=== PATIENT | female | born 1940 | race Caucasian/White ===

== ENCOUNTER → 2017-02-23 | Outpatient (CLI) | payer MEDICARE ==
[2017-02-23 11:40] LABS: ALANINE AMINOTRANSFERASE 23 U/L (9-52); ALBUMIN 4.3 g/dL (3.5-5.0); ALKALINE PHOSPHATASE 110 U/L (38-126); ANION GAP 12 (5-19); ASPARTATE AMINO TRANSFERASE 23 U/L (14-36); BILIRUBIN,DIRECT 0.3 mg/dL (0.0-0.4); BILIRUBIN,TOTAL 0.7 mg/dL (0.2-1.3); BLOOD UREA NITROGEN 45 mg/dL (7-20); CALCIUM 10.3 mg/dL (8.4-10.2); CARBON DIOXIDE 22 mmol/L (22-30); CHLORIDE 110 mmol/L (98-107); CHOLESTEROL 163.13 mg/dL (0-200); CREATININE RESULT 1.41 mg/dL (0.52-1.25); Direct HDL 47 mg/dL (>40); GLUCOSE 117 mg/dL (75-110); POTASSIUM 5.9 mmol/L (3.6-5.0); SODIUM 143.9 mmol/L (137-145); TOTAL PROTEIN 6.9 g/dL (6.3-8.2); TRIGLYCERIDES 152 mg/dL (<150)
[2017-02-23 11:53] LABS: DIRECT LDL 69 mg/dL (<100)
[2017-02-23 11:55] LABS: VLDL CHOLESTEROL 30.4 mg/dL (10-31)
== END ==
LOC: OD 09:27
PROVIDERS: ATTEND Internal Medicine
DX: I25.10 Atherosclerotic heart disease of native coronary artery without angina pectoris (principal); E78.4 Other hyperlipidemia; I10 Essential (primary) hypertension; Z79.899 Other long term (current) drug therapy; I25.2 Old myocardial infarction; I34.0 Nonrheumatic mitral (valve) insufficiency; I35.1 Nonrheumatic aortic (valve) insufficiency; I36.1 Nonrheumatic tricuspid (valve) insufficiency; I42.8 Other cardiomyopathies; R09.89 Other specified symptoms and signs involving the circulatory and respiratory systems
CPT/HCPCS: 36415; 80053; 80061

== ENCOUNTER 2017-08-10 10:26 | Observation (INO) | payer MEDICARE ==
--- NOTE | 2017-08-10 11:13 | ER Document Report ---
ED Medical Screen (RME) - General Chief Complaint: Shortness Of Breath Stated Complaint: SHORTNESS OF BREATH Time Seen by Provider: 08/10/17 11:11 Notes: Patient presents with 1 week of shortness of breath with exertion. She states she has not had any pain. She states probably 15 years ago she had a "heart attack" that required open heart surgery. She states at that time she did not have any pain but just shortness of breath as well. She is had no cough or cold symptoms. She denies any chronic lung conditions. Patient states that she did have a blood clot 2 years ago and took 6 months of Eliquis. She denies a history of heart failure. TRAVEL OUTSIDE OF THE [place] 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
[2017-08-10 11:59] LABS: HEMATOCRIT 40.7 % (36.0-47.0); HEMOGLOBIN 13.8 g/dL (12.0-15.5); HGB HCT DIFFERENCE 0.7; MEAN CORPUSCULAR HEMOGLOBIN 33.9 pg (27.0-33.4); MEAN CORPUSCULAR VOLUME 100 fl (80-97); RED BLOOD COUNT 4.08 10^6/uL (3.72-5.28); WHITE BLOOD COUNT 10.5 10^3/uL (4.0-10.5)
[2017-08-10 12:14] LABS: ALANINE AMINOTRANSFERASE 17 U/L (9-52); ALBUMIN 3.8 g/dL (3.5-5.0); ALKALINE PHOSPHATASE 124 U/L (38-126); ANION GAP 14 (5-19); ASPARTATE AMINO TRANSFERASE 21 U/L (14-36); BILIRUBIN,DIRECT 0.5 mg/dL (0.0-0.4); BILIRUBIN,TOTAL 0.7 mg/dL (0.2-1.3); BLOOD UREA NITROGEN 42 mg/dL (7-20); CALCIUM 9.9 mg/dL (8.4-10.2); CARBON DIOXIDE 20 mmol/L (22-30); CHLORIDE 109 mmol/L (98-107); CREATININE RESULT 1.55 mg/dL (0.52-1.25); GLUCOSE 117 mg/dL (75-110); POTASSIUM 4.4 mmol/L (3.6-5.0); SODIUM 143.1 mmol/L (137-145); TOTAL PROTEIN 6.8 g/dL (6.3-8.2)
[2017-08-10 12:24] LABS: BAND NEUTROPHILS % (MANUAL) 2 % (3-5); BASOPHILS % (MANUAL) 0 % (0-2); EOSINOPHILS % (MANUAL) 8 % (0-6); LYMPHOCYTES % (MANUAL) 15 % (13-45); TOTAL CELLS COUNTED 100
[2017-08-10 12:25] LABS: TROPONIN I 0.014 ng/mL
[2017-08-10 12:31] LABS: ANISOCYTOSIS SLIGHT; OVALOCYTES SLIGHT; PLATELET CLUMPS PRESENT; POIKILOCYTOSIS SLIGHT
--- NOTE | 2017-08-10 12:31 | ER Document Report ---
ED Respiratory Problem - General Chief Complaint: Shortness Of Breath Stated Complaint: SHORTNESS OF BREATH Time Seen by Provider: 08/10/17 11:11 Information source: Patient Notes: 77-year-old female that presents today with around 2 weeks of some shortness of breath only with ambulation. She denies any and all chest pain. She denies any calf pain or leg swelling. She denies any recent trips or travel. Patient has had a bypass around 14 years ago secondary to myocardial infarction. Patient did have a DVT 2 years ago and was treated on 6 months of Eliquis. Patient denies any difficulty with laying completely flat at night. TRAVEL OUTSIDE OF THE [place] IN LAST 30 DAYS: No - HPI Onset: Other - See above Duration: Better Quality of pain: No pain Severity: Mild Pain Level: Denies Context: Other - See above Short of Breath: Mild Sputum amount: None Associated symptoms: Other - See above Similar symptoms previously: Yes Recently seen / treated by doctor: No - Related Data Allergies/Adverse Reactions: No Known Allergies Allergy (Verified 08/10/17 10:33) Past Medical History - General Information source: Patient - Social History Smoking Status: Unknown if Ever Smoked Cigarette use (# per day): No Chew tobacco use (# tins/day): No Smoking Education Provided: No Frequency of alcohol use: None Family History: Reviewed & Not Pertinent - Past Medical History Cardiac Medical History: Reports: Hx Coronary Artery Disease - ON MEDICATION FOR CHOLESTEROL, Hx Heart Attack, Hx Hypercholesterolemia, Hx Hypertension Pulmonary Medical History: Denies: Hx Asthma, Hx Bronchitis, Hx COPD, Hx Pneumonia Neurological Medical History: Denies: Hx Cerebrovascular Accident, Hx Seizures Renal/ Medical History: Denies: Hx Peritoneal Dialysis Musculoskeltal Medical History: 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 denies: Rash Neurological/Psychological: Other - no slurred speech -: Yes All other systems reviewed and negative Physical Exam - Vital signs Vitals: Temp Pulse Resp BP Pulse Ox 97.7 F 78 18 156/78 H 99 08/10/17 10:30 08/10/17 10:30 08/10/17 10:30 08/10/17 10:30 08/10/17 10:30 Notes: Reviewed vital signs and nursing note as charted by RN. CONSTITUTIONAL: Alert and oriented and responds appropriately to questions. Well -appearing; well-nourished HEAD: Normocephalic; atraumatic EYES: PERRL; Conjunctivae clear, sclerae non-icteric ENT: Normal nose; no rhinorrhea NECK: Supple without meningismus; non-tender; no cervical lymphadenopathy, no masses CARD: Regular rate and rhythm; no murmurs, no clicks, no rubs, no gallops; symmetric distal pulses RESP: Normal chest excursion without splinting or tachypnea; breath sounds clear and equal bilaterally; no wheezes, no rhonchi, no rales ABD/GI: Normal bowel sounds; non-distended; soft, non-tender, no rebound, no guarding; no palpable organomegaly or masses BACK: The back appears normal and is non-tender to palpation, there is no CVA tenderness EXT: Normal ROM in all joints; non-tender to palpation; no edema SKIN: Normal color for age and race; warm; dry; good turgor; capillary refill < 2 seconds; no acute lesions noted NEURO: Moves all extremities equally; Motor and sensory function intact PSYCH: The patient's mood and manner are appropriate. Grooming and personal hygiene are appropriate. Course - Re-evaluation Re-evalutation: 08/10/17 12:29 Given the history and physical examination we will order basic labs, EKG, x-ray of the chest, and reassess. Given that the patient denies any and all chest pain, with shortness of breath only upon exertion, relieved with rest, with no calf pain or leg swelling, no recent trips or travel, I do not believe a DVT is likely at this time. EKG shows a heart of 78, normal sinus rhythm, normal axis, no obvious ST elevation or depression. Inverted T waves in lead III with flattening T waves in leads II, aVF, V5 and V6. Old EKG from 2012 show similar findings. D-dimer that was ordered in triage is positive. CTA has been ordered. I will provide 500 cc normal saline. Patient's creatinine as recorded. Patient does have an elevated BNP. 08/10/17 13:43 I was called by the radiologist that it appears the patient has a pulmonary embolism. 08/10/17 14:01 I have called and spoke to the hospitalist Dr. Johnston. He would like me to give a 1mg/kg subcu Lovenox dose despite the creatinine at this time and will adjust accordingly. - Vital Signs Vital signs: Temp Pulse Resp BP Pulse Ox 97.7 F 78 18 156/78 H 99 08/10/17 10:30 08/10/17 10:30 08/10/17 10:30 08/10/17 10:30 08/10/17 10:30 - Laboratory Result Diagrams: 08/10/17 11:45 08/10/17 11:45 Laboratory results interpreted by me: 08/10/17 08/10/17 08/10/17 11:45 11:45 11:45 MCV 100 H MCH 33.9 H Band Neutrophils % 2 L Eosinophils % (Manual) 8 H Absolute Eos (Manual) 0.8 H D-Dimer 6.53 H Chloride 109 H Carbon Dioxide 20 L BUN 42 H Creatinine 1.55 H Est GFR ( Amer) 39 L Est GFR (Non-Af Amer) 32 L Glucose 117 H Direct Bilirubin 0.5 H NT-Pro-B Natriuret Pep 08/10/17 11:45 MCV MCH Band Neutrophils % Eosinophils % (Manual) Absolute Eos (Manual) D-Dimer Chloride Carbon Dioxide BUN Creatinine Est GFR ( Amer) Est GFR (Non-Af Amer) Glucose Direct Bilirubin NT-Pro-B Natriuret Pep 2450 H Discharge - Discharge Clinical Impression: Pulmonary embolism Qualifiers: Pulmonary embolism type: other Chronicity: acute Acute cor pulmonale presence: without acute cor pulmonale Qualified Code(s): I26.99 - Other pulmonary embolism without acute cor pulmonale Condition: Fair Disposition: ADMITTED INPATIENT Admitting Provider: Hospitalist Unit Admitted: Telemetry
[2017-08-10] MEDS ORDERED: NORMAL SALINE 1000 ML 1,000 ML IV ONE (12:32)
--- NOTE | 2017-08-10 13:23 | RADIOLOGY REPORT (SQ) ---
EXAM DESCRIPTION: CHEST PA/LAT COMPLETED DATE/TIME: 08/10/2017 12:18 pm REASON FOR STUDY: sob COMPARISON: 08/03/2013 EXAM PARAMETERS: NUMBER OF VIEWS: two views TECHNIQUE: Digital Frontal and Lateral radiographic views of the chest acquired. RADIATION DOSE: NA LIMITATIONS: none FINDINGS: LUNGS AND PLEURA: Parenchymal opacities at the lung bases. No pneumothorax. No effusions . MEDIASTINUM AND HILAR STRUCTURES: No masses or contour abnormalities. HEART AND VASCULAR STRUCTURES: Heart normal size. No evidence for failure. BONES: Scoliosis. Old posttraumatic changes of the left shoulder. HARDWARE: CABG hardware. OTHER: No other significant finding. IMPRESSION: Basilar pneumonitis. TECHNICAL DOCUMENTATION: JOB ID: [id number] [employer]- All Rights Reserved
--- NOTE | 2017-08-10 13:37 | RADIOLOGY REPORT (SQ) ---
EXAM DESCRIPTION: CTA CHEST COMPLETED DATE/TIME: 08/10/2017 1:09 pm REASON FOR STUDY: 9, sob COMPARISON: None. TECHNIQUE: CT scan of the chest performed using helical scanning technique with dynamic intravenous contrast injection. Images reviewed with lung, soft tissue and bone windows. Reconstructed coronal and sagittal MPR images reviewed. Additional 3 dimensional post-processing performed to develop Maximal Intensity Projection images (CA P). All images stored on PACS. All CT scanners at this facility use dose modulation, iterative reconstruction, and/or weight based d osing when appropriate to reduce radiation dose to as low as reasonably achievable (ALARA). [facility]: Dose Right [facility]: CareDose [facility]: Dose Right [facility]: Teradose 4D [facility]: Coreval[employer] Systems CONTRAST TYPE AND DOSE: contrast/concentration: Isovue 370.00 mg/ml; Total Contrast Delivered: 71.0 ml; Total Saline Delivered: 96.5 ml Contrast bolus optimized for the pulmonary arteries. Not diagnostic for the aorta. RENAL FUNCTION: BUN 42 creatinine 1.6 RADIATION DOSE: Up-to-date CT equipment and radiation dose reduction techniques were employed. CTDIv ol: 16.5 - 23.7 mGy. DLP: 879 mGy-cm. . LIMITATIONS: Positioning. Motion. FINDINGS: LUNGS AND PLEURA: Subsegmental airspace opacities in the right upper lobe and both lower l obes. No effusions. AORTA AND GREAT VESSELS: No aneurysm. Contrast bolus not optimized for the aorta. HEART: No pericardial effusion. Cardiomegaly. Coronary arterial calcifications. PULMONARY ARTERIES: Filling defects in the right main pulmonary artery and distal branches. HILAR AND MEDIASTINAL STRUCTURES: No identified masses or abnormal nodes. HARDWARE: CABG. UPPER ABDOMEN: Cholelithiasis. THYROID AND OTHER SOFT TISSUES: No masses. No adenopathy. BONES: No acute or significant finding. 3D MIPS: Confirm above findings. OTHER: No other significant finding. IMPRESSION: Positive for pulmonary emboli. COMMENT: Pertinent positive findings of the imaging study reported to SARAH NELSON MD at13:31 on 10/2017. Quality ID # [id number]: Final reports with documentation of one or more dose reduction techniques (e.g., Au tomated exposure control, adjustment of the mA and/or kV according to patient size, use of iterative reconstruction technique) TECHNICAL DOCUMENTATION: JOB ID: [id number] [employer]- All Rights Reserved
[2017-08-10] MEDS ORDERED: ENOXAPARIN SODIUM INJ 80 MG/0.8 ML DISP.SYRIN SUBCUT SCH (14:00)
[2017-08-10] MEDS ORDERED: ONDANSETRON HCL INJ/PF 4 MG/2 ML SDV IV PRN (14:35)
[2017-08-10] MEDS ORDERED: ONDANSETRON 4 MG TAB.RAPDIS PO PRN (14:35)
[2017-08-10] MEDS ORDERED: ACETAMINOPHEN 325 MG TABLET PO PRN (14:35)
[2017-08-10] MEDS ORDERED: ALBUTEROL SULFATE 0.083% NEB 2.5 MG/3 ML AMPUL NEB PRN (14:35)
[2017-08-10] MEDS ORDERED: TRAMADOL HCL 50 MG TABLET PO PRN (14:47)
[2017-08-10] MEDS ORDERED: OXYCODONE-ACETAMINOPHEN 5-325 MG TABLET PO PRN ×2 (14:47→15:02)
--- NOTE | 2017-08-10 15:06 | PDOC H&P ---
History of Present Illness Admission Date/PCP: 08/10/17 14:22 Patient complains of: Shortness of breath for 2 weeks. History of Present Illness: SARBJIT BECERRIL is a 77 year old female has a history of DVT in the past and had been on blood thinner previously. She presents with a two-week history of worsening shortness of breath. The patient reports over the last 2 weeks her breathing has gotten worse. She becomes dyspneic with minimal exertion. Her family finally convinced her to come to the emergency room when she was having difficulty going to the bathroom because of shortness of breath. The patient was found to have a right-sided pulmonary embolism in the right main artery as well as clot present in some distal branches. Patient denies having any chest pain with this. She denies having any palpitations. She denies any lower extremity edema. Denies any orthopnea or PND. The patient does have a history of coronary artery disease and the [id number] reports that her presenting sign of coronary disease was dyspnea on exertion. Past Medical History Cardiac Medical History: Reports: Coronary Artery Disease - ON MEDICATION FOR CHOLESTEROL, Myocardial Infarction, Hyperlipidema, Hypertension Pulmonary Medical History: Denies: Asthma, Bronchitis, Chronic Obstructive Pulmonary Disease (COPD), Pneumonia EENT Medical History: Reports: None Neurological Medical History: Denies: Seizures Endocrine Medical History: Reports: None Renal/ Medical History: Reports: Chronic Kidney Disease Malignancy Medical History: Reports: None GI Medical History: Reports: None Musculoskeltal Medical History: Reports: Arthritis - RHEUMATOID Psychiatric Medical History: Reports: None Traumatic Medical History: Reports: None Hematology: Denies: Anemia Infectious Medical History: Reports: None Past Surgical History Past Surgical History: Reports: Coronary Artery Bypass Graft Social History Information Source: Patient Lives with: Family Smoking Status: Never Smoker Frequency of Alcohol Use: None Hx Recreational Drug Use: No Drugs: None - Advance Directive Resuscitation Status: Do Not Resuscitate Family History Family History: Mother at age 94 and had no chronic health problems. Father at age 78 and had coronary artery disease as well as a CVA. Parental Family History Reviewed: Yes Children Family History Reviewed: No Sibling(s) Family History Reviewed.: No Medication/Allergy Home Medications: Amlodipine Besylate [Norvasc 5 mg Tablet] 5 mg PO QHS 07/03/13 Hydrochlorothiazide 25 mg PO DAILY 07/03/13 Isosorbide Mononitrate [Isosorbide Mononitrate ER] 30 mg PO DAILY 07/03/13 Losartan Potassium 100 mg PO DAILY 07/03/13 Metoprolol Tartrate [Lopressor 25 mg Tablet] 50 mg PO BID 07/03/13 Ramipril [Altace 10 mg Capsule] 1 cap PO BID 07/03/13 Acetaminophen [Tylenol 325 mg Tablet] 650 mg PO Q4HP PRN #60 tablet 07/06/13 Tramadol HCl [Ultram 50 mg Tablet] 50 mg PO Q6HP PRN #30 tablet 07/06/13 Aspirin [Aspirin EC] 81 mg PO DAILY 08/03/13 Ciprofloxacin HCl [Cipro 500 mg Tablet] 500 mg PO BID 08/10/13 Oxycodone HCl/Acetaminophen [Percocet 5-325 mg Tablet] 1 - 2 tab PO ASDIR PRN Cephalexin Monohydrate [Keflex 500 mg Capsule] 500 mg PO QID #28 capsule Allergies/Adverse Reactions: No Known Allergies Allergy (Verified 08/10/17 10:33) Review of Systems Constitutional: ABSENT: chills, fever(s), headache(s), weight gain, weight loss Eyes: ABSENT: visual disturbances Ears: ABSENT: hearing changes Cardiovascular: PRESENT: dyspnea on exertion. ABSENT: chest pain, edema, orthropnea, palpitations Respiratory: PRESENT: dyspnea. ABSENT: cough, hemoptysis, sputum Gastrointestinal: ABSENT: abdominal pain, constipation, diarrhea, hematemesis, hematochezia, nausea, vomiting Genitourinary: ABSENT: dysuria, hematuria Musculoskeletal: ABSENT: joint swelling Integumentary: ABSENT: rash, wounds Neurological: ABSENT: abnormal gait, abnormal speech, confusion, dizziness, focal weakness, syncope Psychiatric: ABSENT: anxiety, depression Endocrine: ABSENT: cold intolerance, heat intolerance, polydipsia, polyuria Hematologic/Lymphatic: ABSENT: easy bleeding, easy bruising Physical Exam Vital Signs: Temp Pulse Resp BP Pulse Ox 97.7 F 78 18 156/78 H 99 08/10/17 10:30 08/10/17 10:30 08/10/17 10:30 08/10/17 10:30 08/10/17 10:30 General appearance: PRESENT: mild distress Head exam: PRESENT: atraumatic, normocephalic Eye exam: PRESENT: conjunctiva pink, EOMI, PERRLA. ABSENT: scleral icterus Ear exam: PRESENT: normal external ear exam Mouth exam: PRESENT: moist, tongue midline Neck exam: ABSENT: JVD Respiratory exam: PRESENT: clear to auscultation paco. ABSENT: rales, rhonchi, wheezes Cardiovascular exam: PRESENT: RRR. ABSENT: diastolic murmur, rubs, systolic murmur Pulses: PRESENT: normal dorsalis pedis pul Vascular exam: PRESENT: normal capillary refill GI/Abdominal exam: PRESENT: normal bowel sounds, soft. ABSENT: distended, guarding, mass, organolmegaly, rebound, tenderness Rectal exam: PRESENT: deferred Extremities exam: ABSENT: calf tenderness, clubbing, pedal edema Neurological exam: PRESENT: alert, awake, oriented to person, oriented to place , oriented to time, oriented to situation, CN II-XII grossly intact. ABSENT: motor sensory deficit Psychiatric exam: PRESENT: appropriate affect Skin exam: PRESENT: dry, intact, warm. ABSENT: cyanosis, rash Results Impressions: Chest X-Ray 08/10/17 11:11 IMPRESSION: Basilar pneumonitis. Chest/Abdomen CTA 08/10/17 12:31 IMPRESSION: Positive for pulmonary emboli. Assessment & Plan - Diagnosis (1) Pulmonary embolism Qualifiers: Pulmonary embolism type: other Chronicity: acute Acute cor pulmonale presence: without acute cor pulmonale Qualified Code(s): I26.99 - Other pulmonary embolism without acute cor pulmonale Is this a current diagnosis for this admission?: Yes Plan: Patient has received a dose of Lovenox. Will start on Eliquis. She is not hypoxic but is dyspneic with minimal exertion. We will admit as an observation and if she is not hypoxic tomorrow, we can hopefully discharge home tomorrow. (2) Hypertension Is this a current diagnosis for this admission?: Yes Plan: Continue with Lopressor, Norvasc, hydrochlorothiazide, Altace. (3) Hyperlipidemia Is this a current diagnosis for this admission?: Yes Plan: Continue with Zocor. (4) Coronary artery disease Is this a current diagnosis for this admission?: Yes Plan: we will continue with aspirin 81 mg and Imdur. (5) Osteoarthritis Is this a current diagnosis for this admission?: Yes (6) DNR (do not resuscitate) Is this a current diagnosis for this admission?: Yes Plan: Patient requests to be a DO NOT RESUSCITATE. - Time Time Spent: 50 to 70 Minutes - Plan Summary Plan Summary: Will admit as an observation.
[2017-08-10 15:31] LABS: PROTHROMBIN TIME 13.5 SEC (11.4-15.4)
[2017-08-10 15:32] LABS: PARTIAL THROMBOPLASTIN TIME 29.7 SEC (23.5-35.8)
[2017-08-10] MEDS ORDERED: METOPROLOL TARTRATE 25 MG TABLET PO SCH (18:00)
[2017-08-10] MEDS ORDERED: RAMIPRIL 10 MG CAPSULE PO SCH (18:00)
[2017-08-10 18:04] LABS: CREATINE KINASE MB 2.21 ng/mL (<4.55); TROPONIN I 0.016 ng/mL
[2017-08-10] MEDS: APIXABAN 5 MG TABLET PO SCH (18:33)
--- NOTE | 2017-08-10 19:53 | EKG REPORT ---
SEVERITY:- BORDERLINE ECG - SINUS RHYTHM BORDERLINE T ABNORMALITIES, INFERIOR LEADS : Confirmed by: Linh Winter 10-Aug-2017 19:52:30
[2017-08-10] MEDS ORDERED: SIMVASTATIN 40 MG TABLET PO SCH (22:00)
[2017-08-10] MEDS ORDERED: FAMOTIDINE 20 MG TABLET PO SCH (22:00)
[2017-08-10] MEDS ORDERED: MIRTAZAPINE 15 MG TABLET PO SCH (22:00)
[2017-08-10] MEDS: RAMIPRIL 10 MG CAPSULE PO SCH (22:32)
[2017-08-10] MEDS: FAMOTIDINE 20 MG TABLET PO SCH (22:33)
[2017-08-10] MEDS: METOPROLOL TARTRATE 50 MG TABLET PO SCH (22:33)
[2017-08-11 00:09] LABS: CREATINE KINASE MB 2.16 ng/mL (<4.55); TROPONIN I 0.024 ng/mL
[2017-08-11 05:53] LABS: HEMOGLOBIN 12.7 g/dL (12.0-15.5); HGB HCT DIFFERENCE -0.9; MEAN CORPUSCULAR HEMOGLOBIN 32.5 pg (27.0-33.4); MEAN CORPUSCULAR HGB CONC 32.6 g/dL (32.0-36.0); MEAN CORPUSCULAR VOLUME 100 fl (80-97); RED BLOOD COUNT 3.91 10^6/uL (3.72-5.28); RED CELL DISTRIBUTION WIDTH 14.2 % (11.5-14.0); WHITE BLOOD COUNT 7.5 10^3/uL (4.0-10.5)
[2017-08-11 06:08] LABS: ANION GAP 11 (5-19); BLOOD UREA NITROGEN 31 mg/dL (7-20); CALCIUM 9.9 mg/dL (8.4-10.2); CARBON DIOXIDE 19 mmol/L (22-30); CHLORIDE 114 mmol/L (98-107); CREATINE KINASE 59 U/L (30-135); CREATININE RESULT 1.19 mg/dL (0.52-1.25); GLUCOSE 98 mg/dL (75-110); MAGNESIUM 1.6 mg/dL (1.6-2.3); POTASSIUM 4.4 mmol/L (3.6-5.0); SODIUM 143.6 mmol/L (137-145)
[2017-08-11 06:20] LABS: CREATINE KINASE MB 2.1 ng/mL (<4.55); TROPONIN I 0.028 ng/mL
[2017-08-11] MEDS: FAMOTIDINE 20 MG TABLET PO SCH (09:44)
[2017-08-11] MEDS: RAMIPRIL 10 MG CAPSULE PO SCH (09:45)
[2017-08-11] MEDS: APIXABAN 5 MG TABLET PO SCH (09:45)
[2017-08-11] MEDS: METOPROLOL TARTRATE 50 MG TABLET PO SCH (09:46)
[2017-08-11] MEDS ORDERED: HYDROCHLOROTHIAZIDE 12.5 MG CAPSULE PO SCH (10:00)
[2017-08-11] MEDS ORDERED: ISOSORBIDE MONONITRATE 30 MG TAB.ER.24H PO SCH (10:00)
[2017-08-11] MEDS ORDERED: HYDROCHLOROTHIAZIDE 25 MG TABLET PO SCH (10:00)
[2017-08-11] MEDS ORDERED: ASPIRIN 81 MG TABLET, ENT COATED PO SCH (10:00)
--- NOTE | 2017-08-11 10:22 | Physician Advisory Note ---
Physician Advisor ProgressNote .: [facility] I have reviewed [facility] medical record for this patient. Physician Advisor Statement: Please consider documenting, if you believe this is accurate for this pt: 1. "Mild acute respiratory failure with P/F ratio of 286 associated with "Verdana 4d [significant acute sx present at same time, especially if evidence of increased work of breathing] - Pt's O2 sat 95% on 2L O2 this AM gives a P/F ratio of 286, which is consistent with "mild acute respiratory failure" if she is also, at same time, having significant acute sx (especially evidence of increased work of breathing) , which are documented. Status: If she is felt to clinically need ongoing hospital level care & monitoring for a 2nd MN, please document reasons & may consider change to Inpatient status. Thanks! CK
--- NOTE | 2017-08-11 11:50 | PDOC DISCHARGE SUMMARY ---
General - Admit/Disc Date/PCP Admission Date/Primary Care Provider: 08/10/17 14:35 Discharge Date: 08/11/17 - Discharge Diagnosis (1) Respiratory failure Is this a current diagnosis for this admission?: Yes Summary: Mild respiratory failure secondary to acute pulmonary embolism. She is not hypoxic on room air. (2) Pulmonary embolism Is this a current diagnosis for this admission?: Yes Summary: Patient has had a previous DVT several years ago. Given that this is her second dose she needs lifelong anticoagulation. (3) Hypertension Is this a current diagnosis for this admission?: Yes (4) Hyperlipidemia Is this a current diagnosis for this admission?: Yes (5) Coronary artery disease Is this a current diagnosis for this admission?: Yes (6) Osteoarthritis Is this a current diagnosis for this admission?: Yes (7) DNR (do not resuscitate) Is this a current diagnosis for this admission?: Yes - Additional Information Resuscitation Status: Do Not Resuscitate Discharge Diet: Cardiac Discharge Activity: Activity As Tolerated Home Medications: Acetaminophen [Tylenol Arthritis 650 mg Tablet] 1,300 mg PO [facility] 08/10/17 Acetaminophen [Tylenol Arthritis 650 mg Tablet] 650 mg PO QHS 08/10/17 Amlodipine Besylate [Norvasc 10 mg Tablet] 10 mg PO DAILY 08/10/17 Aspirin [Aspirin EC] 81 mg PO DAILY 08/10/17 Cholecalciferol (Vitamin D3) [Vitamin D3 1000 Unit Tablet] 1,000 unit PO DAILY 08/10/17 Diclofenac Sodium [Voltaren] 1 applic TP [facility] 08/10/17 Hydrochlorothiazide [Hydrodiuril 25 mg Tablet] 25 mg PO DAILY 08/10/17 Isosorbide Mononitrate [Isosorbide Mononitrate ER] 30 mg PO DAILY 08/10/17 Metoprolol Tartrate [Lopressor 50 mg Tablet] 50 mg PO Q12 08/10/17 Mirtazapine 7.5 mg PO QHS 08/10/17 Ramipril [Altace 10 mg Capsule] 10 mg PO Q12 08/10/17 Simvastatin [Zocor 40 mg Tablet] 40 mg PO QHS 08/10/17 Tramadol HCl [Ultram 50 mg Tablet] 100 mg PO QA 08/10/17 Apixaban [Eliquis 5 mg Tablet] 5 mg PO BID #60 tablet 08/11/17 Oxycodone HCl/Acetaminophen [Percocet 5-325 mg Tablet] 1 tab PO Q4HP PRN #10 tablet 08/11/17 History of Present Illness History of Present Illness: SARBJIT BECERRIL is a 77 year old female has a history of DVT in the past and had been on blood thinner previously. She presents with a two-week history of worsening shortness of breath. The patient reports over the last 2 weeks her breathing has gotten worse. She becomes dyspneic with minimal exertion. Her family finally convinced her to come to the emergency room when she was having difficulty going to the bathroom because of shortness of breath. The patient was found to have a right-sided pulmonary embolism in the right main artery as well as clot present in some distal branches. Patient denies having any chest pain with this. She denies having any palpitations. She denies any lower extremity edema. Denies any orthopnea or PND. The patient does have a history of coronary artery disease and the [id number] reports that her presenting sign of coronary disease was dyspnea on exertion. Hospital Course Hospital Course: 77-year-old who presented with two-week history of shortness of breath. Patient was found to have a right-sided pulmonary emboli. Patient had one clot in the mainstem and several smaller clots in the small branches. The patient short of breath but was not hypoxic. She also was not tachypneic at rest. Patient was monitored overnight and started on Eliquis. The patient shows no evidence for congestive heart failure. It is felt that she is stable for discharge to home. She did show some mild respiratory failure which she presented. The patient's oxygen saturations at rest were greater than 90%. The patient has a history of coronary artery disease and serial troponins were checked and they were in the normal range. Patient's other medical problems were stable during this hospitalization. We will discharge the patient home with home health for physical therapy as she is very debilitated. Physical Exam Vital Signs: Temp Pulse Resp BP Pulse Ox 98.5 F 86 18 178/73 H 96 08/11/17 07:19 08/11/17 10:12 08/11/17 10:12 08/11/17 07:19 08/11/17 10:12 Intake & Output 08/10/17 08/11/17 08/12/17 06:59 06:59 06:59 Intake Total 20 Output Total 400 Balance -380 Weight 71.8 kg General appearance: PRESENT: no acute distress Eye exam: PRESENT: conjunctiva pink. ABSENT: scleral icterus Mouth exam: PRESENT: moist, tongue midline Neck exam: ABSENT: JVD Respiratory exam: PRESENT: clear to auscultation paco. ABSENT: rales, rhonchi, wheezes Cardiovascular exam: PRESENT: RRR. ABSENT: diastolic murmur, rubs, systolic murmur GI/Abdominal exam: PRESENT: normal bowel sounds, soft. ABSENT: distended, guarding, mass, organolmegaly, rebound, tenderness Extremities exam: ABSENT: calf tenderness, clubbing, pedal edema Neurological exam: PRESENT: alert, awake, oriented to person, oriented to place , oriented to time, oriented to situation, CN II-XII grossly intact. ABSENT: motor sensory deficit Psychiatric exam: PRESENT: appropriate affect Skin exam: PRESENT: dry, intact, warm. ABSENT: cyanosis, rash Results Laboratory Results: 08/11/17 05:32 08/11/17 05:32 08/11/17 08/11/17 05:32 05:32 WBC 7.5 RBC 3.91 Hgb 12.7 Hct 39.0 MCV 100 H MCH 32.5 MCHC 32.6 RDW 14.2 H Plt Count 267 Sodium 143.6 Potassium 4.4 Chloride 114 H Carbon Dioxide 19 L Anion Gap 11 BUN 31 H Creatinine 1.19 Est GFR ( Amer) 53 L Est GFR (Non-Af Amer) 44 L Glucose 98 Calcium 9.9 Magnesium 1.6 08/10/17 08/10/17 08/10/17 17:30 17:30 23:35 Creatine Kinase 77 60 CK-MB (CK-2) 2.21 Troponin I 0.016 08/10/17 08/11/17 08/11/17 23:35 05:32 05:32 Creatine Kinase 59 CK-MB (CK-2) 2.16 2.10 Troponin I 0.024 0.028 Impressions: Chest X-Ray 08/10/17 11:11 IMPRESSION: Basilar pneumonitis. Chest/Abdomen CTA 08/10/17 12:31 IMPRESSION: Positive for pulmonary emboli. Qualifiers PATEINT BEING DISCHARGED WITH ANY OF THE FOLLOWING DIAGNOSIS?: No Plan Discharge Plan: Patient is discharged home with home health for physical therapy. Follow-up with primary care doctor in 1 week. Time Spent: Less than 30 Minutes
[2017-08-11 14:33] VITALS: BP 141/62
== END 2017-08-11 14:23 | disposition home health service (06) ==
LOC: ER 10:26 → INTOOBSV 14:22 → UNDOADMOB 14:22 → EH 14:22 → 3W 20:25
PROVIDERS: ADMIT Internal Medicine; ATTEND Internal Medicine
DX: I26.99 Other pulmonary embolism without acute cor pulmonale (principal); J96.91 Respiratory failure, unspecified with hypoxia; I12.9 Hypertensive chronic kidney disease with stage 1 through stage 4 chronic kidney disease, or unspecified chronic kidney disease; N18.9 Chronic kidney disease, unspecified; E78.5 Hyperlipidemia, unspecified; I25.10 Atherosclerotic heart disease of native coronary artery without angina pectoris; M19.90 Unspecified osteoarthritis, unspecified site; M06.9 Rheumatoid arthritis, unspecified; R53.81 Other malaise; I25.2 Old myocardial infarction; Z66 Do not resuscitate; Z79.82 Long term (current) use of aspirin; Z79.899 Other long term (current) drug therapy; Z86.718 Personal history of other venous thrombosis and embolism; Z95.1 Presence of aortocoronary bypass graft; Z82.49 Family history of ischemic heart disease and other diseases of the circulatory system; Z82.3 Family history of stroke
CPT/HCPCS: 93005; 99285; 96360; 36415 ×2; 82553 ×2; 82550 ×2; 83735; 85025; 85027; 85610; 85730; 80048; 80053; 84484 ×2; 85379; 83880; 71020; 71275; 93010; G0378 ×3; A9270 ×11; J3490; J7030; J1650

== ENCOUNTER 2018-10-01 14:16 | Inpatient (IN) | payer MEDICARE ==
--- NOTE | 2018-10-01 15:02 | ER Document Report ---
ED Respiratory Problem - General Chief Complaint: Shortness Of Breath Stated Complaint: SHORTNESS OF BREATH Time Seen by Provider: 10/01/18 14:36 Notes: Patient is complaining of getting short of breath with any exertion over the past 3-4 days. She has chronic difficulty breathing and has had blood clots in her legs and in her lungs in the past. She was on oxygen at one time but it has been discontinued because her oxygen level during the night was normal. She is currently on Eliquis 5 mg twice a day for about the past year since she had a pulmonary embolism last July. Patient says she has a slight cough at night when she lays down. Denies any chest pains. Denies any fevers. Has not noticed significant swelling of either lower leg. Earlier today, patient was complaining of blurry vision and sparkling vision in both eyes, but that symptoms as completely subsided now. She has had some left arm pain chronically and has a history of breaking her left arm. Patient had exactly the same symptoms of being out of breath, but no other symptoms when she had a heart attack over 15 years ago. She has undergone a CABG and is on medications for hypertension and high cholesterol. TRAVEL OUTSIDE OF THE [place] 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 EENT: Denies eye, ear, nose or mouth or throat pain or other symptoms. CARDIOVASCULAR: Denies chest pain. RESPIRATORY: Slight cough when she lays down at night. See HPI. GASTROINTESTINAL: Denies abdominal pain or nausea, vomiting, or diarrhea. GENITOURINARY: Denies difficulty or painful urinating, urinary frequency, blood in urine. MUSCULOSKELETAL: Denies back or neck pain. Denies joint pain or swelling. SKIN: Denies rash or skin lesions. NEUROLOGICAL: Denies LOC or altered mental status. Denies headache. Denies sensory loss or motor deficits. ALL OTHER SYSTEMS REVIEWED AND NEGATIVE. Physical Exam - Vital signs Vitals: Temp Pulse Resp BP Pulse Ox 98.1 F 67 18 101/50 L 99 10/01/18 14:36 10/01/18 14:36 10/01/18 14:36 10/01/18 14:36 10/01/18 14:36 Interpretation: Normal. No: Hypoxic - Notes Notes: PHYSICAL EXAMINATION: GENERAL: Well-appearing, in no acute distress. O2 sat 99% on room air. Does not appear short of breath. HEAD: Atraumatic, normocephalic. EYES: Pupils equal round and reactive to light, extraocular movements intact. ENT: oropharynx clear without exudates. Moist mucous membranes. NECK: Normal range of motion, supple. LUNGS: Breath sounds clear and equal bilaterally. HEART: Regular rate and rhythm without murmurs. ABDOMEN: Soft, nontender. No guarding or rebound. No masses. Rectal exam reveals no masses. Merida-black stool on glove. No suzan blood and no melena. BACK: No tenderness throughout entire back. EXTREMITIES: Normal range of motion without pain. No swelling or tenderness of either side. Negative Homans bilaterally. NEUROLOGICAL: Normal speech, normal gait. Uses a walker. Appears weak. Normal sensory, motor, and reflex exams. Awake, alert, and oriented x3. PSYCH: Normal mood, normal affect. SKIN: Warm, dry, no rashes. Course - Vital Signs Vital signs: Temp Pulse Resp BP Pulse Ox 97.6 F 61 16 120/56 L 99 10/01/18 17:35 10/01/18 17:35 10/01/18 17:35 10/01/18 17:35 10/01/18 17:35 - Laboratory Result Diagrams: 10/01/18 15:30 10/01/18 15:30 Laboratory results interpreted by me: 10/01/18 10/01/18 10/01/18 15:30 15:30 15:30 RBC 1.60 L Hgb 5.6 L Hct 17.1 L MCV 107 H MCH 35.0 H RDW 17.7 H VBG HCO3 Chloride 113 H Carbon Dioxide 19 L BUN 50 H Creatinine 1.33 H Est GFR ( Amer) 46 L Est GFR (Non-Af Amer) 38 L Creatine Kinase 25 L NT-Pro-B Natriuret Pep 2400 H Total Protein 4.9 L Albumin 2.8 L Urine Nitrite Ur Leukocyte Esterase Crossmatch 10/01/18 10/01/18 10/01/18 15:30 16:21 17:05 RBC Hgb Hct MCV MCH RDW VBG HCO3 17.9 L Chloride Carbon Dioxide BUN Creatinine Est GFR ( Amer) Est GFR (Non-Af Amer) Creatine Kinase NT-Pro-B Natriuret Pep Total Protein Albumin Urine Nitrite POSITIVE H Ur Leukocyte Esterase SMALL H Crossmatch See Detail - Diagnostic Test Radiology reviewed: Image reviewed, Reports reviewed Radiology results interpreted by me: 10/01/18 17:44 Chest x-ray shows no acute abnormalities. - EKG Interpretation by [place] EKG shows normal: Sinus rhythm Rate: Normal Rhythm: NSR - At 61 Additional EKG results interpreted by me: 10/01/18 17:45 EKG is normal. Discharge - Discharge Clinical Impression: Anemia, Dyspnea Condition: Stable Disposition: ADMITTED INPATIENT Admitting Provider: Hospitalist Unit Admitted: Telemetry
[2018-10-01 16:03] LABS: VENOUS BLOOD BASE EXCESS -7.5 mmol/L; VENOUS BLOOD HCO3 17.9 mmol/L (20-32); VENOUS BLOOD PCO2 36.3 mmHg (35-63); VENOUS BLOOD PH 7.31 (7.30-7.42)
[2018-10-01 16:06] LABS: ABSOLUTE BASOPHILS # (AUTO) 0.1 10^3/uL (0.0-0.2); ABSOLUTE EOSINOPHILS # (AUTO) 0.4 10^3/uL (0.0-0.6); ABSOLUTE LYMPHOCYTES (AUTO) 2.1 10^3/uL (0.5-4.7); ABSOLUTE MONOCYTES (AUTO) 0.6 10^3/uL (0.1-1.4); ABSOLUTE NEUT (AUTO) 3.3 10^3/uL (1.7-8.2); EOSINOPHILS % (AUTO) 5.9 % (0-6); HEMATOCRIT 17.1 % (36.0-47.0); LYMPHOCYTES % (AUTO) 32.7 % (13-45); MEAN CORPUSCULAR HGB CONC 32.8 g/dL (32.0-36.0); MEAN CORPUSCULAR VOLUME 107 fl (80-97); MONOCYTES % (AUTO) 9.8 % (3-13); PLATELET COUNT 284 10^3/uL (150-450); RED CELL DISTRIBUTION WIDTH 17.7 % (11.5-14.0); SEGMENTED NEUTROPHILS % (AUTO) 50.6 % (42-78); TOTAL CELLS COUNTED % (AUTO) 100 %; WHITE BLOOD COUNT 6.5 10^3/uL (4.0-10.5)
[2018-10-01 16:08] LABS: ALANINE AMINOTRANSFERASE 16 U/L (9-52); ALBUMIN 2.8 g/dL (3.5-5.0); ALKALINE PHOSPHATASE 82 U/L (38-126); ANION GAP 9 (5-19); ASPARTATE AMINO TRANSFERASE 16 U/L (14-36); BILIRUBIN,DIRECT 0.2 mg/dL (0.0-0.4); BILIRUBIN,TOTAL 0.5 mg/dL (0.2-1.3); BLOOD UREA NITROGEN 50 mg/dL (7-20); CALCIUM 8.9 mg/dL (8.4-10.2); CARBON DIOXIDE 19 mmol/L (22-30); CHLORIDE 113 mmol/L (98-107); CREATINE KINASE 25 U/L (30-135); GLUCOSE 109 mg/dL (75-110); POTASSIUM 4.8 mmol/L (3.6-5.0); SODIUM 141.3 mmol/L (137-145); TOTAL PROTEIN 4.9 g/dL (6.3-8.2)
[2018-10-01 16:11] LABS: HEMOGLOBIN 5.6 g/dL (12.0-15.5)
[2018-10-01] MEDS ORDERED: NORMAL SALINE 250 ML IV PRN (16:18)
[2018-10-01 16:21] LABS: CREATINE KINASE MB 0.59 ng/mL (<4.55); NT PRO BNP 2400 pg/mL (<450)
[2018-10-01 16:22] LABS: TROPONIN I < 0.012 ng/mL
--- NOTE | 2018-10-01 16:29 | RADIOLOGY REPORT (SQ) ---
EXAM DESCRIPTION: CHEST 2 VIEWS COMPLETED DATE/TIME: 10/01/2018 3:45 pm REASON FOR STUDY: Short of breath COMPARISON: 08/10/2017 TECHNIQUE: Frontal and lateral radiographic views of the chest acquired. NUMBER OF VIEWS: Two view. LIMITATIONS: None. FINDINGS: LUNGS AND PLEURA: No pneumothorax. No consolidation or pleural effusion. MEDIASTINUM AND HILAR STRUCTURES: Stable. HEART AND VASCULAR STRUCTURES: Stable. BONES: No acute findings. HARDWARE: CABG. OTHER: No other significant finding. IMPRESSION: NO ACUTE FINDINGS. TECHNICAL DOCUMENTATION: JOB ID: [id number] [id number] 2010 [email or web address]- All Rights Reserved Reading location - IP/workstation name: [email or web address]
--- NOTE | 2018-10-01 16:49 | RADIOLOGY REPORT (SQ) ---
EXAM DESCRIPTION: VENOUS BILATERAL LOWER COMPLETED DATE/TIME: 10/01/2018 4:28 pm REASON FOR STUDY: Short of breath, Hx DVT and PE on Eliquis COMPARISON: None. TECHNIQUE: Dynamic and static mills scale and color images acquired of both lower extremity venous sy stems. Selected spectral images acquired with additional compression and augmentation maneuvers. Imag es stored on PACS. LIMITATIONS: None. FINDINGS: RIGHT LEG COMMON FEMORAL AND FEMORAL: Normal phasicity, compression and augmentation. No visualized echogenic m aterial on mills scale. No defects on color images. POPLITEAL: Normal compression and augmentation. No visualized echogenic material on mills scale. No de fects on color images. CALF VESSELS: Normal compression and augmentation. No visualized echogenic material on mills scale. No defects on color image. GSV AND SSV: Normal compression. No visualized echogenic material on mills scale. No defects on color images. ANY DEEP VENOUS INSUFFICIENCY: Not evaluated. ANY EVIDENCE OF POPLITEAL CYST: No. OTHER: No other significant finding. LEFT LEG COMMON FEMORAL AND FEMORAL: Normal phasicity, compression and augmentation. No visualized echogenic m aterial on mills scale. No defects on color images. POPLITEAL: Normal compression and augmentation. No visualized echogenic material on mills scale. No de fects on color images. CALF VESSELS: Normal compression and augmentation. No visualized echogenic material on mills scale. No defects on color images. GSV AND SSV: Normal compression. No visualized echogenic material on mills scale. No defects on color images. ANY DEEP VENOUS INSUFFICIENCY: Not evaluated. ANY EVIDENCE POPLITEAL CYST: No. OTHER: No other significant finding. IMPRESSION: NO EVIDENCE DVT OR SVT IN EITHER LEG. TECHNICAL DOCUMENTATION: JOB ID: [id number] [id number] 2010 [email or web address]- All Rights Reserved Reading location - IP/workstation name: [email or web address]
[2018-10-01 17:38] LABS: AMORPHOUS SEDIMENT,URINE TRACE /HPF; APPEARANCE,URINE SLIGHTLY-CLOUDY; BILIRUBIN,URINE NEGATIVE (NEGATIVE); COLOR,URINE YELLOW; GLUCOSE, URINE NEGATIVE (NEGATIVE); KETONES,URINE NEGATIVE (NEGATIVE); LEUKOCYTE ESTERASE,URINE SMALL (NEGATIVE); NITRITE,URINE POSITIVE (NEGATIVE); PROTEIN,URINE NEGATIVE (NEGATIVE); URINE SPECIFIC GRAVITY 1.019; UROBILINOGEN,URINE NEGATIVE mg/dL (<2.0)
[2018-10-01] MEDS ORDERED: MAGNESIUM HYDROXIDE SUSP 30 ML UDCUP PO PRN (18:32)
[2018-10-01] MEDS ORDERED: ONDANSETRON HCL INJ/PF 4 MG/2 ML SDV IV PRN (18:32)
[2018-10-01] MEDS ORDERED: MAG HYDROX/AL HYDROX/SIMETH SUSP 30 ML UDCUP PO PRN (18:32)
[2018-10-01] MEDS ORDERED: ONDANSETRON 4 MG TAB.RAPDIS PO PRN (18:32)
[2018-10-01] MEDS ORDERED: ACETAMINOPHEN 650 MG SUPP.RECT PR PRN (18:41)
[2018-10-01] MEDS ORDERED: ACETAMINOPHEN 325 MG TABLET PO PRN (18:41)
[2018-10-01] MEDS ORDERED: DOCUSATE SODIUM 100 MG CAPSULE PO ONE (20:00)
--- NOTE | 2018-10-01 20:00 | PDOC H&P ---
History of Present Illness Admission Date/PCP: 10/01/18 18:11 Patient complains of: Dyspnea on exertion History of Present Illness: SARBJIT BECERRIL is a 78 year old female who presented to the emergency room with a complaint of worsened dyspnea for the last 3-4 days. She admits that she has had worse than her normal level of dyspnea present for 3-4 days, was of rather abrupt onset and has been continuous since it began. She describes the dyspnea as moderate to severe and has noted that it is significantly worsened with activity or exertion and is somewhat relieved by rest. She has not identified any other aggravating or ameliorating factors for her dyspnea. She admits to one prior episode of similar symptoms that occurred when she had a heart attack many years ago. She does admit that she is taking Eliquis twice daily for treatment of a pulmonary embolism a little more than a year ago. She denies chest pain, palpitations, orthopnea, syncope, fever, chills, swelling of her extremities, nausea, vomiting, diarrhea, dysuria, hematuria, melena, hematochezia, epistaxis, pharyngitis, headache and rash. She does admit that she has a mild cough at times when she assumes a recumbent position and earlier on the day of admission she noticed some blurriness and flashing lights in the vision of both of her eyes that resolved spontaneously and is no longer present. In the emergency room she was found to have a hemoglobin of 5.6 and as such she was admitted to the hospitalist service for further evaluation and treatment. Past Medical History Cardiac Medical History: Reports: Coronary Artery Disease - ON MEDICATION FOR CHOLESTEROL, DVT, Myocardial Infarction, Hyperlipidema, Hypertension, Pulmonary Embolism Pulmonary Medical History: Denies: Asthma, Bronchitis, Chronic Obstructive Pulmonary Disease (COPD), Pneumonia EENT Medical History: Reports: None Neurological Medical History: Denies: Multiple Sclerosis, Seizures Endocrine Medical History: Denies: Diabetes Mellitus Type 1, Diabetes Mellitus Type 2, Hyperthyroidism, Hypothyroidism Renal/ Medical History: Denies: Chronic Kidney Disease, Nephrolithiasis Malignancy Medical History: Reports: None GI Medical History: Denies: Cirrhosis, Hepatitis Musculoskeltal Medical History: Reports: Arthritis - RHEUMATOID Denies: Gout Skin Medical History: Denies: Eczema, Psoriasis Psychiatric Medical History: Reports: Other - Family reports intermittent episodes of nocturnal confusion Denies: Alcohol Dependency, Substance Abuse, Tobacco Dependency Hematology: Denies: Anemia Past Surgical History Past Surgical History: Reports: Coronary Artery Bypass Graft Social History Information Source: Patient Smoking Status: Never Smoker Frequency of Alcohol Use: None Hx Recreational Drug Use: No Drugs: None Hx Prescription Drug Abuse: No - Advance Directive Resuscitation Status: Do Not Resuscitate Family History Family History: CAD Parental Family History Reviewed: Yes Children Family History Reviewed: Yes Sibling(s) Family History Reviewed.: Yes Medication/Allergy Home Medications: Acetaminophen [Tylenol Arthritis 650 mg Tablet] 1,300 mg PO QAM 08/10/17 Acetaminophen [Tylenol Arthritis 650 mg Tablet] 650 mg PO QHS 08/10/17 Amlodipine Besylate [Norvasc 10 mg Tablet] 10 mg PO DAILY 08/10/17 Aspirin [Aspirin EC] 81 mg PO DAILY 08/10/17 Cholecalciferol (Vitamin D3) [Vitamin D3 1000 Unit Tablet] 1,000 unit PO DAILY 08/10/17 Diclofenac Sodium [Voltaren] 1 applic TP [facility] 08/10/17 Hydrochlorothiazide [Hydrodiuril 25 mg Tablet] 25 mg PO DAILY 08/10/17 Isosorbide Mononitrate [Isosorbide Mononitrate ER] 30 mg PO DAILY 08/10/17 Metoprolol Tartrate [Lopressor 50 mg Tablet] 50 mg PO Q12 08/10/17 Mirtazapine 7.5 mg PO QHS 08/10/17 Ramipril [Altace 10 mg Capsule] 10 mg PO Q12 08/10/17 Simvastatin [Zocor 40 mg Tablet] 40 mg PO QHS 08/10/17 Tramadol HCl [Ultram 50 mg Tablet] 100 mg PO [facility] 08/10/17 Apixaban [Eliquis 5 mg Tablet] 5 mg PO BID #60 tablet 08/11/17 Oxycodone HCl/Acetaminophen [Percocet 5-325 mg Tablet] 1 tab PO Q4HP PRN #10 tablet 08/11/17 Allergies/Adverse Reactions: No Known Allergies Allergy (Verified 08/10/17 10:33) Review of Systems Constitutional: PRESENT: fatigue. ABSENT: chills, fever(s), headache(s) Eyes: PRESENT: as per HPI, visual disturbances. ABSENT: other - Ocular pain Ears: PRESENT: other - Ear pain. ABSENT: hearing changes Nose, Mouth, and Throat: ABSENT: mouth pain, sore throat Cardiovascular: PRESENT: as per HPI, dyspnea on exertion. ABSENT: chest pain, edema, orthropnea, palpitations Respiratory: PRESENT: as per HPI, cough, dyspnea. ABSENT: hemoptysis Gastrointestinal: ABSENT: abdominal pain, constipation, diarrhea, hematochezia, melena, nausea, vomiting Genitourinary: ABSENT: dysuria, hematuria Musculoskeletal: ABSENT: back pain, joint swelling Integumentary: ABSENT: pruritus, rash Neurological: PRESENT: confusion - Episodic nocturnal confusion reported by family members not by the patient. Each single episode occurs every 2-3 months and generally involves her hallucinating (both auditory and visual) [place] persons dancing and participating in a luau taking place in her backyard.. ABSENT: convulsions, focal weakness, syncope Psychiatric: ABSENT: anxiety, depression Endocrine: ABSENT: cold intolerance, heat intolerance Hematologic/Lymphatic: PRESENT: as per HPI, easy bleeding - On chronic anticoagulant therapy with Eliquis, easy bruising - On chronic anticoagulant therapy with Eliquis Allergic/Immunologic: ABSENT: seasonal rhinorrhea, other - Insect bite allergies Physical Exam Vital Signs: Temp Pulse Resp BP Pulse Ox 97.5 F 61 16 118/56 L 100 10/01/18 17:50 10/01/18 17:50 10/01/18 18:00 10/01/18 17:50 10/01/18 17:50 General appearance: PRESENT: no acute distress, cooperative, morbidly obese Head exam: PRESENT: atraumatic, normocephalic Eye exam: PRESENT: conjunctiva pale, EOMI. ABSENT: periorbital swelling, scleral icterus Ear exam: PRESENT: normal external ear exam. ABSENT: bleeding, drainage Mouth exam: PRESENT: neck supple, tongue midline Neck exam: ABSENT: JVD, thyromegaly, tracheal deviation Respiratory exam: PRESENT: clear to auscultation paco, symmetrical, unlabored Cardiovascular exam: PRESENT: RRR. ABSENT: clicks, diastolic murmur, gallop, rubs, systolic murmur Pulses: PRESENT: normal radial pulses, normal dorsalis pedis pul Vascular exam: PRESENT: normal capillary refill, pallor GI/Abdominal exam: PRESENT: normal bowel sounds, soft. ABSENT: tenderness Rectal exam: PRESENT: deferred Extremities exam: ABSENT: calf tenderness, clubbing, pedal edema Musculoskeletal exam: PRESENT: other - Mild degenerative changes of multiple joints involving the hands wrists and large joints of all of the extremities.. ABSENT: deformity, dislocation Neurological exam: PRESENT: alert, oriented to person, oriented to place, oriented to time, oriented to situation, CN II-XII grossly intact. ABSENT: motor sensory deficit Psychiatric exam: PRESENT: appropriate affect, normal mood Skin exam: PRESENT: other - Large ecchymotic areas of various ages/stages are present on the right upper extremity both in the forearm and the upper arm.. ABSENT: jaundice, rash, urticaria Results Impressions: Chest X-Ray 10/01/18 14:54 IMPRESSION: NO ACUTE FINDINGS. Venous Doppler Study 10/01/18 15:08 IMPRESSION: NO EVIDENCE DVT OR SVT IN EITHER LEG. Assessment & Plan - Diagnosis (1) Anemia Qualifiers: Anemia type: other cause Other causes of anemia: acute posthemorrhagic Qualified Code(s): D62 - Acute posthemorrhagic anemia Is this a current diagnosis for this admission?: Yes Plan: The patient will be transfused with 2 units of packed red blood cells and her hemoglobin will be monitored on a daily basis. Further transfusions will be administered as needed. A surgical consultation will be obtained to evaluate her GI tract for possible bleeding sites. Since patient has no obvious bleeding site externally it is most likely that she has a gastrointestinal loss of blood that was rather abrupt approximately 4 days ago when her symptoms began. Dr. Jerez will be consulted for surgical evaluation with colonoscopy and EGD. (2) Personal history of pulmonary embolism Is this a current diagnosis for this admission?: Yes Plan: She has been on a post pulmonary embolism protocol utilizing Eliquis 5 mg twice daily. This will be held until her GI tract can be evaluated for source of bleeding. (3) Anticoagulant long-term use Is this a current diagnosis for this admission?: Yes Plan: Patient has been on Eliquis for more than a year following her pulmonary embolism. This will be held at the present time and restarted only after an evaluation of her GI tract for bleeding. (4) Coronary artery disease Qualifiers: Coronary Disease-Associated Artery/Lesion type: [place] artery Associated angina: angina presence unspecified Is this a current diagnosis for this admission?: Yes Plan: Patient is currently asymptomatic but significant anemia may easily result in coronary ischemia and/or cardiac injury. She will be closely observed and monitored with telemetry. (5) Hyperlipidemia Is this a current diagnosis for this admission?: Yes Plan: Patient has chronic hyperlipidemia and will be continued on her current medical regiment. A lipid profile will be obtained to assess therapy. (6) Hypertension Is this a current diagnosis for this admission?: Yes Plan: Patient has chronic hypertension, at the present time her blood pressure is well controlled but in view of her anemia I will hold her antihypertensive medications until after she has received transfusions and her blood pressure has risen to a level requiring continued use of antihypertensive medications. (7) Osteoarthritis Qualifiers: Osteoarthritis location: unspecified site Osteoarthritis type: unspecified Qualified Code(s): M19.90 - Unspecified osteoarthritis, unspecified site Is this a current diagnosis for this admission?: Yes Plan: Patient has chronic arthritis and has numerous medications on her medicine list for this. I will continue her tramadol and acetaminophen can be given as needed at the present time. I will wait for verification of her exact medications but I am disinclined to start the patient back on a nonsteroidal anti-inflammatory drug and I would like to avoid use of opiates if possible. - Time Time Spent: 50 to 70 Minutes
[2018-10-01] MEDS: MIRTAZAPINE 15 MG TABLET PO SCH (21:16)
[2018-10-01] MEDS ORDERED: SIMVASTATIN 40 MG TABLET PO SCH (22:00)
--- NOTE | 2018-10-01 22:02 | EKG REPORT ---
SEVERITY:- ABNORMAL ECG - SINUS RHYTHM NONSPECIFIC INTRAVENTRICULAR CONDUCTION DELAY PROBABLE INFERIOR INFARCT, AGE INDETERMINATE : Confirmed by: Alpa Gallagher MD 01-Oct-2018 22:01:10
[2018-10-02 05:16] LABS: MEAN CORPUSCULAR HEMOGLOBIN 33.5 pg (27.0-33.4); MEAN CORPUSCULAR HGB CONC 34.1 g/dL (32.0-36.0); PLATELET COUNT 264 10^3/uL (150-450); RED BLOOD COUNT 2.45 10^6/uL (3.72-5.28); RED CELL DISTRIBUTION WIDTH 19.3 % (11.5-14.0); WHITE BLOOD COUNT 6.5 10^3/uL (4.0-10.5)
[2018-10-02 05:18] LABS: ANION GAP 12 (5-19); BLOOD UREA NITROGEN 42 mg/dL (7-20); CALCIUM 8.8 mg/dL (8.4-10.2); CARBON DIOXIDE 16 mmol/L (22-30); CHLORIDE 115 mmol/L (98-107); CHOLESTEROL 90.91 mg/dL (0-200); GLUCOSE 97 mg/dL (75-110); POTASSIUM 4.2 mmol/L (3.6-5.0); SODIUM 143.2 mmol/L (137-145); TRIGLYCERIDES 194 mg/dL (<150)
[2018-10-02 05:21] LABS: HEMOGLOBIN 8.2 g/dL (12.0-15.5); MEAN CORPUSCULAR VOLUME 98 fl (80-97)
[2018-10-02 05:29] LABS: DIRECT LDL 50 mg/dL (<100)
[2018-10-02 05:32] LABS: VLDL CHOLESTEROL 38.8 mg/dL (10-31)
[2018-10-02] MEDS: LANSOPRAZOLE 30 MG TAB.RAP.DR PO SCH ×2 (05:40→17:39)
[2018-10-02 06:09] LABS: FREE T3 3.44 pg/mL (2.77-5.27); FREE T4 (FREE THYROXINE) 1.67 ng/dL (0.78-2.19)
[2018-10-02 06:22] LABS: THYROID STIMULATING HORMONE 2.35 uIU/mL (0.47-4.68)
[2018-10-02] MEDS: CHOLECALCIFEROL (D3) 1,000 UNIT TABLET PO SCH (09:15)
[2018-10-02] MEDS: TRAMADOL HCL 50 MG TABLET PO SCH (09:15)
[2018-10-02] MEDS: DOCUSATE SODIUM 100 MG CAPSULE PO SCH ×2 (09:15→17:39)
--- NOTE | 2018-10-02 11:10 | PDOC CONSULTATION ---
Consultation Consult Date: 10/02/18 Consult reason:: anemia History of Present Illness Admission Date/PCP: 10/01/18 18:11 Patient complains of: dyspnea and weakness History of Present Illness: SARBJIT BECERRIL is a 78 year old female who has history of hypertension and DVT and PE on Eloquis which she last took yesterday am. Noted hemoglobin of 5.6. Stool was positive for guiac. No hemoptysis or gross bllod in the stool according to the patient. She had colonoscopy about 5 years ago which was reported to be normal per patient. Past Medical History Cardiac Medical History: Reports: Coronary Artery Disease - ON MEDICATION FOR CHOLESTEROL, DVT, Myocardial Infarction, Hyperlipidema, Hypertension, Pulmonary Embolism Pulmonary Medical History: Denies: Asthma, Bronchitis, Chronic Obstructive Pulmonary Disease (COPD), Pneumonia EENT Medical History: Reports: None Neurological Medical History: Denies: Multiple Sclerosis, Seizures Endocrine Medical History: Denies: Diabetes Mellitus Type 1, Diabetes Mellitus Type 2, Hyperthyroidism, Hypothyroidism Renal/ Medical History: Denies: Chronic Kidney Disease, Nephrolithiasis Malignancy Medical History: Reports: None GI Medical History: Denies: Cirrhosis, Hepatitis Musculoskeltal Medical History: Reports: Arthritis - RHEUMATOID Denies: Gout Skin Medical History: Denies: Eczema, Psoriasis Psychiatric Medical History: Reports: Other - Family reports intermittent episodes of nocturnal confusion Denies: Alcohol Dependency, Depression, Substance Abuse, Tobacco Dependency Hematology: Denies: Anemia Past Surgical History Past Surgical History: Reports: Coronary Artery Bypass Graft Social History Smoking Status: Never Smoker Frequency of Alcohol Use: None Hx Recreational Drug Use: No Drugs: None Hx Prescription Drug Abuse: No - Advance Directive Resuscitation Status: Do Not Resuscitate Family History Family History: CAD Parental Family History Reviewed: No Children Family History Reviewed: Yes - all three sons with DM Sibling(s) Family History Reviewed.: No Medication/Allergy Home Medications: Acetaminophen [Tylenol Arthritis 650 mg Tablet] 1,300 mg PO Q12 08/10/17 Amlodipine Besylate [Norvasc 10 mg Tablet] 10 mg PO DAILY 08/10/17 Aspirin [Aspirin EC] 81 mg PO DAILY 08/10/17 Cholecalciferol (Vitamin D3) [Vitamin D3 1000 Unit Tablet] 1,000 unit PO DAILY 08/10/17 Isosorbide Mononitrate [Isosorbide Mononitrate ER] 30 mg PO DAILY 08/10/17 Metoprolol Tartrate [Lopressor 50 mg Tablet] 50 mg PO Q12 08/10/17 Mirtazapine 7.5 mg PO QHS 08/10/17 Ramipril [Altace 10 mg Capsule] 10 mg PO Q12 08/10/17 Simvastatin [Zocor 40 mg Tablet] 40 mg PO QHS 08/10/17 Tramadol HCl [Ultram 50 mg Tablet] 100 mg PO Q12 08/10/17 Apixaban [Eliquis 5 mg Tablet] 5 mg PO BID #60 tablet 08/11/17 Docusate Sodium [Colace 100 mg Capsule] 100 mg PO DAILY 10/02/18 Allergies/Adverse Reactions: No Known Allergies Allergy (Verified 08/10/17 10:33) Review of Systems Constitutional: PRESENT: other - no chills/fever Eyes: PRESENT: other - no visual/hearing changes Nose, Mouth, and Throat: PRESENT: other - no headache Cardiovascular: PRESENT: other - no chest pains/cough Gastrointestinal: PRESENT: constipation, other - no abdominal pains Genitourinary: PRESENT: other - no dysuria Neurological: PRESENT: weakness Physical Exam Vital Signs: Temp Pulse Resp BP Pulse Ox 98.5 F 78 15 116/64 99 10/02/18 03:34 10/02/18 07:00 10/02/18 03:34 10/02/18 03:34 10/02/18 03:34 Intake & Output 10/01/18 10/02/18 10/03/18 07:59 06:59 06:59 Intake Total Balance Weight General appearance: PRESENT: no acute distress Head exam: PRESENT: atraumatic Eye exam: PRESENT: conjunctiva pale Mouth exam: PRESENT: moist Neck exam: PRESENT: full ROM Respiratory exam: PRESENT: clear to auscultation paco Cardiovascular exam: PRESENT: RRR Pulses: PRESENT: normal radial pulses Vascular exam: PRESENT: normal capillary refill GI/Abdominal exam: PRESENT: soft Rectal exam: PRESENT: deferred Extremities exam: PRESENT: tenderness - right knee Musculoskeletal exam: PRESENT: ambulatory Neurological exam: PRESENT: alert, oriented to person, oriented to place, oriented to time, oriented to situation Psychiatric exam: PRESENT: appropriate affect Skin exam: PRESENT: normal color, warm Results Laboratory Results: 10/02/18 04:46 10/02/18 04:46 10/02/18 10/02/18 10/02/18 04:46 04:46 04:46 WBC 6.5 RBC 2.45 L Hgb 8.2 L D Hct 24.0 L MCV 98 H D MCH 33.5 H MCHC 34.1 RDW 19.3 H Plt Count 264 Sodium 143.2 Potassium 4.2 Chloride 115 H Carbon Dioxide 16 L Anion Gap 12 BUN 42 H Creatinine 1.11 Est GFR ( Amer) 57 L Est GFR (Non-Af Amer) 47 L Glucose 97 Calcium 8.8 Magnesium 1.7 Triglycerides 194 H Cholesterol 90.91 LDL Cholesterol Direct 50 VLDL Cholesterol 38.8 H HDL Cholesterol 25 L TSH 2.35 Free T4 1.67 Free T3 pg/mL 3.44 Impressions: Chest X-Ray 10/01/18 14:54 IMPRESSION: NO ACUTE FINDINGS. Venous Doppler Study 10/01/18 15:08 IMPRESSION: NO EVIDENCE DVT OR SVT IN EITHER LEG. Assessment & Plan - Diagnosis (1) Anemia Qualifiers: Anemia type: other cause Other causes of anemia: acute posthemorrhagic Qualified Code(s): D62 - Acute posthemorrhagic anemia Is this a current diagnosis for this admission?: Yes (2) Anticoagulant long-term use Is this a current diagnosis for this admission?: Yes (3) Dyspnea Is this a current diagnosis for this admission?: Yes (4) Personal history of pulmonary embolism Is this a current diagnosis for this admission?: Yes - Time Time Spent: 30 to 50 Minutes - Inpatient Certification Medical Necessity: Need For IV Fluids, Need for Surgery, Risk of Complication if Not Cared For in Hospital - Plan Summary Plan Summary: For colonoscopy tomorrow c/o Dr Cid. Bowel prep today PT/INR and repeat CBC in am
--- NOTE | 2018-10-02 12:48 | PDOC PROGRESS REPORT ---
Subjective Progress Note for:: 10/02/18 Subjective:: 10/01/18: SARBJIT OHARA is a 78 year old female who presented to the emergency room with a complaint of worsened dyspnea for the last 3-4 days. She admits that she has had worse than her normal level of dyspnea present for 3-4 days, was of rather abrupt onset and has been continuous since it began. She describes the dyspnea as moderate to severe and has noted that it is significantly worsened with activity or exertion and is somewhat relieved by rest. She has not identified any other aggravating or ameliorating factors for her dyspnea. She admits to one prior episode of similar symptoms that occurred when she had a heart attack many years ago. She does admit that she is taking Eliquis twice daily for treatment of a pulmonary embolism a little more than a year ago. She denies chest pain, palpitations, orthopnea, syncope, fever, chills, swelling of her extremities, nausea, vomiting, diarrhea, dysuria, hematuria, melena, hematochezia, epistaxis, pharyngitis, headache and rash. She does admit that she has a mild cough at times when she assumes a recumbent position and earlier on the day of admission she noticed some blurriness and flashing lights in the vision of both of her eyes that resolved spontaneously and is no longer present. In the emergency room she was found to have a hemoglobin of 5.6 and as such she was admitted to the hospitalist service for further evaluation and treatment. 10/02/18: Ms. Ohara is feeling considerably better today after receiving 2 units of packed red blood cells in transfusion overnight. Her hemoglobin has risen to 8.2 and her vital signs have remained stable. We have reviewed her laboratory work and inform her that her lipid profile shows an excellent total cholesterol and LDL cholesterol level with a slightly low HDL level and moderate elevation of her triglycerides and VLDL. This would essentially reveal that the patient has a hypertriglyceridemia. Additionally her TSH was normal and her other laboratory values obtained today were essentially unremarkable/unchanged from prior baseline levels. Dr. Jerez will be seeing her for her surgical evaluation a little bit later this morning and I would anticipate that she will have a bowel prep today and a colonoscopy and EGD done tomorrow. I have discussed with Dr. Jerez that it would be best for this patient's overall health if the anesthesia provided could be conscious sedation versus a general anesthetic. Patient is also aware of this and actually informed me that she was told by her digitizer operator "to never have a general anesthetic unless it was a life or situation". Plans for disposition are pending the results of her GI workup. Reason For Visit: SEVERE ANEMIA Physical Exam Vital Signs: Temp Pulse Resp BP Pulse Ox 97.9 F 86 17 116/64 96 10/02/18 08:08 10/02/18 08:08 10/02/18 08:08 10/02/18 03:34 10/02/18 08:08 Intake & Output 09/30/18 10/01/18 10/02/18 23:59 23:59 22:59 Intake Total 300 320 Balance 300 320 Weight 85 kg 85 kg General appearance: PRESENT: no acute distress, cooperative Head exam: PRESENT: atraumatic, normocephalic Eye exam: PRESENT: conjunctiva pink, EOMI Ear exam: PRESENT: normal external ear exam. ABSENT: drainage Mouth exam: PRESENT: moist, neck supple Neck exam: ABSENT: JVD, tracheal deviation Respiratory exam: PRESENT: clear to auscultation paco, symmetrical, unlabored Cardiovascular exam: PRESENT: RRR. ABSENT: clicks, diastolic murmur, gallop, rubs, systolic murmur Vascular exam: PRESENT: normal capillary refill. ABSENT: pallor GI/Abdominal exam: PRESENT: normal bowel sounds, soft Rectal exam: PRESENT: deferred Extremities exam: ABSENT: joint swelling, pedal edema, tenderness Musculoskeletal exam: ABSENT: deformity, dislocation, tenderness Neurological exam: PRESENT: alert, oriented to person, oriented to place, oriented to time, oriented to situation, CN II-XII grossly intact. ABSENT: motor sensory deficit Psychiatric exam: PRESENT: appropriate affect, normal mood Skin exam: PRESENT: dry, warm. ABSENT: jaundice, rash, urticaria Results Laboratory Results: 10/02/18 04:46 10/02/18 04:46 10/02/18 10/02/18 10/02/18 04:46 04:46 04:46 WBC 6.5 RBC 2.45 L Hgb 8.2 L D Hct 24.0 L MCV 98 H D MCH 33.5 H MCHC 34.1 RDW 19.3 H Plt Count 264 Sodium 143.2 Potassium 4.2 Chloride 115 H Carbon Dioxide 16 L Anion Gap 12 BUN 42 H Creatinine 1.11 Est GFR ( Amer) 57 L Est GFR (Non-Af Amer) 47 L Glucose 97 Calcium 8.8 Magnesium 1.7 Triglycerides 194 H Cholesterol 90.91 LDL Cholesterol Direct 50 VLDL Cholesterol 38.8 H HDL Cholesterol 25 L TSH 2.35 Free T4 1.67 Free T3 pg/mL 3.44 Impressions: Chest X-Ray 10/01/18 14:54 IMPRESSION: NO ACUTE FINDINGS. Venous Doppler Study 10/01/18 15:08 IMPRESSION: NO EVIDENCE DVT OR SVT IN EITHER LEG. Assessment & Plan - Diagnosis (1) Anemia Qualifiers: Anemia type: other cause Other causes of anemia: acute posthemorrhagic Qualified Code(s): D62 - Acute posthemorrhagic anemia Is this a current diagnosis for this admission?: Yes Plan: The patient will be transfused with 2 units of packed red blood cells and her hemoglobin will be monitored on a daily basis. Further transfusions will be administered as needed. A surgical consultation will be obtained to evaluate her GI tract for possible bleeding sites. Since patient has no obvious bleeding site externally it is most likely that she has a gastrointestinal loss of blood that was rather abrupt approximately 4 days ago when her symptoms began. Dr. Jerez will be consulted for surgical evaluation with colonoscopy and EGD. (2) Personal history of pulmonary embolism Is this a current diagnosis for this admission?: Yes Plan: She has been on a post pulmonary embolism protocol utilizing Eliquis 5 mg twice daily. This will be held until her GI tract can be evaluated for source of bleeding. Should her Eliquis be resumed I would plan to resume it at 2.5 mg twice daily given her age and the occurrence of probable GI bleeding with or without an identified site would seem to affect the risk benefit ratio for treating her with the higher dose of Eliquis or perhaps for treating her with Eliquis at any dosage. (3) Anticoagulant long-term use Is this a current diagnosis for this admission?: Yes Plan: Patient has been on Eliquis for more than a year following her pulmonary embolism. This will be held at the present time and restarted only after an evaluation of her GI tract for bleeding. Again the dosage of Eliquis that should be used is somewhat debatable given her probable GI blood loss and her age, a serious risk benefit analysis for continued treatment must be made. I currently leaning towards continuing the patient on Eliquis but at 2.5 mg twice daily instead of the higher dose. (4) Coronary artery disease Qualifiers: Coronary Disease-Associated Artery/Lesion type: [place] artery Associated angina: angina presence unspecified Is this a current diagnosis for this admission?: Yes Plan: Patient is currently asymptomatic but significant anemia may easily result in coronary ischemia and/or cardiac injury. She will be closely observed and monitored with telemetry. (5) Hyperlipidemia Is this a current diagnosis for this admission?: Yes Plan: Patient has chronic hyperlipidemia and will be continued on her current medical regiment. A lipid profile was obtained to assess therapy. Patient was found to have hypertriglyceridemia with very low levels of total cholesterol and LDL cholesterol. HDL cholesterol was noted to be somewhat low and her VLDL cholesterol and triglycerides were mildly to moderately elevated. With these findings the patient's Zocor will be decreased to 20 mg daily at this time and on discharge. Further evaluation and treatment of her hyperlipidemia will be done in her follow-up with her primary care provider or digitizer operator. (6) Hypertension Is this a current diagnosis for this admission?: Yes Plan: Patient has chronic hypertension, at the present time her blood pressure is well controlled but in view of her anemia I will hold her antihypertensive medications until after she has received transfusions and her blood pressure has risen to a level requiring continued use of antihypertensive medications. (7) Osteoarthritis Qualifiers: Osteoarthritis location: unspecified site Osteoarthritis type: unspecified Qualified Code(s): M19.90 - Unspecified osteoarthritis, unspecified site Is this a current diagnosis for this admission?: Yes Plan: Patient has chronic arthritis and has numerous medications on her medicine list for this. I will continue her tramadol and acetaminophen can be given as needed at the present time. I will wait for verification of her exact medications but I am disinclined to start the patient back on a nonsteroidal anti-inflammatory drug and I would like to avoid use of opiates if possible. - Time Time Spent with patient: 15-24 minutes Medications reviewed and adjusted accordingly: Yes Anticipated discharge: Home
[2018-10-02] MEDS ORDERED: PEG 3350/NA SULF,BICARB,CL/KCL 4000 ML PO ONE (15:30)
[2018-10-02] MEDS: MIRTAZAPINE 15 MG TABLET PO SCH (21:50)
[2018-10-02] MEDS: SIMVASTATIN 40 MG TABLET PO SCH (21:51)
[2018-10-03] MEDS: LANSOPRAZOLE 30 MG TAB.RAP.DR PO SCH ×2 (05:09→17:21)
[2018-10-03 06:36] LABS: MEAN CORPUSCULAR HEMOGLOBIN 33.9 pg (27.0-33.4); MEAN CORPUSCULAR HGB CONC 34.3 g/dL (32.0-36.0); MEAN CORPUSCULAR VOLUME 99 fl (80-97); PLATELET COUNT 259 10^3/uL (150-450); RED BLOOD COUNT 2.03 10^6/uL (3.72-5.28); RED CELL DISTRIBUTION WIDTH 19.4 % (11.5-14.0); WHITE BLOOD COUNT 4.7 10^3/uL (4.0-10.5)
[2018-10-03 06:43] LABS: HEMOGLOBIN 6.9 g/dL (12.0-15.5)
[2018-10-03 06:44] LABS: INTERNATIONAL RATION (INR) 1.21
[2018-10-03 06:53] LABS: ANION GAP 12 (5-19); BLOOD UREA NITROGEN 38 mg/dL (7-20); CALCIUM 8.7 mg/dL (8.4-10.2); CARBON DIOXIDE 18 mmol/L (22-30); CHLORIDE 111 mmol/L (98-107); GLUCOSE 77 mg/dL (75-110); POTASSIUM 4.4 mmol/L (3.6-5.0); SODIUM 141.1 mmol/L (137-145)
[2018-10-03] MEDS ORDERED: ACETAMINOPHEN 650 MG SUPP.RECT PR PRN (07:35)
[2018-10-03] MEDS ORDERED: ONDANSETRON HCL INJ/PF 4 MG/2 ML SDV IV PRN (08:00)
[2018-10-03] MEDS ORDERED: ONDANSETRON 4 MG TAB.RAPDIS PO PRN (08:00)
--- NOTE | 2018-10-03 09:49 | PDOC PROGRESS REPORT ---
Subjective Progress Note for:: 10/03/18 Subjective:: patient reports hematochetia during the bowel prep last night Reason For Visit: SEVERE ANEMIA Physical Exam Vital Signs: Temp Pulse Resp BP Pulse Ox 98.4 F 100 16 142/50 H 99 10/03/18 08:17 10/03/18 08:17 10/03/18 08:17 10/03/18 08:17 10/03/18 08:17 Intake & Output 10/02/18 10/03/18 10/04/18 06:59 06:59 06:59 Intake Total Balance Weight 87.8 kg General appearance: PRESENT: no acute distress, other - pale Respiratory exam: PRESENT: clear to auscultation paco Cardiovascular exam: PRESENT: RRR GI/Abdominal exam: PRESENT: soft Results Laboratory Results: 10/03/18 05:12 10/03/18 05:12 10/03/18 10/03/18 05:12 05:12 WBC 4.7 RBC 2.03 L Hgb 6.9 L Hct 20.0 L MCV 99 H MCH 33.9 H MCHC 34.3 RDW 19.4 H Plt Count 259 Sodium 141.1 Potassium 4.4 Chloride 111 H Carbon Dioxide 18 L Anion Gap 12 BUN 38 H Creatinine 1.11 Est GFR ( Amer) 57 L Est GFR (Non-Af Amer) 47 L Glucose 77 Calcium 8.7 Magnesium 1.5 L Impressions: Chest X-Ray 10/01/18 14:54 IMPRESSION: NO ACUTE FINDINGS. Venous Doppler Study 10/01/18 15:08 IMPRESSION: NO EVIDENCE DVT OR SVT IN EITHER LEG. Assessment & Plan - Diagnosis (1) Anemia Qualifiers: Anemia type: other cause Other causes of anemia: acute posthemorrhagic Qualified Code(s): D62 - Acute posthemorrhagic anemia Is this a current diagnosis for this admission?: Yes (2) Anticoagulant long-term use Is this a current diagnosis for this admission?: Yes (3) Hematochezia Is this a current diagnosis for this admission?: Yes - Plan Summary Plan Summary: A/ Anemia, lower gastrointestinal bleeding of unknown origin Hematochetia during bowel prep last night H/H dropped to 6.9 and 20 today from 8.2 and 24 yesterday P/ Administer 1 unit of PRBC today check H/H 1 hr after transfusion I will proceed with EGD and colonoscopy under IV sedation after the blood transfusion IVF after transfusion Procedure, risks, benefits, complications explained to the patient, she understands all the above, and she decides to proceed
[2018-10-03] MEDS: DOCUSATE SODIUM 100 MG CAPSULE PO SCH ×2 (12:17→17:21)
[2018-10-03] MEDS: TRAMADOL HCL 50 MG TABLET PO SCH (13:06)
[2018-10-03 13:07] LABS: ABSOLUTE BASOPHILS # (AUTO) 0.1 10^3/uL (0.0-0.2); ABSOLUTE EOSINOPHILS # (AUTO) 0.3 10^3/uL (0.0-0.6); ABSOLUTE LYMPHOCYTES (AUTO) 1.6 10^3/uL (0.5-4.7); ABSOLUTE MONOCYTES (AUTO) 0.6 10^3/uL (0.1-1.4); ABSOLUTE NEUT (AUTO) 3.2 10^3/uL (1.7-8.2); EOSINOPHILS % (AUTO) 5.9 % (0-6); HEMATOCRIT 24.5 % (36.0-47.0); HEMOGLOBIN 8.4 g/dL (12.0-15.5); LYMPHOCYTES % (AUTO) 27.5 % (13-45); MEAN CORPUSCULAR HEMOGLOBIN 32.7 pg (27.0-33.4); MEAN CORPUSCULAR HGB CONC 34.4 g/dL (32.0-36.0); MONOCYTES % (AUTO) 10.1 % (3-13); PLATELET COUNT 259 10^3/uL (150-450); RED BLOOD COUNT 2.58 10^6/uL (3.72-5.28); RED CELL DISTRIBUTION WIDTH 20.3 % (11.5-14.0); SEGMENTED NEUTROPHILS % (AUTO) 55.5 % (42-78); TOTAL CELLS COUNTED % (AUTO) 100 %; WHITE BLOOD COUNT 5.7 10^3/uL (4.0-10.5)
[2018-10-03 13:08] LABS: MEAN CORPUSCULAR VOLUME 95 fl (80-97)
[2018-10-03] MEDS ORDERED: ONDANSETRON HCL INJ/PF 4 MG/2 ML SDV ONE (13:29)
[2018-10-03] MEDS ORDERED: FLUMAZENIL INJ 0.5 MG/5 ML VIAL ONE (13:31)
[2018-10-03] MEDS ORDERED: EPINEPHRINE INJ 1 MG/10 ML DISP.SYRIN ONE (13:31)
[2018-10-03] MEDS ORDERED: GLUCAGON,HUMAN RECOMB 1 MG INJ ONE (13:31)
[2018-10-03] MEDS ORDERED: FENTANYL CITRATE INJ/PF 100 MCG/2 ML AMPUL ONE (13:31)
[2018-10-03] MEDS ORDERED: NALOXONE HCL INJ/PF 0.4 MG/1 ML SDV ONE (13:31)
[2018-10-03] MEDS ORDERED: MIDAZOLAM 2 MG/2 ML INJ ONE (13:31)
--- NOTE | 2018-10-03 14:46 | Operative Report ---
Nonrecallable Operative Report DATE OF SURGERY: 10/03/18 PREOPERATIVE DIAGNOSIS: Acute anemia. Gastrointestinal bleeding. Hematochetia. S/P CABG. S/P coronary artery stent POSTOPERATIVE DIAGNOSIS: Poor colonic preparation with large amount of fecal matter scattered throughout the colon. same. small hiatal hernia. mild duodenitis of the second portion of duodenum. Sigmoid diverticulosis OPERATION: EGD. Colonoscopy to cecum SURGEON: JENIFFER GONZALEZ 1ST KNITTER HAND: none ANESTHESIA: Moderate Sedation - Provided by Dr. Gonzalez (1.5 mg Versed IVP; 37.5 mcg Fentalyn IVP) TISSUE REMOVED OR ALTERED: n/a COMPLICATIONS: none ESTIMATED BLOOD LOSS: n/a INTRAOPERATIVE FINDINGS: EGD: small hiatal hernia, mild duodenitis 2nd portion of duodenum. Colonosocpy: extremely poor colonic prep, sigmopid diverticulosis , able to examine 70% of colonic mucosa PROCEDURE: see procedure dictation
--- NOTE | 2018-10-03 15:56 | PDOC PROGRESS REPORT ---
Subjective Progress Note for:: 10/03/18 Subjective:: 10/01/18: SARBJIT OHARA is a 78 year old female who presented to the emergency room with a complaint of worsened dyspnea for the last 3-4 days. She admits that she has had worse than her normal level of dyspnea present for 3-4 days, was of rather abrupt onset and has been continuous since it began. She describes the dyspnea as moderate to severe and has noted that it is significantly worsened with activity or exertion and is somewhat relieved by rest. She has not identified any other aggravating or ameliorating factors for her dyspnea. She admits to one prior episode of similar symptoms that occurred when she had a heart attack many years ago. She does admit that she is taking Eliquis twice daily for treatment of a pulmonary embolism a little more than a year ago. She denies chest pain, palpitations, orthopnea, syncope, fever, chills, swelling of her extremities, nausea, vomiting, diarrhea, dysuria, hematuria, melena, hematochezia, epistaxis, pharyngitis, headache and rash. She does admit that she has a mild cough at times when she assumes a recumbent position and earlier on the day of admission she noticed some blurriness and flashing lights in the vision of both of her eyes that resolved spontaneously and is no longer present. In the emergency room she was found to have a hemoglobin of 5.6 and as such she was admitted to the hospitalist service for further evaluation and treatment. 10/02/18: Ms. Ohara is feeling considerably better today after receiving 2 units of packed red blood cells in transfusion overnight. Her hemoglobin has risen to 8.2 and her vital signs have remained stable. We have reviewed her laboratory work and inform her that her lipid profile shows an excellent total cholesterol and LDL cholesterol level with a slightly low HDL level and moderate elevation of her triglycerides and VLDL. This would essentially reveal that the patient has a hypertriglyceridemia. Additionally her TSH was normal and her other laboratory values obtained today were essentially unremarkable/unchanged from prior baseline levels. Dr. Jerez will be seeing her for her surgical evaluation a little bit later this morning and I would anticipate that she will have a bowel prep today and a colonoscopy and EGD done tomorrow. I have discussed with Dr. Jerez that it would be best for this patient's overall health if the anesthesia provided could be conscious sedation versus a general anesthetic. Patient is also aware of this and actually informed me that she was told by her quality technician "to never have a general anesthetic unless it was a life or situation". Plans for disposition are pending the results of her GI workup. 10/03/18: Ms. Ohara had a drop in her hemoglobin to 6.8 overnight and was given a 1 unit transfusion of packed red blood cells prior to her GI evaluation today. She will have a colonoscopy and an EGD performed and the results will determine the treatment going forward. Patient was noted to have fairly bright red blood in her diarrhea last night during her GoLYTELY prep. I will await the patient' s surgical results which should be provided by Dr. Jerez or Dr. Cid. Reason For Visit: SEVERE ANEMIA Physical Exam Vital Signs: Temp Pulse Resp BP Pulse Ox 99.2 F 106 H 18 112/87 H 99 10/03/18 12:40 10/03/18 14:40 10/03/18 14:40 10/03/18 14:40 10/03/18 14:40 Intake & Output 10/02/18 10/02/18 10/03/18 00:59 23:59 23:59 Intake Total 1100 Balance 1100 Weight 87.8 kg General appearance: PRESENT: no acute distress, cooperative Head exam: PRESENT: atraumatic, normocephalic Eye exam: PRESENT: conjunctiva pale, EOMI Ear exam: PRESENT: normal external ear exam. ABSENT: bleeding Mouth exam: PRESENT: dry mucosa, neck supple Neck exam: ABSENT: JVD, tracheal deviation Respiratory exam: PRESENT: clear to auscultation paco, symmetrical, unlabored Cardiovascular exam: PRESENT: RRR. ABSENT: clicks, gallop, rubs Vascular exam: PRESENT: normal capillary refill, pallor GI/Abdominal exam: PRESENT: normal bowel sounds, soft Rectal exam: PRESENT: deferred Extremities exam: ABSENT: joint swelling, pedal edema, tenderness Musculoskeletal exam: ABSENT: deformity, dislocation Neurological exam: PRESENT: alert, oriented to person, oriented to place, oriented to time, oriented to situation, CN II-XII grossly intact. ABSENT: motor sensory deficit Psychiatric exam: PRESENT: appropriate affect, normal mood Skin exam: PRESENT: dry, warm. ABSENT: jaundice, rash, urticaria Results Laboratory Results: 10/03/18 12:55 10/03/18 05:12 10/03/18 10/03/18 10/03/18 05:12 05:12 12:55 WBC 4.7 5.7 RBC 2.03 L 2.58 L Hgb 6.9 L 8.4 L Hct 20.0 L 24.5 L MCV 99 H 95 D MCH 33.9 H 32.7 MCHC 34.3 34.4 RDW 19.4 H 20.3 H Plt Count 259 259 Seg Neutrophils % 55.5 Lymphocytes % 27.5 Monocytes % 10.1 Eosinophils % 5.9 Basophils % 1.0 Absolute Neutrophils 3.2 Absolute Lymphocytes 1.6 Absolute Monocytes 0.6 Absolute Eosinophils 0.3 Absolute Basophils 0.1 Sodium 141.1 Potassium 4.4 Chloride 111 H Carbon Dioxide 18 L Anion Gap 12 BUN 38 H Creatinine 1.11 Est GFR ( Amer) 57 L Est GFR (Non-Af Amer) 47 L Glucose 77 Calcium 8.7 Magnesium 1.5 L Impressions: Chest X-Ray 10/01/18 14:54 IMPRESSION: NO ACUTE FINDINGS. Venous Doppler Study 10/01/18 15:08 IMPRESSION: NO EVIDENCE DVT OR SVT IN EITHER LEG. Assessment & Plan - Diagnosis (1) Anemia Qualifiers: Anemia type: other cause Other causes of anemia: acute posthemorrhagic Qualified Code(s): D62 - Acute posthemorrhagic anemia Is this a current diagnosis for this admission?: Yes Plan: The patient will be transfused with 2 units of packed red blood cells and her hemoglobin will be monitored on a daily basis. Further transfusions will be administered as needed. A surgical consultation will be obtained to evaluate her GI tract for possible bleeding sites. Since patient has no obvious bleeding site externally it is most likely that she has a gastrointestinal loss of blood that was rather abrupt approximately 4 days ago when her symptoms began. Dr. Jerez will be consulted for surgical evaluation with colonoscopy and EGD. 10/03/18: Patient will undergo colonoscopy and EGD later today after she is received her 1 unit packed red blood cell transfusion. Her hemoglobin had dropped to 6.8 after being up to 8.2 posttransfusion yesterday. She did note fairly bright red blood in her diarrhea stool after beginning her GoLYTELY prep. (2) Personal history of pulmonary embolism Is this a current diagnosis for this admission?: Yes Plan: She has been on a post pulmonary embolism protocol utilizing Eliquis 5 mg twice daily. This will be held until her GI tract can be evaluated for source of bleeding. Should her Eliquis be resumed I would plan to resume it at 2.5 mg twice daily given her age and the occurrence of probable GI bleeding with or without an identified site would seem to affect the risk benefit ratio for treating her with the higher dose of Eliquis or perhaps for treating her with Eliquis at any dosage. (3) Anticoagulant long-term use Is this a current diagnosis for this admission?: Yes Plan: Patient has been on Eliquis for more than a year following her pulmonary embolism. This will be held at the present time and restarted only after an evaluation of her GI tract for bleeding. Again the dosage of Eliquis that should be used is somewhat debatable given her probable GI blood loss and her age, a serious risk benefit analysis for continued treatment must be made. I currently leaning towards continuing the patient on Eliquis but at 2.5 mg twice daily instead of the higher dose. (4) Coronary artery disease Qualifiers: Coronary Disease-Associated Artery/Lesion type: [place] artery Associated angina: angina presence unspecified Is this a current diagnosis for this admission?: Yes Plan: Patient is currently asymptomatic but significant anemia may easily result in coronary ischemia and/or cardiac injury. She will be closely observed and monitored with telemetry. (5) Hyperlipidemia Is this a current diagnosis for this admission?: Yes Plan: Patient has chronic hyperlipidemia and will be continued on her current medical regiment. A lipid profile was obtained to assess therapy. Patient was found to have hypertriglyceridemia with very low levels of total cholesterol and LDL cholesterol. HDL cholesterol was noted to be somewhat low and her VLDL cholesterol and triglycerides were mildly to moderately elevated. With these findings the patient's Zocor will be decreased to 20 mg daily at this time and on discharge. Further evaluation and treatment of her hyperlipidemia will be done in her follow-up with her primary care provider or quality technician. (6) Hypertension Is this a current diagnosis for this admission?: Yes Plan: Patient has chronic hypertension, at the present time her blood pressure is well controlled but in view of her anemia I will hold her antihypertensive medications until after she has received transfusions and her blood pressure has risen to a level requiring continued use of antihypertensive medications. (7) Osteoarthritis Qualifiers: Osteoarthritis location: unspecified site Osteoarthritis type: unspecified Qualified Code(s): M19.90 - Unspecified osteoarthritis, unspecified site Is this a current diagnosis for this admission?: Yes Plan: Patient has chronic arthritis and has numerous medications on her medicine list for this. I will continue her tramadol and acetaminophen can be given as needed at the present time. I will wait for verification of her exact medications but I am disinclined to start the patient back on a nonsteroidal anti-inflammatory drug and I would like to avoid use of opiates if possible. - Time Time Spent with patient: 15-24 minutes Anticipated discharge: Home
--- NOTE | 2018-10-03 16:16 | OPERATIVE REPORT E ---
Operative Report NAME: SARBJIT BECERRIL : 1940 AGE: 78Y DATE OF SURGERY: 10/03/2018 ROOM: 404 PREOPERATIVE DIAGNOSIS: 1. ACUTE ANEMIA. 2. GASTROINTESTINAL BLEEDING. POSTOPERATIVE DIAGNOSIS: 1. ACUTE ANEMIA. 2. GASTROINTESTINAL BLEEDING. 3. SMALL HIATAL HERNIA. 4. DUODENITIS, SECOND PORTION. 5. SIGMOID DIVERTICULOSIS. 6. POOR COLON PREP. OPERATION: 1. EGD. 2. Coloscopy to cecum. SURGEON: JENIFFER GONZALEZ M.D. BRAILLE TEACHER: None. BLEEDING: None. COMPLICATION: None. ANESTHESIA: IV sedation provided by Dr. Gonzalez, 37.5 mcg of Fentanyl and 1.5 mg of Versed, both IV push. FLUIDS: Unavailable. INDICATION AND FINDINGS: An 78-year-old female who has a history of coronary artery disease, CABG, stent placement on Eliquis who presented to the hospital with a low hemoglobin and hematocrit of 5.6 and 17.1 respectively. The patient underwent transfusion of 2 units of blood with improving hemoglobin to 8.2 and 24. This morning hemoglobin was 6.9 and 20. She received 1 additional unit of blood which brought the hemoglobin and hematocrit to 8.4 and 24.5. The decision was made to perform an EGD and colonoscopy to find the source of the bleeding. Procedures, benefits, and complications explained to the patient. At this time she understands and decides to proceed. PROCEDURE: It was done in the procedure room. The patient was placed in a lateral decubitus. Anesthesia was provided as above. The upper endoscope was inserted through the mouth, esophagus, stomach, and duodenum. Preparation was good. No masses, polyps, strictures, indentations were identified. A small amount of inflammatory changes were seen in the second portion of the duodenum. The instrument was then withdrawn into the stomach and lesser curvature and the fundus appeared to be within normal limit. The instrument was then retroflexed. A small hiatal hernia was noted but no evidence of ulcerations were seen along the lesser and greater curvature or the fundus of the stomach. The instrument was then slowly withdrawn into the esophagus and removed through the patient's mouth. The colonoscopy was then performed by inserting a colonoscope from the rectum to the ascending colon up to the cecum. The preparation was very poor. There was large amount of fecal matter throughout the entire colon, however, diffuse sigmoid diverticulosis was seen and no lesions were identified. The instrument was then slowly withdrawn and removed from the patient's rectum. The patient tolerated the procedure well and was transferred to the recovery room in satisfactory condition. A new colonoscopy will be planned for tomorrow. DICTATING PHYSICIAN: JENIFFER GONZALEZ M.D. [id number] PHY#: [id number] ID: [id number] JOB#: [id number] ACCT: [id number] cc:JENIFFER GONZALEZ M.D. > MTDD
[2018-10-03] MEDS: CHOLECALCIFEROL (D3) 1,000 UNIT TABLET PO SCH (17:21)
[2018-10-03] MEDS: NORMAL SALINE 1000 ML 1,000 ML IV PRN (17:21)
[2018-10-03] MEDS: ACETAMINOPHEN 325 MG TABLET PO PRN (17:30)
[2018-10-03] MEDS ORDERED: PEG 3350/NA SULF,BICARB,CL/KCL 4000 ML PO SCH (18:00)
[2018-10-03] MEDS ORDERED: BISACODYL 5 MG TABEC PO SCH (18:00)
[2018-10-03] MEDS: MIRTAZAPINE 15 MG TABLET PO SCH (21:17)
[2018-10-03] MEDS: SIMVASTATIN 40 MG TABLET PO SCH (21:17)
[2018-10-03] MEDS: TEMAZEPAM 7.5 MG CAPSULE PO PRN (23:44)
[2018-10-04] MEDS: LANSOPRAZOLE 30 MG TAB.RAP.DR PO SCH ×2 (05:12→18:24)
[2018-10-04] MEDS: NORMAL SALINE 1000 ML 1,000 ML IV PRN ×2 (05:14→16:55)
[2018-10-04 05:47] LABS: HEMATOCRIT 21.5 % (36.0-47.0); MEAN CORPUSCULAR HEMOGLOBIN 33.1 pg (27.0-33.4); MEAN CORPUSCULAR HGB CONC 34.5 g/dL (32.0-36.0); MEAN CORPUSCULAR VOLUME 96 fl (80-97); PLATELET COUNT 251 10^3/uL (150-450); RED BLOOD COUNT 2.24 10^6/uL (3.72-5.28); RED CELL DISTRIBUTION WIDTH 21.5 % (11.5-14.0); WHITE BLOOD COUNT 5.2 10^3/uL (4.0-10.5)
[2018-10-04 05:53] LABS: HEMOGLOBIN 7.4 g/dL (12.0-15.5)
[2018-10-04 06:17] LABS: ANION GAP 11 (5-19); BLOOD UREA NITROGEN 25 mg/dL (7-20); CALCIUM 8.4 mg/dL (8.4-10.2); CARBON DIOXIDE 17 mmol/L (22-30); CHLORIDE 114 mmol/L (98-107); GLUCOSE 68 mg/dL (75-110); POTASSIUM 4.3 mmol/L (3.6-5.0); SODIUM 141.8 mmol/L (137-145)
[2018-10-04] MEDS ORDERED: FENTANYL CITRATE INJ/PF 100 MCG/2 ML AMPUL ONE (07:53)
[2018-10-04] MEDS ORDERED: ONDANSETRON HCL INJ/PF 4 MG/2 ML SDV ONE (07:53)
[2018-10-04] MEDS ORDERED: MIDAZOLAM 2 MG/2 ML INJ ONE (07:53)
[2018-10-04] MEDS ORDERED: NALOXONE HCL INJ/PF 0.4 MG/1 ML SDV ONE (07:54)
[2018-10-04] MEDS ORDERED: FLUMAZENIL INJ 0.5 MG/5 ML VIAL ONE (07:54)
[2018-10-04] MEDS ORDERED: GLUCAGON,HUMAN RECOMB 1 MG INJ ONE (07:54)
[2018-10-04] MEDS ORDERED: EPINEPHRINE INJ 1 MG/10 ML DISP.SYRIN ONE (07:54)
--- NOTE | 2018-10-04 08:47 | Progress Note ---
Provider Note Provider Note: Asked to see patient patient is already being seen by surgery had EGD done yesterday, incomplete prep repeat colonoscopy is being done at the writing of this noted recommendations as per surgery spoke with Ms Falcon
--- NOTE | 2018-10-04 09:01 | Operative Report ---
Nonrecallable Operative Report DATE OF SURGERY: 10/04/18 PREOPERATIVE DIAGNOSIS: anemia. lower GI bleeding. Melena. Hematochetia. scattered sigmoid diverticulosis. S/P EGD. S/P colonoscopy with poor bowel preparation POSTOPERATIVE DIAGNOSIS: same. uncomplicated internal hemorrhoids OPERATION: Colonoscopy to cecum SURGEON: JENIFFER GONZALEZ ANESTHESIA: Moderate Sedation - provided by Dr. Gonzalez, 1 mg IVP Versed, 12.5 mcg Fentanyl TISSUE REMOVED OR ALTERED: none COMPLICATIONS: none ESTIMATED BLOOD LOSS: n/a INTRAOPERATIVE FINDINGS: scattered sigmoid diverticulosis, uncompolicated. Uncomplicated small internal henorrhoids PROCEDURE: see dictation
--- NOTE | 2018-10-04 09:10 | Progress Note ---
Provider Note Provider Note: EGD performed on 10/03/18 demonstrated mild duodenal inflammatikon and very small hiatal hernia Repeated colonoscopy completed to cecum today Only a few non bleeding scattered diverticuli seen in the sigmoid colon Few, uncomplicated internal hemorrhoids seen Recommendations: Resume diet Resume Eliquis in 5 days, or consult with her Home Theater Experience Expert / PCP in terms of long-term anticoagulation therapy. I will sign off.
[2018-10-04] MEDS: TRAMADOL HCL 50 MG TABLET PO SCH (10:09)
[2018-10-04] MEDS: CHOLECALCIFEROL (D3) 1,000 UNIT TABLET PO SCH (10:09)
[2018-10-04] MEDS: DOCUSATE SODIUM 100 MG CAPSULE PO SCH ×2 (10:10→18:24)
--- NOTE | 2018-10-04 14:37 | PDOC PROGRESS REPORT ---
Subjective Progress Note for:: 10/04/18 Subjective:: The patient is an 78-year-old female with a past medical history of CAD, SD, HTN , HLD, DVT, PE, who is chronically anticoagulated with Eliquis and was admitted on 10/01/2018 for symptomatic anemia with a hemoglobin of 5.6. The patient was seen on morning rounds shortly after returning from her second colonoscopy completed by Dr. Cid this morning. She has numerous family members present and introduces me to her 2 sons, [id number], and close friend. The patient states that she is feeling much better today and denies headache, dizziness, chest pain, palpitations, dyspnea, orthopnea, abdominal pain, nausea and vomiting. She does endorse one episode of scant rectal bleeding last night noted during a bowel movement. She has no new questions or concerns. No concerns per nursing. Reason For Visit: SEVERE ANEMIA Physical Exam Vital Signs: Temp Pulse Resp BP Pulse Ox 98.3 F 94 17 118/99 H 99 10/04/18 12:20 10/04/18 12:20 10/04/18 12:20 10/04/18 12:20 10/04/18 12:20 Intake & Output 10/03/18 10/04/18 10/05/18 06:59 06:59 06:59 Intake Total 2500 400 Balance 2500 400 Weight 87.8 kg 86.2 kg General appearance: PRESENT: no acute distress, cooperative - Pleasant, well- developed, well-nourished - Overweight Head exam: PRESENT: atraumatic, normocephalic Eye exam: PRESENT: conjunctiva pink, EOMI, PERRLA. ABSENT: scleral icterus Ear exam: PRESENT: normal external ear exam Mouth exam: PRESENT: moist, tongue midline Neck exam: ABSENT: carotid bruit, JVD, lymphadenopathy, thyromegaly Respiratory exam: PRESENT: clear to auscultation paco, symmetrical, unlabored. ABSENT: rales, rhonchi, wheezes Cardiovascular exam: PRESENT: RRR, +S1, +S2. ABSENT: diastolic murmur, rubs, systolic murmur Pulses: PRESENT: normal dorsalis pedis pul Vascular exam: PRESENT: normal capillary refill GI/Abdominal exam: PRESENT: normal bowel sounds, soft. ABSENT: distended, guarding, mass, organolmegaly, rebound, tenderness Rectal exam: PRESENT: deferred Extremities exam: PRESENT: full ROM. ABSENT: calf tenderness, clubbing, pedal edema Neurological exam: PRESENT: alert, awake, oriented to person, oriented to place , oriented to time, oriented to situation, CN II-XII grossly intact. ABSENT: motor sensory deficit Psychiatric exam: PRESENT: appropriate affect, normal mood. ABSENT: homicidal ideation, suicidal ideation Skin exam: PRESENT: dry, intact, warm. ABSENT: cyanosis, rash Results Laboratory Results: 10/04/18 04:29 10/04/18 04:29 10/04/18 10/04/18 04:29 04:29 WBC 5.2 RBC 2.24 L Hgb 7.4 L Hct 21.5 L MCV 96 MCH 33.1 MCHC 34.5 RDW 21.5 H Plt Count 251 Sodium 141.8 Potassium 4.3 Chloride 114 H Carbon Dioxide 17 L Anion Gap 11 BUN 25 H Creatinine 0.94 Est GFR ( Amer) > 60 Est GFR (Non-Af Amer) 57 L Glucose 68 L Calcium 8.4 Magnesium 1.4 L Impressions: Chest X-Ray 10/01/18 14:54 IMPRESSION: NO ACUTE FINDINGS. Venous Doppler Study 10/01/18 15:08 IMPRESSION: NO EVIDENCE DVT OR SVT IN EITHER LEG. Assessment & Plan - Diagnosis (1) Anemia Qualifiers: Anemia type: other cause Other causes of anemia: acute posthemorrhagic Qualified Code(s): D62 - Acute posthemorrhagic anemia Is this a current diagnosis for this admission?: Yes Plan: Acute blood loss anemia secondary to presumed GI bleed as the patient was noted to have heme (+) stools and suzan blood per rectum with bowel movements during her GI prep for colonoscopy. No s/p 4 units PRBCs this admission. Patient underwent 2 separate colonoscopies due to poor bowel prep during the first procedure. During the first colonoscopy (10/03/2018) the patient was found to have a small hiatal hernia, duodenitis, and sigmoid diverticulosis. The second colonoscopy (10/04/2018) revealed scattered sigmoid diverticulosis and uncomplicated small internal hemorrhoids. Surgery was consulted and following her second colonoscopy has recommended that her Eliquis be held for [address] Hodges also recommends consultation with her student advisor or PCP be obtained to consider efficacy of continued long-term anticoagulation therapy. She is advanced to a regular diet. Continue twice daily Prevacid. Will continue to trend CBC. Anticipate discharge tomorrow if hemoglobin stabilizes. (2) Anticoagulant long-term use Is this a current diagnosis for this admission?: Yes Plan: The patient has been on Eliquis for more than a year following pulmonary embolism. Prior to that she has been anticoagulated on short-term Xarelto for DVT. Family members report that at the time of her pulmonary embolism, her primary care provider reported that she would need to be on lifelong anticoagulants. We briefly discussed the risks and benefits of continued anticoagulant therapy now that the patient has developed GI bleeding complications. They are advised that we are recommending that she hold her Eliquis for minimum of 5 days and follow-up with her primary care provider to further discuss the risk and benefits of continued long-term use. (3) Coronary artery disease Qualifiers: Coronary Disease-Associated Artery/Lesion type: [place] artery Associated angina: angina presence unspecified Is this a current diagnosis for this admission?: Yes Plan: The patient's home dose simvastatin is continued. Her Eliquis and aspirin therapy are on hold secondary to active GI bleeding. Her antihypertensives are held temporarily due to hypotension in the setting of acute blood loss anemia. (4) Hyperlipidemia Is this a current diagnosis for this admission?: Yes Plan: Continue home dose simvastatin. (5) Hypertension Is this a current diagnosis for this admission?: Yes Plan: The patient's home dose antihypertensive medications have temporarily been held secondary to low blood pressures in the setting of acute blood loss anemia. Today her blood pressures are slightly elevated, however, are acceptable for her age. We will continue to monitor closely and resume her home dose medications as appropriate. (6) Osteoarthritis Qualifiers: Osteoarthritis location: unspecified site Osteoarthritis type: unspecified Qualified Code(s): M19.90 - Unspecified osteoarthritis, unspecified site Is this a current diagnosis for this admission?: Yes Plan: We will continue Tylenol and tramadol as needed for pain. Avoid all NSAIDs secondary to GI bleed and opiates due to age and increased fall risk. (7) Personal history of pulmonary embolism Is this a current diagnosis for this admission?: Yes Plan: As above. - Time Time Spent with patient: 15-24 minutes Medications reviewed and adjusted accordingly: Yes Anticipated discharge: Home Within: within 24 hours
[2018-10-04 15:32] LABS: HEMATOCRIT 26.2 % (36.0-47.0); HEMOGLOBIN 9.1 g/dL (12.0-15.5); MEAN CORPUSCULAR HEMOGLOBIN 32.5 pg (27.0-33.4); MEAN CORPUSCULAR HGB CONC 34.7 g/dL (32.0-36.0); MEAN CORPUSCULAR VOLUME 94 fl (80-97); PLATELET COUNT 271 10^3/uL (150-450); WHITE BLOOD COUNT 6.3 10^3/uL (4.0-10.5)
[2018-10-04] MEDS: TEMAZEPAM 7.5 MG CAPSULE PO PRN (21:54)
[2018-10-04] MEDS: ACETAMINOPHEN 325 MG TABLET PO PRN (21:54)
[2018-10-04] MEDS: MIRTAZAPINE 15 MG TABLET PO SCH (21:55)
[2018-10-04] MEDS: SIMVASTATIN 40 MG TABLET PO SCH (21:57)
[2018-10-05] MEDS: LANSOPRAZOLE 30 MG TAB.RAP.DR PO SCH (05:49)
[2018-10-05 06:34] LABS: HEMATOCRIT 25.2 % (36.0-47.0); HEMOGLOBIN 8.6 g/dL (12.0-15.5); MEAN CORPUSCULAR HGB CONC 34.2 g/dL (32.0-36.0); MEAN CORPUSCULAR VOLUME 94 fl (80-97); PLATELET COUNT 255 10^3/uL (150-450); RED BLOOD COUNT 2.69 10^6/uL (3.72-5.28); RED CELL DISTRIBUTION WIDTH 21.3 % (11.5-14.0); WHITE BLOOD COUNT 5.2 10^3/uL (4.0-10.5)
[2018-10-05 06:57] LABS: ANION GAP 9 (5-19); BLOOD UREA NITROGEN 21 mg/dL (7-20); CALCIUM 8.7 mg/dL (8.4-10.2); CARBON DIOXIDE 19 mmol/L (22-30); CHLORIDE 115 mmol/L (98-107); GLUCOSE 96 mg/dL (75-110); POTASSIUM 4.2 mmol/L (3.6-5.0); SODIUM 142.9 mmol/L (137-145)
[2018-10-05] MEDS: TRAMADOL HCL 50 MG TABLET PO SCH (09:15)
[2018-10-05] MEDS: CHOLECALCIFEROL (D3) 1,000 UNIT TABLET PO SCH (09:16)
[2018-10-05] MEDS: DOCUSATE SODIUM 100 MG CAPSULE PO SCH (09:16)
--- NOTE | 2018-10-05 11:02 | OPERATIVE REPORT E ---
Operative Report NAME: SARBJIT BECERRIL : 1940 AGE: 78Y DATE OF SURGERY: 10/04/2018 ROOM: 404 PREOPERATIVE DIAGNOSES: 1. Anemia. 2. Lower gastrointestinal bleeding. 3. Status post EGD. 4. Status post colonoscopy with poor bowel prep. 5. Sigmoid diverticulosis. POSTOPERATIVE DIAGNOSES: 1. Anemia. 2. Lower gastrointestinal bleeding. 3. Status post EGD. 4. Status post colonoscopy with poor bowel prep. 5. Sigmoid diverticulosis. PROCEDURE: Colonoscopy to cecum. SURGEON: JENIFFER GONZALEZ M.D. SUPERVISOR WATER TREATMENT PLANT: None. BLEEDING: None. COMPLICATIONS: None. ANESTHESIA: IV sedation provided by Dr. Gonzalez, 1 mg IV push of Versed, 12.5 mcg IV push of fentanyl. INDICATIONS AND FINDINGS: This is an 78-year-old female who presented to the hospital with weakness, shortness of breath, severe anemia, history of melena and hematochezia. She underwent transfusion of 5 units of blood. Hemoglobin and hematocrit have remained stable since yesterday morning. The patient underwent a bowel prep the day before yesterday and an EGD and colonoscopy yesterday. EGD was negative except for a moderate amount of duodenitis to the second portion of the duodenum, but no abnormalities were noted except for a small hiatal hernia. The colonoscopy was completed to cecum; however, the completion was very poor, and besides, the presence of scattered diverticula to the sigmoid colon. No other lesions were noted. A decision was made to have the patient undergo a second bowel prep and to perform a colonoscopy today. Procedure risks, benefits, and complications were explained to the patient. She understands and decided to proceed. DESCRIPTION OF PROCEDURE: It was done in the procedure room. The patient was placed in the lateral decubitus. IV sedation provided as above with fentanyl and Versed. The colonoscope was inserted from the rectum to the ascending colon up to the cecum. Preparation was fair. No masses, polyps, or fissures mucosal changes were noted. The scattered diverticula were noted in the sigmoid colon, but no active bleeding was seen. At the level of the rectum, the to be retroflexed because of a lack of rectal tone, but small uncomplicated internal hemorrhoids were seen. This was removed from the . The patient tolerated the procedure well and transferred to the recovery room in satisfactory condition. DICTATING PHYSICIAN: JENIFFER GONZALEZ M.D. [id number] PHY#: [id number] ID: [id number] JOB#: [id number] ACCT: [id number] cc:JENIFFER GONZALEZ M.D. >
[2018-10-05 14:11] LABS: HEMATOCRIT 25.6 % (36.0-47.0); HEMOGLOBIN 8.9 g/dL (12.0-15.5); MEAN CORPUSCULAR HEMOGLOBIN 32.6 pg (27.0-33.4); MEAN CORPUSCULAR HGB CONC 34.8 g/dL (32.0-36.0); MEAN CORPUSCULAR VOLUME 94 fl (80-97); PLATELET COUNT 270 10^3/uL (150-450); RED BLOOD COUNT 2.73 10^6/uL (3.72-5.28); RED CELL DISTRIBUTION WIDTH 20.7 % (11.5-14.0); WHITE BLOOD COUNT 6.8 10^3/uL (4.0-10.5)
[2018-10-05 14:56] VITALS: BP 120/48
--- NOTE | 2018-10-05 17:20 | PDOC DISCHARGE SUMMARY ---
General - Admit/Disc Date/PCP Admission Date/Primary Care Provider: 10/01/18 18:11 Discharge Date: 10/05/18 - Discharge Diagnosis (1) Anemia Is this a current diagnosis for this admission?: Yes Summary: Secondary to likely diverticular bleed while chronically anticoagulated on Eliquis for DVT and unprovoked pulmonary embolus. On admission, the patient was noted to have symptomatic anemia with a hemoglobin of 5.6. She received a total of 4 units packed red blood cells during this admission with stabilization of her hemoglobin 8.9. Patient's Eliquis was held and she has been instructed not to resume this medication for at least an additional 5 days. She has been advised of the risks of severe bleeding and is recommended to discuss the risks and benefits of resuming chronic anticoagulation with her primary care provider. She may be a candidate for IVC filter. (2) GI bleed Is this a current diagnosis for this admission?: Yes Summary: The patient presented with a complaint of shortness of breath and found to have a hemoglobin of 5.6. She was noted to have heme positive stools and suzan blood per rectum with bowel movements during her GI prep for colonoscopy. Following colonoscopies, her GI bleed is determined to likely be diverticular in nature. Patient underwent 2 separate colonoscopies due to poor bowel prep during the first procedure. During the first colonoscopy (10/03/2018) the patient was found to have a small hiatal hernia, duodenitis, and sigmoid diverticulosis. The second colonoscopy (10/04/2018) revealed scattered sigmoid diverticulosis and uncomplicated small internal hemorrhoids. She is recommended to avoid all aspirin and NSAID preparations for management of her osteoarthritis secondary to GI bleeding. She is placed on Prevacid and provided a prescription at discharge for continued use. She is advised to utilize [id number] stool softeners to manage her constipation for prevention of worsening internal hemorrhoids. She is instructed to hold her Eliquis and aspirin for minimum of 5 additional days; she is advised to follow-up with her primary care provider to discuss the risks and benefits of resuming chronic anticoagulation given her development of severe GI bleeding requiring multiple blood transfusions. She is educated on signs and symptoms of continued GI bleeding and advised to return to the emergency department for any concerning symptoms. (3) Anticoagulant long-term use Is this a current diagnosis for this admission?: Yes Summary: The patient has been on Eliquis for more than a year following pulmonary embolism. Prior to that she has been anticoagulated on short-term Xarelto for DVT. Medical history is limited due to poor historians, however, it does sound as if the pulmonary embolus was unprovoked prompting her primary care provider to recommend lifelong anticoagulant therapy. We discussed the risks and benefits of continued anticoagulant therapy now that the patient has developed GI bleeding complications requiring multiple blood transfusions. They are advised that we are recommending that she hold her Eliquis for minimum of 5 days and to follow-up with her primary care provider to further discuss the risk and benefits of continued long-term use and the potential candidacy for IVC filter. (4) Coronary artery disease Is this a current diagnosis for this admission?: Yes Summary: Without active chest pain. The patient's home dose statin therapy was continued. Eliquis and aspirin are discontinued secondary to active GI bleeding. The patient and family are advised to hold these medications for an additional 5 days and to review risks and benefits with primary care provider at follow-up visit. Her antihypertensives were briefly held secondary to hypertension in the setting of acute blood loss anemia; these are resumed at time of discharge. (5) Hyperlipidemia Is this a current diagnosis for this admission?: Yes Summary: As above. (6) Hypertension Is this a current diagnosis for this admission?: Yes Summary: As above. (7) Osteoarthritis Is this a current diagnosis for this admission?: Yes Summary: The patient was provided Tylenol and tramadol as needed for pain. She is instructed to avoid all NSAIDs and aspirin therapie secondary to GI bleed. (8) Personal history of pulmonary embolism Is this a current diagnosis for this admission?: Yes Summary: As above - Additional Information Resuscitation Status: Do Not Resuscitate Discharge Diet: Cardiac Discharge Activity: Activity As Tolerated, Balance Activity w/Rest, Slowly Increase Activity Prescriptions: Docusate Sodium [Colace 100 mg Capsule] 100 mg PO BID #60 capsule Lansoprazole [Prevacid 30 mg Odt Tablet] 30 mg PO BID@0600,1700 #[address] Doty Medications: Amlodipine Besylate [Norvasc 10 mg Tablet] 10 mg PO DAILY 08/10/17 Aspirin [Aspirin EC] 81 mg PO DAILY 08/10/17 Cholecalciferol (Vitamin D3) [Vitamin D3 1000 Unit Tablet] 1,000 unit PO DAILY 08/10/17 Isosorbide Mononitrate [Isosorbide Mononitrate ER] 30 mg PO DAILY 08/10/17 Metoprolol Tartrate [Lopressor 50 mg Tablet] 50 mg PO Q12 08/10/17 Mirtazapine 7.5 mg PO QHS 08/10/17 Ramipril [Altace 10 mg Capsule] 10 mg PO Q12 08/10/17 Simvastatin [Zocor 40 mg Tablet] 40 mg PO QHS 08/10/17 Tramadol HCl [Ultram 50 mg Tablet] 100 mg PO Q12 08/10/17 Acetaminophen [Tylenol 325 mg Tablet] 650 mg PO Q6HP PRN tablet 10/05/18 Docusate Sodium [Colace 100 mg Capsule] 100 mg PO BID #60 capsule 10/05/18 Lansoprazole [Prevacid 30 mg Odt Tablet] 30 mg PO BID@0600,1700 #60 tab.tita. 10/05/18 History of Present Illness History of Present Illness: Per H&P by Dr. Bob: SARBJIT BECERRIL is a 78 year old female who presented to the emergency room with a complaint of worsened dyspnea for the last 3-4 days. She admits that she has had worse than her normal level of dyspnea present for 3-4 days, was of rather abrupt onset and has been continuous since it began. She describes the dyspnea as moderate to severe and has noted that it is significantly worsened with activity or exertion and is somewhat relieved by rest. She has not identified any other aggravating or ameliorating factors for her dyspnea. She admits to one prior episode of similar symptoms that occurred when she had a heart attack many years ago. She does admit that she is taking Eliquis twice daily for treatment of a pulmonary embolism a little more than a year ago. She denies chest pain, palpitations, orthopnea, syncope, fever, chills, swelling of her extremities, nausea, vomiting, diarrhea, dysuria , hematuria, melena, hematochezia, epistaxis, pharyngitis, headache and rash. She does admit that she has a mild cough at times when she assumes a recumbent position and earlier on the day of admission she noticed some blurriness and flashing lights in the vision of both of her eyes that resolved spontaneously and is no longer present. In the emergency room she was found to have a hemoglobin of 5.6 and as such she was admitted to the hospitalist service for further evaluation and treatment. Physical Exam Vital Signs: Temp Pulse Resp BP Pulse Ox 98.1 F 89 24 H 120/48 L 94 10/05/18 15:54 10/05/18 15:54 10/05/18 15:54 10/05/18 15:54 10/05/18 15:54 Intake & Output 10/04/18 10/05/18 10/06/18 06:59 06:59 06:59 Intake Total 2500 3155 Balance 2500 3155 Weight 86.2 kg 77.2 kg General appearance: PRESENT: no acute distress, well-developed, well-nourished - Overweight Head exam: PRESENT: atraumatic, normocephalic Eye exam: PRESENT: conjunctiva pink, EOMI, PERRLA. ABSENT: scleral icterus Ear exam: PRESENT: normal external ear exam Mouth exam: PRESENT: moist, tongue midline Neck exam: ABSENT: carotid bruit, JVD, lymphadenopathy, thyromegaly Respiratory exam: PRESENT: clear to auscultation paco, symmetrical, unlabored. ABSENT: rales, rhonchi, wheezes Cardiovascular exam: PRESENT: RRR. ABSENT: diastolic murmur, rubs, systolic murmur Pulses: PRESENT: normal dorsalis pedis pul Vascular exam: PRESENT: normal capillary refill GI/Abdominal exam: PRESENT: normal bowel sounds, soft. ABSENT: distended, guarding, mass, organolmegaly, rebound, tenderness Rectal exam: PRESENT: deferred Extremities exam: PRESENT: full ROM. ABSENT: calf tenderness, clubbing, pedal edema Musculoskeletal exam: PRESENT: ambulatory - 1 person assist utilizing walker; capable of side stepping. At baseline function per family members., other - Generalized weakness Neurological exam: PRESENT: alert, awake, oriented to person, oriented to place , oriented to time, oriented to situation, CN II-XII grossly intact. ABSENT: motor sensory deficit Psychiatric exam: PRESENT: appropriate affect, normal mood. ABSENT: homicidal ideation, suicidal ideation Skin exam: PRESENT: dry, intact, warm. ABSENT: cyanosis, rash Results Laboratory Results: 10/05/18 13:46 10/05/18 05:50 11/07/18 11/07/18 11/07/18 05:50 05:50 13:46 WBC 5.2 6.8 RBC 2.69 L 2.73 L Hgb 8.6 L 8.9 L Hct 25.2 L 25.6 L MCV 94 94 MCH 32.0 32.6 MCHC 34.2 34.8 RDW 21.3 H 20.7 H Plt Count 255 270 Sodium 142.9 Potassium 4.2 Chloride 115 H Carbon Dioxide 19 L Anion Gap 9 BUN 21 H Creatinine 1.09 Est GFR ( Amer) 58 L Est GFR (Non-Af Amer) 48 L Glucose 96 Calcium 8.7 Impressions: Chest X-Ray 10/01/18 14:54 IMPRESSION: NO ACUTE FINDINGS. Venous Doppler Study 10/01/18 15:08 IMPRESSION: NO EVIDENCE DVT OR SVT IN EITHER LEG. Qualifiers - * PATIENT BEING DISCHARGED WITH ANY OF THE FOLLOWING DIAGNOSIS: No Plan Discharge Plan: Discharge to home with home health physical therapy. Follow-up with primary care provider within 1 week; recommend repeat CBC at that time. She is instructed to hold her Eliquis for an additional 5 days. Recommend the patient discuss risks and benefits of resuming chronic anticoagulation in the setting of GI bleed requiring 4 units packed red blood cells with a history of DVT and unprovoked pulmonary embolus. The patient may be a candidate for IVC filter. She is advised to return to the emergency department for any concerning symptoms. Time Spent: Less than 30 Minutes
== END 2018-10-05 16:38 | disposition home health service (06) | DRG 811 ==
LOC: ER 14:16 → EH 18:11 → 4N 19:02
PROVIDERS: ADMIT Emergency Medicine; ATTEND Emergency Medicine
PROC: 30233N1 Transfusion of Nonautologous Red Blood Cells into Peripheral Vein, Percutaneous Approach (ICD-10-PCS; principal; 2018-10-01)
PROC: 0DJ08ZZ Inspection of Upper Intestinal Tract, Via Natural or Artificial Opening Endoscopic (ICD-10-PCS; 2018-10-03)
PROC: 0DJD8ZZ Inspection of Lower Intestinal Tract, Via Natural or Artificial Opening Endoscopic (ICD-10-PCS; 2018-10-03)
PROC: 30233N1 Transfusion of Nonautologous Red Blood Cells into Peripheral Vein, Percutaneous Approach (ICD-10-PCS; 2018-10-03 13:30)
PROC: 30233N1 Transfusion of Nonautologous Red Blood Cells into Peripheral Vein, Percutaneous Approach (ICD-10-PCS; 2018-10-04)
PROC: 0DJD8ZZ Inspection of Lower Intestinal Tract, Via Natural or Artificial Opening Endoscopic (ICD-10-PCS; 2018-10-04)
PROC: 3E02340 Introduction of Influenza Vaccine into Muscle, Percutaneous Approach (ICD-10-PCS; 2018-10-05)
DX: D62 Acute posthemorrhagic anemia (principal); K57.31 Diverticulosis of large intestine without perforation or abscess with bleeding; K44.9 Diaphragmatic hernia without obstruction or gangrene; K29.80 Duodenitis without bleeding; K64.8 Other hemorrhoids; I25.10 Atherosclerotic heart disease of native coronary artery without angina pectoris; E78.00 Pure hypercholesterolemia, unspecified; Z66 Do not resuscitate; E66.3 Overweight; I10 Essential (primary) hypertension; M06.9 Rheumatoid arthritis, unspecified; E78.1 Pure hyperglyceridemia; I25.2 Old myocardial infarction; Z23 Encounter for immunization; Z79.01 Long term (current) use of anticoagulants; Z86.711 Personal history of pulmonary embolism; Z79.899 Other long term (current) drug therapy; Z95.1 Presence of aortocoronary bypass graft; Z82.49 Family history of ischemic heart disease and other diseases of the circulatory system; Z79.82 Long term (current) use of aspirin; Z95.5 Presence of coronary angioplasty implant and graft
CPT/HCPCS: 36415; 36430; 43235; 45378; 71046; 80048; 80053; 80061; 81001; 82272; 82550; 82553; 82803; 83735; 83880; 84439; 84443; 84481; 84484; 85025; 85027; 85610; 86850; 86900; 86901; 86920; 90471; 90686; 93005; 93010; 93970; 99285; G0008; G8978-GP; G8979-GP; G8987-GO; G8988-GO; G8989-GO; J0171; J1610; J2250; J2310; J2405; J3010; J3490; J7030; P9016

== ENCOUNTER 2019-01-09 08:25 | Day surgery (SDC) | payer MEDICARE, MEDICAID ==
[~2019-01-09 08:25] MED LIST: CEFAZOLIN 1 GM/D5W RTU 1 GM/50 ML RTUPB IV ONE; CEFAZOLIN 1 GM/D5W RTU 1 GM/50 ML RTUPB IV PRN; DEXTROSE 5%-1/2 NORMAL SALINE 1,000 ML IV PRN; DIAZEPAM 5 MG TABLET ONE; DIAZEPAM 5 MG TABLET PO PRN; OXYCODONE-ACETAMINOPHEN 5-325 MG TABLET ONE; OXYCODONE-ACETAMINOPHEN 5-325 MG TABLET PO PRN
[2019-01-09 09:17] LABS: HEMATOCRIT 34.5 % (36.0-47.0); HEMOGLOBIN 11.5 g/dL (12.0-15.5); MEAN CORPUSCULAR HEMOGLOBIN 28.6 pg (27.0-33.4); MEAN CORPUSCULAR HGB CONC 33.3 g/dL (32.0-36.0); MEAN CORPUSCULAR VOLUME 86 fl (80-97); PLATELET COUNT 264 10^3/uL (150-450); RED BLOOD COUNT 4.02 10^6/uL (3.72-5.28); RED CELL DISTRIBUTION WIDTH 21.2 % (11.5-14.0); WHITE BLOOD COUNT 6.6 10^3/uL (4.0-10.5)
[2019-01-09] MEDS ORDERED: MIDAZOLAM 2 MG/2 ML INJ ONE (09:18)
[2019-01-09] MEDS ORDERED: LIDOCAINE 0.5% INJ-PF (5 MG/ML) 50 ML SDV ONE (09:18)
[2019-01-09] MEDS ORDERED: FENTANYL CITRATE INJ/PF 100 MCG/2 ML AMPUL ONE (09:19)
[2019-01-09] MEDS ORDERED: BACITRACIN INJ 50,000 UNIT VIAL ONE (09:19)
--- NOTE | 2019-01-09 09:27 | RADIOLOGY REPORT (SQ) ---
EXAM DESCRIPTION: CHEST SINGLE VIEW COMPLETED DATE/TIME: 01/09/2019 9:04 am REASON FOR STUDY: PREOP COMPARISON: 10/01/2018 EXAM PARAMETERS: NUMBER OF VIEWS: One view. TECHNIQUE: Single frontal radiographic view of the chest acquired. RADIATION DOSE: NA LIMITATIONS: None. FINDINGS: LUNGS AND PLEURA: Stable slight bibasilar atelectasis or scar. No acute pulmonary consol idation. No pneumothorax or pleural effusion. MEDIASTINUM AND HILAR STRUCTURES: No masses. Contour normal. HEART AND VASCULAR STRUCTURES: Heart normal in size. Normal vasculature. BONES: No acute findings. HARDWARE: Prior anterior median sternotomy and CABG. OTHER: No other significant finding. IMPRESSION: 1. Stable slight bibasilar atelectasis or scar. No acute pulmonary consolidation. TECHNICAL DOCUMENTATION: JOB ID: [id number]- All Rights Reserved Reading location - IP/workstation name: [email or web address]
[2019-01-09 09:37] LABS: ANION GAP 12 (5-19); BLOOD UREA NITROGEN 30 mg/dL (7-20); CALCIUM 9.8 mg/dL (8.4-10.2); CARBON DIOXIDE 24 mmol/L (22-30); CHLORIDE 105 mmol/L (98-107); GLUCOSE 111 mg/dL (75-110); POTASSIUM 4.4 mmol/L (3.6-5.0)
--- NOTE | 2019-01-09 14:43 | RADIOLOGY REPORT (SQ) ---
EXAM DESCRIPTION: IVC FILTER PLACEMENT COMPLETED DATE/TIME: 01/09/2019 2:11 pm REASON FOR STUDY: Z86.711 HISTORY OF PE Z86.711 PERSONAL HISTORY OF PULMONARY EMBOLISM COMPARISON: None. FLUOROSCOPY TIME: 2.5 minutes 41 images saved to PACS. TECHNIQUE: Intra-operative images acquired during surgical procedure to evaluate progress. NUMBER OF IMAGES: 41 LIMITATIONS: None. FINDINGS: Selected images from IVC filter placement. IMPRESSION: IMAGE(S) OBTAINED DURING PROCEDURE. COMMENT: Quality ID [id number]: Final reports for procedures using fluoroscopy that document radiation exp osure indices, or exposure time and number of fluorographic images (if radiation exposure indices are not available) Please consult full operative report of the attending physician for description of the procedure. TECHNICAL DOCUMENTATION: JOB ID: [id number] [employer]- All Rights Reserved Reading location - IP/workstation name: [email or web address]
--- NOTE | 2019-01-09 14:43 | Discharge Summary ---
Discharge Summary (SDC) - Discharge Final Diagnosis: #1 history of pulmonary embolism. 2. History of deep venous thrombosis. 3. History of gastrointestinal bleeding Date of Surgery: 01/09/19 Discharge Date: 01/09/19 Condition: Fair Forms: ASU Anesthesia D/C Instruction, Discharge POC-Surgical Service Treatment or Instructions: Discharge home [after recovery per ASU criteria]. Diet , as tolerated, when fully awake advance as tolerated. Activities within moderation encouraged. Follow up in my office by appointment in about [1 week]. Call for appointment. Leave wounds [covered], [keep clean and dry, until office visit in 1 week]. Meds per med rec. May shower [in 48 hrs], [try to keep operated area as dry as possible]. Referrals: LEIGHTON PRIDE MD [ACTIVE STAFF] - 01/18/19 1:45 pm Discharge Diet: As Tolerated Respiratory Treatments at Home: Deep Breathing/Coughing Discharge Activity: Activity As Tolerated Report the Following to Your Physician Immediately: Shortness of Breath, Nausea, Vomiting, Fever over 101 Degrees, Unusual Bleeding
--- NOTE | 2019-01-09 14:47 | Operative Report ---
Operative Report DATE OF SURGERY: 01/09/19 PREOPERATIVE DIAGNOSIS: #1 history of pulmonary embolism. 2. History of deep venous thrombosis. 3. History of gastrointestinal bleeding POSTOPERATIVE DIAGNOSIS: #1 history of pulmonary embolism. 2. History of deep venous thrombosis. 3. History of gastrointestinal bleeding OPERATION: 1. Ultrasound-guided access into the right internal jugular vein. 2. Insertion of inferior vena cava filter via real-time access in the right internal jugular vein. 3. Angiogram and interpretation. SURGEON: SAMMY ACOSTA DITCH REPAIRER: None. ANESTHESIA: Moderate Sedation TISSUE REMOVED OR ALTERED: Not applicable. COMPLICATIONS: None. ESTIMATED BLOOD LOSS: 5 mL. INTRAOPERATIVE FINDINGS: Of a satisfactory right internal jugular vein for access. Estimated to be 1.2 cm in diameter. Safe access under ultrasound guidance. Positioning of filter at about L3-L4. Just above the femoral bifurcation and below the renal veins. Hard copy documentation preserved. Postprocedure x-ray of the abdomen shows a filter in appropriate orientation and position. Postprocedure chest x-ray shows no obvious complication. PROCEDURE: After obtaining informed consent, the patient was taken to the Manager Car and positioned supine. The right neck and upper chest were prepared with chlorhexidine and draped out with sterile linen. After the " universal timeout", in which it was verified that the patient continued to receive antibiotic, the procedure commenced. A steriley sheathed ultrasound probe was used to evaluate the right external and internal jugular vein. Local anesthesia was infiltrated adjacent to the probe. Access into the right external jugular vein was obtained using a micropuncture needle, followed by micropuncture wire and then a micropuncture catheter. Manipulation into the central system proved difficult. A brief angiogram was done which showed a satisfactory route into the central system. Real-time ultrasound guidance was now used to access the internal jugular vein. This was done with a micropuncture needle, micropuncture wire followed by micropuncture catheter. This was followed by introduction of a 0.035 guidewire the tip of which was placed down into the inferior vena cava . The inferior vena cava filter introducer was now placed over the 0.035 Glidewire. The Glidewire was removed and an inferior vena cava angiogram obtained. A satisfactory position for the filter was ascertained and temporarily marked on the video screen. An appropriate angiogram still was placed on the adjacent screen. An Trapese filter was now inserted into the introducer and positioned with the push hemant so that it was just in the sheath. Gentle manipulation optimally positioned the filter which is now deployed by removing the introducer sheath over the push hemant. The push hemant was removed and the inferior vena cava angiogram done demonstrates a patency of the filter in appropriate position. The introducer was removed. Pressure was placed on the entry point for several minutes before applying a band aid. Time: 2.5 minutes. Exposure: 754.81 Arelis bernard. Contrast : 10 mils of Isovue-300, low osmolality. Copies of the dictated operative report for Dr. Sammy Ramos MD.
[2019-01-09 14:58] VITALS: BP 120/62
== END 2019-01-09 14:50 | disposition home or self-care (01) ==
LOC: CCL 08:25
PROVIDERS: ATTEND Surgery
DX: Z86.711 Personal history of pulmonary embolism (principal); Z86.718 Personal history of other venous thrombosis and embolism; Z01.818 Encounter for other preprocedural examination; I25.2 Old myocardial infarction; N18.3 Chronic kidney disease, stage 3 (moderate); I12.9 Hypertensive chronic kidney disease with stage 1 through stage 4 chronic kidney disease, or unspecified chronic kidney disease; M06.9 Rheumatoid arthritis, unspecified; G47.34 Idiopathic sleep related nonobstructive alveolar hypoventilation; K31.1 Adult hypertrophic pyloric stenosis; F03.90 Unspecified dementia, unspecified severity, without behavioral disturbance, psychotic disturbance, mood disturbance, and anxiety; D64.9 Anemia, unspecified; E78.00 Pure hypercholesterolemia, unspecified; Z79.899 Other long term (current) drug therapy; E66.3 Overweight; Z68.29 Body mass index [BMI] 29.0-29.9, adult
CPT/HCPCS: 36415; 85027; 80048; 37191; 76937; 77001; 71045; Q9967; J2250; J3490 ×2; J0690; A9270 ×2; J3010; J1644

== ENCOUNTER 2019-01-26 11:25 | Inpatient (IN) | payer MEDICARE, MEDICAID ==
[2019-01-26 12:34] LABS: ABSOLUTE BASOPHILS # (AUTO) 0.1 10^3/uL (0.0-0.2); ABSOLUTE EOSINOPHILS # (AUTO) 0.3 10^3/uL (0.0-0.6); ABSOLUTE LYMPHOCYTES (AUTO) 1.4 10^3/uL (0.5-4.7); ABSOLUTE NEUT (AUTO) 9.4 10^3/uL (1.7-8.2); BASOPHILS % (AUTO) 0.6 % (0-2); EOSINOPHILS % (AUTO) 2.7 % (0-6); HEMATOCRIT 33.7 % (36.0-47.0); HEMOGLOBIN 11.2 g/dL (12.0-15.5); LYMPHOCYTES % (AUTO) 11.6 % (13-45); MEAN CORPUSCULAR HEMOGLOBIN 27.9 pg (27.0-33.4); MEAN CORPUSCULAR HGB CONC 33.2 g/dL (32.0-36.0); MEAN CORPUSCULAR VOLUME 84 fl (80-97); MONOCYTES % (AUTO) 8.3 % (3-13); PLATELET COUNT 345 10^3/uL (150-450); RED BLOOD COUNT 4.02 10^6/uL (3.72-5.28); RED CELL DISTRIBUTION WIDTH 20.5 % (11.5-14.0); SEGMENTED NEUTROPHILS % (AUTO) 76.8 % (42-78); TOTAL CELLS COUNTED % (AUTO) 100 %; WHITE BLOOD COUNT 12.3 10^3/uL (4.0-10.5)
[2019-01-26 12:39] LABS: APPEARANCE,URINE CLOUDY; BILIRUBIN,URINE NEGATIVE (NEGATIVE); COLOR,URINE YELLOW; GLUCOSE, URINE NEGATIVE (NEGATIVE); KETONES,URINE NEGATIVE (NEGATIVE); LEUKOCYTE ESTERASE,URINE MODERATE (NEGATIVE); NITRITE,URINE POSITIVE (NEGATIVE); PROTEIN,URINE NEGATIVE (NEGATIVE); URINE SPECIFIC GRAVITY 1.016; UROBILINOGEN,URINE NEGATIVE mg/dL (<2.0)
[2019-01-26 12:53] LABS: ALANINE AMINOTRANSFERASE 18 U/L (9-52); ALBUMIN 3.3 g/dL (3.5-5.0); ALKALINE PHOSPHATASE 203 U/L (38-126); ANION GAP 14 (5-19); ASPARTATE AMINO TRANSFERASE 23 U/L (14-36); BILIRUBIN,DIRECT 0.5 mg/dL (0.0-0.4); BILIRUBIN,TOTAL 1.5 mg/dL (0.2-1.3); BLOOD UREA NITROGEN 46 mg/dL (7-20); CALCIUM 9.2 mg/dL (8.4-10.2); CARBON DIOXIDE 24 mmol/L (22-30); CHLORIDE 100 mmol/L (98-107); GLUCOSE 95 mg/dL (75-110); POTASSIUM 4.2 mmol/L (3.6-5.0); TOTAL PROTEIN 6.2 g/dL (6.3-8.2)
--- NOTE | 2019-01-26 14:28 | RADIOLOGY REPORT (SQ) ---
EXAM DESCRIPTION: U/S ABDOMEN LIMITED W/O DOP COMPLETED DATE/TIME: 01/26/2019 2:11 pm REASON FOR STUDY: Gallstones, right upper quadrant abdominal pain COMPARISON: None. TECHNIQUE: Dynamic and static grayscale images acquired of the abdomen and recorded on PACS. Additio nal selected color Doppler and spectral images recorded. LIMITATIONS: Limited visualization. Poor acoustical window FINDINGS: PANCREAS: Limited visualization. no masses seen LIVER: Normal size Echo texture normal. No focal masses. LIVER VASCULATURE: Normal directional flow of the main portal vein and hepatic veins. GALLBLADDER: 2.5 cm stone in the gallbladder neck. Gallbladder wall 4 mm. Small amount of perichole cystic fluid. ULTRASOUND-DETECTED GIBBS'S SIGN: Negative. INTRAHEPATIC DUCTS AND COMMON DUCT: CBD and intrahepatic ducts normal caliber. No filling defects. INFERIOR VENA CAVA: Normal flow. AORTA: No aneurysm. RIGHT KIDNEY: Normal size. Normal echogenicity. No solid or suspicious masses. No hydronephros is. No calcifications. PERITONEAL AND RIGHT PLEURAL SPACE: No ascites or effusions. OTHER: No other significant findings. IMPRESSION: Acute cholecystitis. TECHNICAL DOCUMENTATION: JOB ID: [id number]- All Rights Reserved Reading location - IP/workstation name: [email or web address]
--- NOTE | 2019-01-26 15:07 | ER Document Report ---
Entered by JAKE MEIER SCRIBE 01/26/19 1147 Acting as scribe for:SEPIDEH SMALLS MD ED General - General Stated Complaint: ABNORMAL LABS Time Seen by Provider: 01/26/19 11:29 Primary Care Provider: JAMSHID ROCHE MD [NO LOCAL MD] - Follow up as needed Mode of Arrival: Medic Information source: Patient Notes: Patient is an 78-year-old female who was sent to the the emergency department via EMS due to abnormal lab results. Patient states she has had right sided pain and decreased appetite for the last 3 days. Yesterday, patient had an ultrasound of the gallbladder done which showed a 2.4 cm stone and sludge. Patient states she is still having right sided pain. She denies any exacerbating or relieving factors. . This 78-year-old female patient who was admitted here on 10/01/2018 with a GI bleed requiring blood transfusions. She had been on Eliquis due to prior DVT and pulmonary embolus. All anticoagulant and antiplatelet medication was sto pped. She was discharged home to a rehab program. On 11/28/2018 her primary care provider saw her in follow-up and decided that she had little to no improvement in her mobility and found the patient was requiring full assistance at home. The family was unable to provide the assistance she needed so she was admitted into the assisted. She had been complaining of some right-sided abdominal pain, had an ultrasound done over at the assisted yesterday showing a large gallstone. She was sent to the emergency room today for further evaluation. She does have a past history of coronary artery disease, myocardial infarction, coronary artery stent. Prior deep venous thrombosis lower extremity with pulmonary embolus. TRAVEL OUTSIDE OF THE [place] IN LAST 30 DAYS: No - Related Data Allergies/Adverse Reactions: No Known Allergies Allergy (Verified 01/26/19 13:54) Past Medical History - General Information source: Patient - Social History Smoking Status: Never Smoker Cigarette use (# per day): No Chew tobacco use (# tins/day): No Family History: Hyperlipidemia - Past Medical History Cardiac Medical History: Reports: Hx DVT, Hx Heart Attack - x2, Hx Hypercholesterolemia, Hx Pulmonary Embolism GI Medical History: Reports: Other - GI bleed Musculoskeletal Medical History: Reports Hx Arthritis - rheumatoid Past Surgical History: Reports: Hx Coronary Artery Bypass Graft, Hx Open Heart Surgery - Triple Bypass - Immunizations Hx Diphtheria, Pertussis, Tetanus Vaccination: Yes Hx Pneumococcal Vaccination: 07/06/13 Review of Systems - Review of Systems Constitutional: No symptoms reported EENT: No symptoms reported Cardiovascular: No symptoms reported Respiratory: No symptoms reported Gastrointestinal: See HPI, Abdominal pain, Poor appetite Genitourinary: No symptoms reported Female Genitourinary: No symptoms reported Musculoskeletal: No symptoms reported Skin: No symptoms reported Hematologic/Lymphatic: No symptoms reported Neurological/Psychological: No symptoms reported -: Yes All other systems reviewed and negative Physical Exam - Vital signs Vitals: BP 127/68 H 01/26/19 11:44 - Notes Notes: GENERAL: Alert, interacts well. No acute distress. HEAD: Normocephalic, atraumatic. EYES: Pupils equal, round, and reactive to light. Extraocular movements intact. ENT: Oral mucosa moist, tongue midline. NECK: Full range of motion. Supple. Trachea midline. LUNGS: Clear to auscultation bilaterally, no wheezes, rales, or rhonchi. No respiratory distress. HEART: Regular rate and rhythm. No murmurs, gallops, or rubs. ABDOMEN: Soft, tender to palpate the right lower lateral abdomen. Non-distended. Bowel sounds present in all 4 quadrants. No guarding, rigidity, or rebound. EXTREMITIES: Moves all 4 extremities spontaneously. NEUROLOGICAL: Alert and oriented x3. Normal speech. PSYCH: Normal affect, normal mood. SKIN: Warm, dry, normal turgor. No rashes or lesions noted. Course - Vital Signs Vital signs: Temp Pulse Resp BP Pulse Ox 13 111/69 98 01/26/19 13:01 01/26/19 13:01 01/26/19 13:01 - Laboratory Result Diagrams: 01/26/19 12:05 01/26/19 12:05 Laboratory results interpreted by me: 01/26/19 01/26/19 01/26/19 12:05 12:05 12:05 WBC 12.3 H Hgb 11.2 L Hct 33.7 L RDW 20.5 H Lymphocytes % 11.6 L Absolute Neutrophils 9.4 H BUN 46 H Creatinine 2.07 H Est GFR ( Amer) 28 L Est GFR (Non-Af Amer) 23 L Total Bilirubin 1.5 H Direct Bilirubin 0.5 H Alkaline Phosphatase 203 H Total Protein 6.2 L Albumin 3.3 L Urine Blood SMALL H Urine Nitrite POSITIVE H Ur Leukocyte Esterase MODERATE H - Diagnostic Test Radiology reviewed: Reports reviewed - Gallbladder ultrasound shows a 2.5 cm stone in the gallbladder neck. There is gallbladder wall thickening at 4 mm. There is a small amount of pericholecystic fluid. - EKG Interpretation by Me EKG shows normal: Sinus rhythm, Kaycee, Intervals, ST-T Waves. abnormal: QRS Complexes - Old inferior infarct Rate: Normal - 73 Rhythm: NSR When compared to previous EKG there are: No significant change - Consults Dr. Bonilla Time consulted: 14:36 Consulted provider: will come to ER, will see as inpatient - Dr. Bonilla requests that I have the hospitalist service admit the patient and he will consult. Dr. Abraham from the hospitalist service is resistant to admitting and wants the surgeon to admit and have the medical service consult. After discussing this with Dr. GARCIA, he agrees to admit the patient on the condition that the patient will be transferred to the medicine service if she is not a surgical candidate after she is evaluated by medicine and cardiology for preop clearance. Dr. Abraham Consulted provider: will see as inpatient - Dr. Abraham stated that the new agreement between Dr. Maxwell and the surgical services was that cases such as this, would be admitted by the surgical service with consultation to the hospitalist service. Discharge - Discharge Clinical Impression: Cholelithiasis and acute cholecystitis with obstruction Urinary tract infection Qualifiers: Urinary tract infection type: site unspecified Hematuria presence: without hematuria Qualified Code(s): N39.0 - Urinary tract infection, site not specified Condition: Stable Disposition: ADMITTED INPATIENT Admitting Provider: Surgicalist Unit Admitted: Telemetry Referrals: JAMSHID ROCHE MD [NO LOCAL MD] - Follow up as needed I personally performed the services described in the documentation, reviewed and edited the documentation which was dictated to the scribe in my presence, and it accurately records my words and actions.
[2019-01-26] MEDS ORDERED: PIPERACILLIN/TAZOBACTAM 3.375 GM VIAL IV ONE (15:11)
--- NOTE | 2019-01-26 16:37 | PDOC H&P ---
History of Present Illness Admission Date/PCP: 01/26/19 15:33 History of Present Illness: SARBJIT BECERRIL is a 78 year old female presenting with 3-day history of diminished appetite and nausea with abdominal discomfort. Unknown whether she has had any fever or jaundice. Patient is a [facility] patient and has multiple medical problems including coronary artery disease status post coronary artery bypass grafting a number of years ago. She had a gastric ulcer bleed several months ago that was treated medically and with stoppage of her anticoagulation, her bleeding stopped. Unfortunately at the time of her bleed according to the family she suffered a myocardial infarction but she did not undergo any cardiac catheterization at that time. Patient had been on anticoagulation for deep venous thrombosis and pulmonary embolism in the past. Patient recently had a vena cava filter performed since her anticoagulation has been stopped. She has no history of stroke. Her gallstone had been noted on previous CT scan. Current ultrasound study demonstrates evidence of possible cholecystitis with gallbladder wall 4 mm, gallstones, and small amount of pericholecystic fluid. Patient denies any history of prior abdominal surgeries. Past Medical History Cardiac Medical History: Reports: DVT, Myocardial Infarction - x2, Hyperlipidema, Pulmonary Embolism Denies: Coronary Artery Disease, Hypertension Pulmonary Medical History: Denies: Asthma, Bronchitis, Chronic Obstructive Pulmonary Disease (COPD), Pneumonia Neurological Medical History: Denies: Seizures Endocrine Medical History: Denies: Diabetes Mellitus Type 1, Diabetes Mellitus Type 2, Hyperthyroidism, Hypothyroidism GI Medical History: Reports: Other - GI bleed due to gastric ulcer. Denies: Cirrhosis, Hepatitis Musculoskeltal Medical History: Reports: Arthritis - rheumatoid Denies: Gout Skin Medical History: Denies: Eczema, Psoriasis Psychiatric Medical History: Denies: Depression Hematology: Reports: Anemia Past Surgical History Past Surgical History: Reports: Coronary Artery Bypass Graft, Other - Vena cava filter placement. Denies: Hysterectomy Social History Smoking Status: Never Smoker Frequency of Alcohol Use: None Hx Recreational Drug Use: No Drugs: None Hx Prescription Drug Abuse: No Family History Family History: Hyperlipidemia Parental Family History Reviewed: No Children Family History Reviewed: No Sibling(s) Family History Reviewed.: No Medication/Allergy Home Medications: Amlodipine Besylate [Norvasc 10 mg Tablet] 10 mg PO DAILY 08/10/17 Aspirin [Aspirin EC] 81 mg PO DAILY 08/10/17 Cholecalciferol (Vitamin D3) [Vitamin D3 1000 Unit Tablet] 1,000 unit PO DAILY 08/10/17 Isosorbide Mononitrate [Isosorbide Mononitrate ER] 30 mg PO DAILY 08/10/17 Metoprolol Tartrate [Lopressor 50 mg Tablet] 50 mg PO Q12 08/10/17 Mirtazapine 7.5 mg PO QHS 08/10/17 Ramipril [Altace 10 mg Capsule] 10 mg PO Q12 08/10/17 Simvastatin [Zocor 40 mg Tablet] 40 mg PO QHS 08/10/17 Tramadol HCl [Ultram 50 mg Tablet] 100 mg PO Q12 08/10/17 Acetaminophen [Tylenol 325 mg Tablet] 650 mg PO Q6HP PRN tablet 10/05/18 Docusate Sodium [Colace 100 mg Capsule] 100 mg PO BID #60 capsule 10/05/18 Lansoprazole [Prevacid 30 mg Odt Tablet] 30 mg PO BID@0600,1700 #60 tab. 10/05/18 Allergies/Adverse Reactions: No Known Allergies Allergy (Verified 01/26/19 13:54) Physical Exam Vital Signs: Temp Pulse Resp BP Pulse Ox 98.4 F 17 114/64 95 01/26/19 16:01 01/26/19 16:01 01/26/19 16:01 01/26/19 16:01 General appearance: PRESENT: no acute distress, cooperative Eye exam: PRESENT: conjunctiva pink Respiratory exam: PRESENT: clear to auscultation paco Cardiovascular exam: PRESENT: RRR GI/Abdominal exam: PRESENT: other - Soft, nondistended, very mild right upper quadrant abdominal tenderness with deep palpation but no peritoneal signs. Neurological exam: PRESENT: alert, awake, other - Able to provide a good history. Psychiatric exam: PRESENT: appropriate affect Skin exam: PRESENT: warm Results Laboratory Results: 01/26/19 12:05 01/26/19 12:05 01/26/19 01/26/19 01/26/19 12:05 12:05 12:05 WBC 12.3 H RBC 4.02 Hgb 11.2 L Hct 33.7 L MCV 84 MCH 27.9 MCHC 33.2 RDW 20.5 H Plt Count 345 Seg Neutrophils % 76.8 Lymphocytes % 11.6 L Monocytes % 8.3 Eosinophils % 2.7 Basophils % 0.6 Absolute Neutrophils 9.4 H Absolute Lymphocytes 1.4 Absolute Monocytes 1.0 Absolute Eosinophils 0.3 Absolute Basophils 0.1 Sodium 138.0 Potassium 4.2 Chloride 100 Carbon Dioxide 24 Anion Gap 14 BUN 46 H Creatinine 2.07 H Est GFR ( Amer) 28 L Est GFR (Non-Af Amer) 23 L Glucose 95 Calcium 9.2 Total Bilirubin 1.5 H AST 23 ALT 18 Alkaline Phosphatase 203 H Total Protein 6.2 L Albumin 3.3 L Urine Color YELLOW Urine Appearance CLOUDY Urine pH 5.0 Ur Specific [place] 1.016 Urine Protein NEGATIVE Urine Glucose (UA) NEGATIVE Urine Ketones NEGATIVE Urine Blood SMALL H Urine Nitrite POSITIVE H Ur Leukocyte Esterase MODERATE H Urine WBC (Auto) 19 Urine RBC (Auto) 0 Impressions: Abdomen Ultrasound 01/26/19 11:39 IMPRESSION: Acute cholecystitis. Assessment & Plan - Diagnosis (1) Acute cholecystitis with chronic cholecystitis Is this a current diagnosis for this admission?: Yes Plan: Patient with gallstones and likely cholecystitis. Uncertain whether patient is a surgical candidate. She does have coronary artery disease and a recent myocardial infarction. Will admit the patient place her on antibiotics and bowel rest for now. Will consult hospitalist to help manage her medically. Will obtain cardiology consultation for her fitness to undergo surgery. If chan ent is too high of a risk for cholecystectomy, will have her undergo a cholecystostomy tube placement.
--- NOTE | 2019-01-26 16:50 | PDOC CONSULTATION ---
Consultation Consult Date: 01/26/19 Attending physician:: FLORECITA WEN Consult reason:: medical co-management History of Present Illness Admission Date/PCP: 01/26/19 15:33 History of Present Illness: SARBJIT BECERRIL is a 78 year old female with a PMH of DVT, PE, was on Eliquis but developed anemia from GI bleed in September 2018 hence was taken off Eliquis, recent IVC filter placement earlier this month, CAD with prior RCA stenting, prior CABG in 2002 who presented with persistent nausea and vomiting. Family is on bedside. Patient had multiple episodes of non bilious, nonbloody vomiting in the past 4 days. She complained of right subcostal pain but says she thought it was because she fell at [employer]. In the ER, she was found to have acute cholecystitis with a 2.5 cm stone on the gallbladder neck. Denies fever, chills, chest pain or SOB. Past Medical History Cardiac Medical History: Reports: DVT, Myocardial Infarction - x2, Hyperlipidema, Pulmonary Embolism Denies: Coronary Artery Disease, Hypertension Pulmonary Medical History: Denies: Asthma, Bronchitis, Chronic Obstructive Pulmonary Disease (COPD), Pneumonia Neurological Medical History: Denies: Seizures Endocrine Medical History: Denies: Diabetes Mellitus Type 1, Diabetes Mellitus Type 2, Hyperthyroidism, Hypothyroidism GI Medical History: Reports: Other - GI bleed Denies: Cirrhosis, Hepatitis Musculoskeltal Medical History: Reports: Arthritis - rheumatoid Denies: Gout Skin Medical History: Denies: Eczema, Psoriasis Psychiatric Medical History: Denies: Depression Hematology: Reports: Anemia Past Surgical History Past Surgical History: Reports: Coronary Artery Bypass Graft Denies: Hysterectomy Social History Smoking Status: Never Smoker Frequency of Alcohol Use: None Hx Recreational Drug Use: No Drugs: None Hx Prescription Drug Abuse: No Family History Family History: Hyperlipidemia Parental Family History Reviewed: Yes - no premature CAD Children Family History Reviewed: No Sibling(s) Family History Reviewed.: No Medication/Allergy Home Medications: Amlodipine Besylate [Norvasc 10 mg Tablet] 10 mg PO DAILY 08/10/17 Aspirin [Aspirin EC] 81 mg PO DAILY 08/10/17 Cholecalciferol (Vitamin D3) [Vitamin D3 1000 Unit Tablet] 1,000 unit PO DAILY 08/10/17 Isosorbide Mononitrate [Isosorbide Mononitrate ER] 30 mg PO DAILY 08/10/17 Metoprolol Tartrate [Lopressor 50 mg Tablet] 50 mg PO Q12 08/10/17 Mirtazapine 7.5 mg PO QHS 08/10/17 Ramipril [Altace 10 mg Capsule] 10 mg PO Q12 08/10/17 Simvastatin [Zocor 40 mg Tablet] 40 mg PO QHS 08/10/17 Tramadol HCl [Ultram 50 mg Tablet] 100 mg PO Q12 08/10/17 Acetaminophen [Tylenol 325 mg Tablet] 650 mg PO Q6HP PRN tablet 10/05/18 Docusate Sodium [Colace 100 mg Capsule] 100 mg PO BID #60 capsule 10/05/18 Lansoprazole [Prevacid 30 mg Odt Tablet] 30 mg PO BID@0600,1700 #60 tab.tita. 10/05/18 Allergies/Adverse Reactions: No Known Allergies Allergy (Verified 01/26/19 13:54) Review of Systems All systems: reviewed and no additional remarkable complaints except as stated - as mentioned in HPI Physical Exam Vital Signs: Temp Pulse Resp BP Pulse Ox 98.4 F 17 114/64 95 01/26/19 16:01 01/26/19 16:01 01/26/19 16:01 01/26/19 16:01 General appearance: PRESENT: no acute distress, well-developed, well-nourished Head exam: PRESENT: atraumatic, normocephalic Eye exam: PRESENT: conjunctiva pink, EOMI, PERRLA. ABSENT: scleral icterus Ear exam: PRESENT: normal external ear exam Mouth exam: PRESENT: moist, tongue midline Neck exam: ABSENT: carotid bruit, JVD, lymphadenopathy, thyromegaly Respiratory exam: PRESENT: clear to auscultation paco. ABSENT: rales, rhonchi, wheezes Cardiovascular exam: PRESENT: RRR. ABSENT: diastolic murmur, rubs, systolic murmur Pulses: PRESENT: normal dorsalis pedis pul Vascular exam: PRESENT: normal capillary refill GI/Abdominal exam: PRESENT: normal bowel sounds, soft. ABSENT: distended, guarding, mass, organolmegaly, rebound, tenderness Rectal exam: PRESENT: deferred Neurological exam: PRESENT: alert, awake, oriented to person, oriented to place, oriented to time, CN II-XII grossly intact. ABSENT: motor sensory deficit Results Laboratory Results: 01/26/19 12:05 01/26/19 12:05 01/26/19 01/26/19 01/26/19 12:05 12:05 12:05 WBC 12.3 H RBC 4.02 Hgb 11.2 L Hct 33.7 L MCV 84 MCH 27.9 MCHC 33.2 RDW 20.5 H Plt Count 345 Seg Neutrophils % 76.8 Lymphocytes % 11.6 L Monocytes % 8.3 Eosinophils % 2.7 Basophils % 0.6 Absolute Neutrophils 9.4 H Absolute Lymphocytes 1.4 Absolute Monocytes 1.0 Absolute Eosinophils 0.3 Absolute Basophils 0.1 Sodium 138.0 Potassium 4.2 Chloride 100 Carbon Dioxide 24 Anion Gap 14 BUN 46 H Creatinine 2.07 H Est GFR ( Amer) 28 L Est GFR (Non-Af Amer) 23 L Glucose 95 Calcium 9.2 Total Bilirubin 1.5 H AST 23 ALT 18 Alkaline Phosphatase 203 H Total Protein 6.2 L Albumin 3.3 L Urine Color YELLOW Urine Appearance CLOUDY Urine pH 5.0 Ur Specific Hampton 1.016 Urine Protein NEGATIVE Urine Glucose (UA) NEGATIVE Urine Ketones NEGATIVE Urine Blood SMALL H Urine Nitrite POSITIVE H Ur Leukocyte Esterase MODERATE H Urine WBC (Auto) 19 Urine RBC (Auto) 0 Impressions: Abdomen Ultrasound 01/26/19 11:39 IMPRESSION: Acute cholecystitis. Assessment & Plan - Diagnosis (1) Calculus of gallbladder with acute cholecystitis and obstruction Is this a current diagnosis for this admission?: Yes Plan: Surgery managing. Awaiting further cardiology evaluation. Bilirubin and alkaline phosphate are modestly elevated. (2) Acute kidney injury Is this a current diagnosis for this admission?: Yes Plan: Creatine elevated at 2.04. She has a baseline of 1. Will start patient on IV fluids. No prior diagnosis of CHF. Cardio has ordered echo as well. Repeat BMP tomorrow. - Time Time Spent: 30 to 50 Minutes
--- NOTE | 2019-01-26 22:04 | EKG REPORT ---
SEVERITY:- ABNORMAL ECG - SINUS RHYTHM PROBABLE INFERIOR INFARCT, AGE INDETERMINATE CONSIDER ANTERIOR INFARCT : Confirmed by: Linh Winter 26-Jan-2019 22:04:27
[2019-01-26] MEDS: DEXTROSE 5%-1/2 NORMAL SALINE 1,000 ML IV PRN (22:18)
[2019-01-27] MEDS: PIPERACILLIN SODIUM/TAZOBACTAM 2.25 GM in NORMAL SALINE 50 ML IV SCH ×4 (00:58→18:53)
[2019-01-27] MEDS ORDERED: PIPERACILLIN SODIUM/TAZOBACTAM 3.375 GM in NORMAL SALINE 100 ML IV SCH (02:00)
[2019-01-27] MEDS: DEXTROSE 5%-1/2 NORMAL SALINE 1,000 ML IV PRN (05:46)
[2019-01-27] MEDS: LANSOPRAZOLE 30 MG TAB.RAP.DR PO SCH (09:13)
--- NOTE | 2019-01-27 10:06 | XCELERA REPORT ---
[address] [address] Transthoracic Echocardiogram Report Name: SARBJIT BECERRIL Age: 78 yrs Gender: Female : 1940 Patient Status: Inpatient Patient Location: [address] [place] [address] Study Date: 01/26/2019 06:24 PM Height: 65 in Weight: 170 lb BSA: 1.8 m2 Procedure: A two-dimensional transthoracic echocardiogram with color flow and Doppler was performed. Study Quality: Poor. The study was technically difficult with many images being suboptimal in quality. Images were not obtained from all of the standard acoustic windows due to the limited scope of the study. Reason For Study: MURMUR History: MURMUR / Preop. Ordering Physician: ALPA JEFFREY Performed By: Cynthia Bales Interpretation Summary The left ventricle is grossly normal size. There is normal left ventricular wall thickness. No True apical 2 chamber views obtained.Hence cannot comment on the apical anterior , the basal anterior, the basal inferior and apical inferior woodward..The mid inferior is hypokinetic.The mid anterior and the rest of the LV woodward contract normally. . LVEF is normal and is 60% in the limited views. Doppler measurements suggest impaired left ventricular relaxation, which is associated with grade I/IV or mild diastolic dysfunction The right ventricle is not well visualized secondary to technical limitations Right atrium not well visualized secondary to technical limitations The left atrial size is normal. There is no evidence of mitral valve prolapse. There is no vegetation seen on the mitral valve. There is no mitral valve stenosis. There is a trace amount of mitral regurgitation There is no aortic valve stenosis No aortic regurgitation is present. There is no tricuspid stenosis. No tricuspid regurgitation. Unable to calculate RVSP due lack of TR jet. The pulmonic valve is not well visualized. There is no pericardial effusion. MMode/2D Measurements & Calculations RVDd: 2.6 cm LVIDd: 3.5 cm FS: 31.9 % Ao root diam: 2.8 cm IVSd: 1.1 cm LVIDs: 2.4 cm EDV(Teich): 49.6 ml Ao root area: 6.3 cm2 LVPWd: 0.90 cm ESV(Teich): 19.3 ml LA dimension: 2.5 cm EF(Teich): 61.1 % Doppler Measurements & Calculations MV E max mel: MV P1/2t max mel: Ao V2 max: LV V1 max P.7 cm/sec 55.7 cm/sec 126.0 cm/sec 4.1 mmHg MV A max mel: MV P1/2t: 60.3 msec Ao max P.3 mmHgLV V1 max: 74.8 cm/sec MVA(P1/2t): 3.7 cm2 101.0 cm/sec MV E/A: 0.62 MV dec slope: 270.5 cm/sec2 MV dec time: 0.21 sec TV V2 max: PA V2 max: PI end-d mel: MV P1/2t-pr_phl: 96.4 cm/sec 107.2 cm/sec 145.2 cm/sec 60.3 msec TV max PG: PA max P.6 mmHg 3.7 mmHg Left Ventricle The left ventricle is grossly normal size. There is normal left ventricular wall thickness. No True apical 2 chamber views obtained.Hence cannot comment on the apical anterior , the basal anterior, the basal inferior and apical inferior woodward..The mid inferior is hypokinetic.The mid anterior and the rest of the LV woodward contract normally. . LVEF is normal and is 60% in the limited views. Doppler measurements suggest impaired left ventricular relaxation, which is associated with grade I/IV or mild diastolic dysfunction. Right Ventricle The right ventricle is not well visualized secondary to technical limitations. Atria Right atrium not well visualized secondary to technical limitations. The left atrial size is normal. Mitral Valve There is no evidence of mitral valve prolapse. There is no vegetation seen on the mitral valve. There is no mitral valve stenosis. There is a trace amount of mitral regurgitation. Aortic Valve There is no aortic valve stenosis. No aortic regurgitation is present. Tricuspid Valve There is no tricuspid stenosis. No tricuspid regurgitation. Unable to calculate RVSP due lack of TR jet. Pulmonic Valve The pulmonic valve is not well visualized. Great Vessels The aortic root is not well visualized. Effusions There is no pericardial effusion. : ALPA JEFFREY > Alpa Jeffrey
[2019-01-27] MEDS ORDERED: REGADENOSON INJ 0.4 MG/5 ML DISP.SYRIN IV ONE (10:55)
[2019-01-27] MEDS: METOPROLOL TARTRATE 50 MG TABLET PO SCH ×2 (11:30→21:09)
[2019-01-27] MEDS: TRAMADOL HCL 50 MG TABLET PO PRN ×2 (11:30→21:09)
[2019-01-27] MEDS: AMLODIPINE BESYLATE 2.5 MG TABLET PO SCH (11:31)
[2019-01-27] MEDS: HYDROCHLOROTHIAZIDE 25 MG TABLET PO SCH (11:32)
[2019-01-27] MEDS: ISOSORBIDE MONONITRATE 30 MG TAB.ER.24H PO SCH (11:32)
[2019-01-27] MEDS ORDERED: NORMAL SALINE 1000 ML 1,000 ML IV PRN (11:47)
--- NOTE | 2019-01-27 14:59 | PDOC PROGRESS REPORT ---
Subjective Progress Note for:: 01/27/19 Subjective:: This is 78 years old female patient admitted for acute cholecystitis by surgical team. The hospitalist service consulted to manage her medical problems. This morning patient has cardiac stress test and as per Dr. Gallagher it is negative and cleared her for the surgery. I seen patient resting in bed comfortably and she does not have new complaint. Reason For Visit: CHOLECYSTITIS Physical Exam Vital Signs: Temp Pulse Resp BP Pulse Ox 98.8 F 92 12 150/82 H 97 01/27/19 12:00 01/27/19 12:00 01/27/19 12:00 01/27/19 12:00 01/27/19 12:00 Intake & Output 01/26/19 01/27/19 01/28/19 06:59 06:59 06:59 Intake Total 847 50 Balance 847 50 Weight 75.2 kg General appearance: PRESENT: no acute distress, well-developed, well-nourished Head exam: PRESENT: atraumatic, normocephalic Eye exam: PRESENT: conjunctiva pink, EOMI, PERRLA. ABSENT: scleral icterus Ear exam: PRESENT: normal external ear exam Mouth exam: PRESENT: moist, tongue midline Neck exam: ABSENT: carotid bruit, JVD, lymphadenopathy, thyromegaly Respiratory exam: PRESENT: clear to auscultation paco. ABSENT: rales, rhonchi, wheezes Cardiovascular exam: PRESENT: RRR. ABSENT: diastolic murmur, rubs, systolic murmur Pulses: PRESENT: normal dorsalis pedis pul Vascular exam: PRESENT: normal capillary refill GI/Abdominal exam: PRESENT: normal bowel sounds, soft. ABSENT: distended, guarding, mass, organolmegaly, rebound, tenderness Rectal exam: PRESENT: deferred Extremities exam: PRESENT: full ROM. ABSENT: calf tenderness, clubbing, pedal edema Neurological exam: PRESENT: alert, awake, oriented to person, oriented to place, oriented to time, oriented to situation, CN II-XII grossly intact. ABSENT: motor sensory deficit Psychiatric exam: PRESENT: appropriate affect, normal mood. ABSENT: homicidal ideation, suicidal ideation Skin exam: PRESENT: dry, intact, warm. ABSENT: cyanosis, rash Results Laboratory Results: 01/26/19 12:05 01/26/19 12:05 Impressions: Abdomen Ultrasound 01/26/19 11:39 IMPRESSION: Acute cholecystitis. Assessment & Plan - Diagnosis (1) Cholelithiasis with acute cholecystitis Is this a current diagnosis for this admission?: Yes Plan: Definitive management by her surgeon (2) Acute kidney injury Is this a current diagnosis for this admission?: Yes Plan: Cautious hydration and avoid nephrotoxic agents. (3) Elevated liver chemistry Is this a current diagnosis for this admission?: Yes Plan: Due to #1 (4) Coronary artery disease Is this a current diagnosis for this admission?: Yes Plan: Status post coronary artery bypass graft and stent placement. No anginal symptoms.
--- NOTE | 2019-01-27 15:03 | Progress Note ---
Provider Note Provider Note: INTRIM CARDIOLGY NOTE: Patient,who is well known to me, with history of Hypertension , CAD with ol TN, and history of RCA stent, and with no angina for cholecystectomy. 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 HENCE SHE WOULD BE AN ACCEPTABLE CARDIAC RISK FOR THIS SURGERY UNDER [facility]. I WILL FOLLOW PATIENT CLOSELY POST-OP. FORMAL CONSULT TO FOLLOW.
[2019-01-27] MEDS ORDERED: MIDAZOLAM 2 MG/2 ML INJ ONE (15:27)
[2019-01-27] MEDS ORDERED: SUGAMMADEX SODIUM 200 MG/2 ML SDV IV ONE (15:27)
[2019-01-27] MEDS ORDERED: ONDANSETRON HCL INJ/PF 4 MG/2 ML SDV ONE (15:27)
[2019-01-27] MEDS ORDERED: DEXAMETHASONE SOD PHOSPHATE INJ 4 MG/1 ML VIAL ONE (15:27)
[2019-01-27] MEDS ORDERED: FENTANYL CITRATE INJ/PF 100 MCG/2 ML AMPUL ONE (15:27)
[2019-01-27] MEDS ORDERED: PROPOFOL INJ 200 MG/20 ML VIAL IV ONE (15:28)
[2019-01-27] MEDS ORDERED: BUPIVACAINE HCL 0.5%-EPI 1:200000 INJ/PF 30 ML VIAL ONE (15:33)
[2019-01-27 15:53] LABS: ABSOLUTE BASOPHILS # (AUTO) 0.1 10^3/uL (0.0-0.2); ABSOLUTE EOSINOPHILS # (AUTO) 0.2 10^3/uL (0.0-0.6); ABSOLUTE LYMPHOCYTES (AUTO) 1.4 10^3/uL (0.5-4.7); BASOPHILS % (AUTO) 0.6 % (0-2); EOSINOPHILS % (AUTO) 2.2 % (0-6); HEMATOCRIT 32.3 % (36.0-47.0); HEMOGLOBIN 10.9 g/dL (12.0-15.5); LYMPHOCYTES % (AUTO) 12.9 % (13-45); MEAN CORPUSCULAR HEMOGLOBIN 28.1 pg (27.0-33.4); MEAN CORPUSCULAR HGB CONC 33.7 g/dL (32.0-36.0); MEAN CORPUSCULAR VOLUME 83 fl (80-97); MONOCYTES % (AUTO) 9.6 % (3-13); PLATELET COUNT 364 10^3/uL (150-450); RED BLOOD COUNT 3.88 10^6/uL (3.72-5.28); RED CELL DISTRIBUTION WIDTH 20.2 % (11.5-14.0); SEGMENTED NEUTROPHILS % (AUTO) 74.7 % (42-78); TOTAL CELLS COUNTED % (AUTO) 100 %; WHITE BLOOD COUNT 10.7 10^3/uL (4.0-10.5)
[2019-01-27 16:08] LABS: ALANINE AMINOTRANSFERASE < 6 U/L (9-52); ALBUMIN 3.6 g/dL (3.5-5.0); ALKALINE PHOSPHATASE 195 U/L (38-126); ANION GAP 9 (5-19); ASPARTATE AMINO TRANSFERASE 32 U/L (14-36); BILIRUBIN,DIRECT 0.5 mg/dL (0.0-0.4); BILIRUBIN,TOTAL 1.4 mg/dL (0.2-1.3); BLOOD UREA NITROGEN 37 mg/dL (7-20); CALCIUM 9.4 mg/dL (8.4-10.2); CARBON DIOXIDE 25 mmol/L (22-30); CHLORIDE 102 mmol/L (98-107); GLUCOSE 136 mg/dL (75-110); POTASSIUM 3.6 mmol/L (3.6-5.0); SODIUM 136.3 mmol/L (137-145); TOTAL PROTEIN 6.9 g/dL (6.3-8.2)
[2019-01-27] MEDS ORDERED: FENTANYL CITRATE INJ/PF 100 MCG/2 ML AMPUL IV PRN ×3 (16:48)
[2019-01-27] MEDS ORDERED: MEPERIDINE HCL/PF INJ 25 MG/1 ML DISP.SYRIN IV PRN (16:48)
[2019-01-27] MEDS ORDERED: PROMETHAZINE HCL INJ 25 MG/1 ML VIAL IV PRN ×2 (16:48)
[2019-01-27] MEDS ORDERED: ONDANSETRON HCL INJ/PF 4 MG/2 ML SDV IV PRN ×2 (16:48→17:53)
[2019-01-27] MEDS ORDERED: MORPHINE SULFATE 10 MG/ML INJ IV PRN (16:48)
[2019-01-27] MEDS ORDERED: DIPHENHYDRAMINE HCL 50 MG/ML VIAL IV PRN (16:48)
[2019-01-27] MEDS: FENTANYL CITRATE INJ/PF 100 MCG/2 ML AMPUL ONE ×2 (17:44→17:55)
[2019-01-27] MEDS: KETOROLAC TROMETHAMINE INJ/PF 30 MG/1 ML SDV IV SCH (18:53)
--- NOTE | 2019-01-27 20:08 | OPERATIVE REPORT E ---
Operative Report NAME: SARBJIT BECERRIL : 1940 AGE: 78Y DATE OF SURGERY: 01/27/2019 ROOM: 423 PREOPERATIVE DIAGNOSIS: Acute calculus cholecystitis. POSTOPERATIVE DIAGNOSIS: Acute calculus cholecystitis. OPERATION: Laparoscopic cholecystectomy. SURGEON: EVIN SUTHERLAND M.D. ANESTHESIA: General. INDICATION: This is an 78-year-old female with right upper quadrant pains for the past few days and the patient unable to eat, because of nausea and vomiting. She had an ultrasound that showed gallstone that is impacted near the cystic duct. She had a stress test done today and cleared by Dr. Gallagher, licensed occupational therapy assistant. DESCRIPTION OF PROCEDURE: After adequate general anesthesia, the patient was first placed in the supine position, the abdomen prepped and draped in the usual sterile fashion. An infraumbilical incision was made and the fascia identified and grasped with Rojelio clamps and divided within the Rojelio clamps. Sutures using 0 Vicryl were placed along the Rojelio clamps and the abdominal cavity subsequently digitally entered and checked for any intraabdominal adhesions. Young trocar was then inserted through the fascia and CO2 insufflated to a pressure of 15 mmHg. Three other trocars were placed, 12 mm in the subxiphoid and two 5 mm in the right upper quadrant. The gallbladder was noted to be very distended and needed to be decompressed with a long needle and aspirated about 100 mL of light brownish fluid. The gallbladder was subsequently grasped, the tip, and pulled over the liver. Adhesions were gently lysed with the use of Harmonic adama. Cystic duct was identified and noted to be relatively small and serially clipped and divided between the 2 or 3 proximal clips and clipped near the gallbladder. The cystic artery was also clipped and divided between the clips with the use of Harmonic adama. The gallbladder was then taken off the liver bed with the use of Harmonic adama. The gallbladder was then placed in an Endobag and pulled out through the umbilical port. The gallbladder has at least a 2.5 cm palpable stone. The Young trocar was put back and the liver bed inspected and further hemostasis obtained with cautery. A piece of Surgicel was then placed over the liver bed just to make sure about hemostasis. A #15 Castro drain was then placed through the lower most, lateral most trocar site. It was then anchored to the skin with 3-0 Silk. The fascial defect was then closed with a [id number] suture using 0 Vicryl and a stay suture tied over in the middle. Marcaine with epinephrine was then injected as an anesthetic through the fascia into all the incision sites. All the skin incisions were then closed with running subcuticular closure using 4-0 Vicryl and dye. Steri-Strips were then placed over the operative site. Needle, instrument, and sponge counts were all correct. Estimated blood loss was about 10 to 15 mL. The patient then brought to the recovery room and extubated in satisfactory condition. DICTATING PHYSICIAN: EVIN SUTHERLAND M.D. [id number] PHY#: [id number] ID: [id number] JOB#: [id number] ACCT: [id number] cc:EVIN SUTHERLAND M.D. >
[2019-01-27] MEDS: MIRTAZAPINE 15 MG TABLET PO SCH (21:08)
[2019-01-27] MEDS: SIMVASTATIN 40 MG TABLET PO SCH (21:09)
[2019-01-28] MEDS: PIPERACILLIN SODIUM/TAZOBACTAM 2.25 GM in NORMAL SALINE 50 ML IV SCH ×5 (01:55→23:13)
[2019-01-28] MEDS: KETOROLAC TROMETHAMINE INJ/PF 30 MG/1 ML SDV IV SCH ×3 (01:55→17:13)
[2019-01-28 05:39] LABS: ABSOLUTE LYMPHOCYTES (AUTO) 0.7 10^3/uL (0.5-4.7); ABSOLUTE MONOCYTES (AUTO) 0.4 10^3/uL (0.1-1.4); ABSOLUTE NEUT (AUTO) 8.6 10^3/uL (1.7-8.2); BASOPHILS % (AUTO) 0.5 % (0-2); HEMATOCRIT 30.3 % (36.0-47.0); HEMOGLOBIN 10.2 g/dL (12.0-15.5); MEAN CORPUSCULAR HEMOGLOBIN 28.1 pg (27.0-33.4); MEAN CORPUSCULAR HGB CONC 33.7 g/dL (32.0-36.0); MEAN CORPUSCULAR VOLUME 83 fl (80-97); MONOCYTES % (AUTO) 3.8 % (3-13); PLATELET COUNT 342 10^3/uL (150-450); RED BLOOD COUNT 3.63 10^6/uL (3.72-5.28); RED CELL DISTRIBUTION WIDTH 19.7 % (11.5-14.0); SEGMENTED NEUTROPHILS % (AUTO) 88.7 % (42-78); TOTAL CELLS COUNTED % (AUTO) 100 %; WHITE BLOOD COUNT 9.7 10^3/uL (4.0-10.5)
[2019-01-28] MEDS: LANSOPRAZOLE 30 MG TAB.RAP.DR PO SCH (05:47)
[2019-01-28] MEDS: NORMAL SALINE 1000 ML 1,000 ML IV PRN ×2 (05:48→17:13)
[2019-01-28 05:59] LABS: ALANINE AMINOTRANSFERASE 24 U/L (9-52); ALBUMIN 2.8 g/dL (3.5-5.0); ALKALINE PHOSPHATASE 165 U/L (38-126); ANION GAP 12 (5-19); ASPARTATE AMINO TRANSFERASE 34 U/L (14-36); BILIRUBIN,DIRECT 0.4 mg/dL (0.0-0.4); BILIRUBIN,TOTAL 0.8 mg/dL (0.2-1.3); BLOOD UREA NITROGEN 32 mg/dL (7-20); CALCIUM 8.6 mg/dL (8.4-10.2); CARBON DIOXIDE 21 mmol/L (22-30); CHLORIDE 106 mmol/L (98-107); GLUCOSE 123 mg/dL (75-110); POTASSIUM 4.2 mmol/L (3.6-5.0); SODIUM 139.2 mmol/L (137-145); TOTAL PROTEIN 5.5 g/dL (6.3-8.2)
[2019-01-28 06:23] LABS: CHOLESTEROL 105.89 mg/dL (0-200); DIRECT LDL 73 mg/dL (<100); TRIGLYCERIDES 85 mg/dL (<150)
[2019-01-28] MEDS: ISOSORBIDE MONONITRATE 30 MG TAB.ER.24H PO SCH (10:28)
[2019-01-28] MEDS: AMLODIPINE BESYLATE 2.5 MG TABLET PO SCH (10:28)
[2019-01-28] MEDS: METOPROLOL TARTRATE 50 MG TABLET PO SCH ×2 (10:28→21:51)
[2019-01-28] MEDS: HYDROCHLOROTHIAZIDE 25 MG TABLET PO SCH (10:28)
--- NOTE | 2019-01-28 13:43 | PDOC PROGRESS REPORT ---
Subjective Progress Note for:: 01/28/19 Subjective:: Patient seen resting in bed. She is awake, alert, oriented x3. She denies any chest pain, shortness of breath or dyspnea at rest. She is presently not on any oxygen. She denies any nausea, vomiting or abdominal pain at the present time. She was noted to have an irregular pulse this morning and was placed on telemetry and is now on controlled rate atrial fibrillation. This is new for her. Dr. Soto saw the patient in consult as well. Denies any significant arthralgias or myalgias. Remaining review of systems are negative. Reason For Visit: CHOLECYSTITIS Physical Exam Vital Signs: Temp Pulse Resp BP Pulse Ox 98.1 F 94 18 124/65 99 01/28/19 08:00 01/28/19 08:00 01/28/19 08:00 01/28/19 08:00 01/28/19 08:00 Intake & Output 01/27/19 01/28/19 01/29/19 06:59 06:59 06:59 Intake Total 847 4380 Output Total 2355 Balance 847 2025 Weight 75.2 kg 75.2 kg General appearance: PRESENT: no acute distress, well-developed, well-nourished Head exam: PRESENT: atraumatic, normocephalic Eye exam: PRESENT: conjunctiva pink, EOMI, PERRLA. ABSENT: scleral icterus Ear exam: PRESENT: normal external ear exam Mouth exam: PRESENT: moist, tongue midline Neck exam: ABSENT: carotid bruit, JVD, lymphadenopathy, thyromegaly Respiratory exam: PRESENT: clear to auscultation paco. ABSENT: rales, rhonchi, wheezes Cardiovascular exam: PRESENT: irregular rhythm, +S1, +S2. ABSENT: diastolic murmur, rubs, systolic murmur Pulses: PRESENT: normal dorsalis pedis pul Vascular exam: PRESENT: normal capillary refill GI/Abdominal exam: PRESENT: normal bowel sounds, soft. ABSENT: distended, guarding, mass, organolmegaly, rebound, tenderness Rectal exam: PRESENT: deferred Extremities exam: PRESENT: full ROM. ABSENT: calf tenderness, clubbing, pedal edema Neurological exam: PRESENT: alert, awake, oriented to person, oriented to place, oriented to time, oriented to situation, CN II-XII grossly intact. ABSENT: motor sensory deficit Psychiatric exam: PRESENT: appropriate affect, normal mood. ABSENT: homicidal ideation, suicidal ideation Skin exam: PRESENT: dry, intact, warm. ABSENT: cyanosis, rash Results Laboratory Results: 01/28/19 05:25 01/28/19 05:25 01/27/19 01/27/19 01/28/19 15:48 15:48 05:25 WBC 10.7 H 9.7 RBC 3.88 3.63 L Hgb 10.9 L 10.2 L Hct 32.3 L 30.3 L MCV 83 83 MCH 28.1 28.1 MCHC 33.7 33.7 RDW 20.2 H 19.7 H Plt Count 364 342 Seg Neutrophils % 74.7 88.7 H Lymphocytes % 12.9 L 7.0 L Monocytes % 9.6 3.8 Eosinophils % 2.2 0.0 Basophils % 0.6 0.5 Absolute Neutrophils 8.0 8.6 H Absolute Lymphocytes 1.4 0.7 Absolute Monocytes 1.0 0.4 Absolute Eosinophils 0.2 0.0 Absolute Basophils 0.1 0.0 Sodium 136.3 L Potassium 3.6 Chloride 102 Carbon Dioxide 25 Anion Gap 9 BUN 37 H Creatinine 1.58 H Est GFR ( Amer) 38 L Est GFR (Non-Af Amer) 31 L Glucose 136 H Calcium 9.4 Total Bilirubin 1.4 H AST 32 ALT < 6 L Alkaline Phosphatase 195 H Total Protein 6.9 Albumin 3.6 Triglycerides Cholesterol LDL Cholesterol Direct VLDL Cholesterol HDL Cholesterol 01/28/19 01/28/19 05:25 05:25 WBC RBC Hgb Hct MCV MCH MCHC RDW Plt Count Seg Neutrophils % Lymphocytes % Monocytes % Eosinophils % Basophils % Absolute Neutrophils Absolute Lymphocytes Absolute Monocytes Absolute Eosinophils Absolute Basophils Sodium 139.2 Potassium 4.2 Chloride 106 Carbon Dioxide 21 L Anion Gap 12 BUN 32 H Creatinine 1.39 H Est GFR ( Amer) 44 L Est GFR (Non-Af Amer) 36 L Glucose 123 H Calcium 8.6 Total Bilirubin 0.8 AST 34 ALT 24 Alkaline Phosphatase 165 H Total Protein 5.5 L Albumin 2.8 L Triglycerides 85 Cholesterol 105.89 LDL Cholesterol Direct 73 VLDL Cholesterol 17.0 HDL Cholesterol 26 L 01/26/19 12:05 Catheterized Urine Urine Culture - Final Escherichia Coli 01/28/19 05:25 Troponin I < 0.012 Impressions: Abdomen Ultrasound 01/26/19 11:39 IMPRESSION: Acute cholecystitis. Assessment & Plan - Diagnosis (1) Calculus of gallbladder with acute cholecystitis and obstruction Is this a current diagnosis for this admission?: Yes Plan: Patient cleared for surgery by cardiology, management per surgical team (2) Atrial fibrillation Qualifiers: Atrial fibrillation type: paroxysmal Qualified Code(s): I48.0 - Paroxysmal atrial fibrillation Is this a current diagnosis for this admission?: Yes Plan: No prior history. Rate controlled (3) Coronary artery disease Is this a current diagnosis for this admission?: Yes Plan: Continue aspirin, beta kenny and statin (4) Elevated liver chemistry Is this a current diagnosis for this admission?: Yes (5) Urinary tract infection Qualifiers: Urinary tract infection type: site unspecified Hematuria presence: without hematuria Qualified Code(s): N39.0 - Urinary tract infection, site not specified Is this a current diagnosis for this admission?: Yes Plan: Continue antibiotic therapy (6) Hyperlipidemia Is this a current diagnosis for this admission?: Yes Plan: Continue statin (7) Hypertension Is this a current diagnosis for this admission?: Yes Plan: Normotensive - Time Time Spent with patient: 25-34 minutes Total Critical Time (Minutes): 25 Medications reviewed and adjusted accordingly: Yes - Inpatient Certification Based on my medical assessment, after consideration of the patient's c omorbidities, presenting symptoms, or acuity I expect that the services needed warrant INPATIENT care.: Yes I certify that my determination is in accordance with my understanding of Medicare's requirements for reasonable and necessary INPATIENT services [42 CFR 412.3e].: Yes Medical Necessity: Need For Continuous Telemetry Monitoring, Need for IV Antibiotics, Need for Surgery
--- NOTE | 2019-01-28 13:58 | PDOC PROGRESS REPORT ---
Subjective Progress Note for:: 01/28/19 Subjective:: Feels much better post op Reason For Visit: CHOLECYSTITIS Physical Exam Vital Signs: Temp Pulse Resp BP Pulse Ox 97.4 F 72 18 129/82 H 100 01/28/19 12:00 01/28/19 12:00 01/28/19 12:00 01/28/19 12:00 01/28/19 12:00 Intake & Output 01/27/19 01/28/19 01/29/19 06:59 06:59 06:59 Intake Total 847 4380 50 Output Total 2355 Balance 847 2025 50 Weight 75.2 kg 75.2 kg Exam: abdomen is soft with inimal tenderness RUQ. Drain about 195 ccs light bloody fluid. Results Laboratory Results: 01/28/19 05:25 01/28/19 05:25 01/27/19 01/27/19 01/28/19 15:48 15:48 05:25 WBC 10.7 H 9.7 RBC 3.88 3.63 L Hgb 10.9 L 10.2 L Hct 32.3 L 30.3 L MCV 83 83 MCH 28.1 28.1 MCHC 33.7 33.7 RDW 20.2 H 19.7 H Plt Count 364 342 Seg Neutrophils % 74.7 88.7 H Lymphocytes % 12.9 L 7.0 L Monocytes % 9.6 3.8 Eosinophils % 2.2 0.0 Basophils % 0.6 0.5 Absolute Neutrophils 8.0 8.6 H Absolute Lymphocytes 1.4 0.7 Absolute Monocytes 1.0 0.4 Absolute Eosinophils 0.2 0.0 Absolute Basophils 0.1 0.0 Sodium 136.3 L Potassium 3.6 Chloride 102 Carbon Dioxide 25 Anion Gap 9 BUN 37 H Creatinine 1.58 H Est GFR ( Amer) 38 L Est GFR (Non-Af Amer) 31 L Glucose 136 H Calcium 9.4 Total Bilirubin 1.4 H AST 32 ALT < 6 L Alkaline Phosphatase 195 H Total Protein 6.9 Albumin 3.6 Triglycerides Cholesterol LDL Cholesterol Direct VLDL Cholesterol HDL Cholesterol 01/28/19 01/28/19 05:25 05:25 WBC RBC Hgb Hct MCV MCH MCHC RDW Plt Count Seg Neutrophils % Lymphocytes % Monocytes % Eosinophils % Basophils % Absolute Neutrophils Absolute Lymphocytes Absolute Monocytes Absolute Eosinophils Absolute Basophils Sodium 139.2 Potassium 4.2 Chloride 106 Carbon Dioxide 21 L Anion Gap 12 BUN 32 H Creatinine 1.39 H Est GFR ( Amer) 44 L Est GFR (Non-Af Amer) 36 L Glucose 123 H Calcium 8.6 Total Bilirubin 0.8 AST 34 ALT 24 Alkaline Phosphatase 165 H Total Protein 5.5 L Albumin 2.8 L Triglycerides 85 Cholesterol 105.89 LDL Cholesterol Direct 73 VLDL Cholesterol 17.0 HDL Cholesterol 26 L 01/26/19 12:05 Catheterized Urine Urine Culture - Final Escherichia Coli 01/28/19 05:25 Troponin I < 0.012 Impressions: Abdomen Ultrasound 01/26/19 11:39 IMPRESSION: Acute cholecystitis. Assessment & Plan - Time Time Spent with patient: 15-24 minutes - Inpatient Certification Medical Necessity: Need For IV Fluids, Need for IV Antibiotics, Risk of Complication if Not Cared For in Hospital - Plan Summary Plan Summary: Continue IV antibiotics another 24 hrs. Had an Acute cholecystitis with a large stone. Somewhat difficult operation. Will D/C drain tomorrow am
--- NOTE | 2019-01-28 14:45 | Progress Note ---
Provider Note Provider Note: CARDIOLOGY PROGRESS NOTE by Dr. Alpa Burnett on 9 SUBJECTIVE: The patient seems to be in new onset atrial fibrillation with controlled ventricular response. She denies Palpitations. There is no dizziness, near-syncope syncope. She has no chest pain discomfort there is no PND orthopnea or leg edema. Pain at the incision site is well controlled. She has no nausea vomiting. There is no TIA CVA symptoms. There is no ventricular arrhythmias on the monitor at present note that the patient has been placed on telemetry a short while ago. Physical EXAMINATION: The patient is well-built and well-nourished in no acute distress. Selected Entries 01/28/19 12:00 Temperature 97.4 F Temperature Oral Source Pulse Rate 72 Respiratory 18 Rate Blood Pressure 129/82 H [Right 1] Blood Pressure 97 Mean [Right 1] Blood Pressure Sitting Position [Right 1] O2 Sat by Pulse 100 Oximetry Oxygen Delivery Room Air Method ( includes room air) Head is atraumatic normocephalic. EYES: Pupils are equal round regular, reactive to light accommodation. External ocular movements are normal. There is no conjunctival pallor. There is no scleral icterus. NOSE: There is no deviated nasal septum. There is no inflammation of his mucous membrane. EARS: Tympanic memories are intact. External auditory canals are clear MOUTH: There is no ulcers in the mouth. There is no bleeding from the gums. Mucous membranes of mouth and tongue are moist. THROAT: There is no redness of the oropharynx. There is no exudates. SKIN: There is no skin lesions or skin rashes. There is no particular ecchymosis. NECK: Supple. There is no JVD. Carotids are equal there is no bruit. There is no lymphadenopathy. There is no goiter. LUNGS: Clear to auscultation percussion, without any rhonchi rales or wheezing. On palpation there is no chest wall tenderness. HEART: S1-S2 is heard. S1 is of variable intensity there is no S3 gallop. There is no S4 gallop. There is systolic murmur left sternal border and the apex without radiation. There is no rub. ABDOMEN: Soft there is minimal discomfort on palpating the right upper quadrant. There is no rebound guarding or rigidity. There is no hepatosplenomegaly. Bowel sounds are well heard. EXTREMITIES: Femorals are slightly diminished. There is no femoral bruits. Leg pulses slightly diminished. There is no pedal edema. There is no DVT or cellulitis. There is no calf tenderness. There is no cyanosis or clubbing. Capillary refill is normal. BROADCASTER: The patient is conscious awake alert oriented x3 with no focal deficit. PSYCHIATRIC: The patient judgment insight are intact her affect is normal. 01/28/19 01/28/19 01/28/19 05:25 05:25 05:25 WBC 9.7 RBC 3.63 L Hgb 10.2 L Hct 30.3 L MCV 83 MCH 28.1 MCHC 33.7 RDW 19.7 H Plt Count 342 Seg Neutrophils % 88.7 H Lymphocytes % 7.0 L Monocytes % 3.8 Eosinophils % 0.0 Basophils % 0.5 Absolute Neutrophils 8.6 H Absolute Lymphocytes 0.7 Absolute Monocytes 0.4 Absolute Eosinophils 0.0 Absolute Basophils 0.0 Sodium 139.2 Potassium 4.2 Chloride 106 Carbon Dioxide 21 L Anion Gap 12 BUN 32 H Creatinine 1.39 H Est GFR (Non-Af Amer) 36 L Glucose 123 H Calcium 8.6 Total Bilirubin 0.8 Direct Bilirubin 0.4 Neonat Total Bilirubin Not Reportable Neonat Direct Bilirubin Not Reportable Neonat Indirect Bili Not Reportable AST 34 ALT 24 Alkaline Phosphatase 165 H Troponin I Total Protein 5.5 L Albumin 2.8 L Triglycerides 85 Cholesterol 105.89 LDL Cholesterol Direct 73 VLDL Cholesterol 17.0 HDL Cholesterol 26 L 01/28/19 05:25 WBC RBC Hgb Hct MCV MCH MCHC RDW Plt Count Seg Neutrophils % Lymphocytes % Monocytes % Eosinophils % Basophils % Absolute Neutrophils Absolute Lymphocytes Absolute Monocytes Absolute Eosinophils Absolute Basophils Sodium Potassium Chloride Carbon Dioxide Anion Gap BUN Creatinine Est GFR (Non-Af Amer) Glucose Calcium Total Bilirubin Direct Bilirubin Neonat Total Bilirubin Neonat Direct Bilirubin Neonat Indirect Bili AST ALT Alkaline Phosphatase Troponin I < 0.012 Total Protein Albumin Triglycerides Cholesterol LDL Cholesterol Direct VLDL Cholesterol HDL Cholesterol EKG: Shows atrial fibrillation with controlled ventricular response. Nonspecific IVCD. Old inferior GA. IMPRESSION/RECOMMENDATION: 1. New onset atrial fibrillation with controlled ventricular response. Continue beta-blockers. Patient is on a candidate for chronic anticoagulation, in view of the prior history of significant anemia due to GI bleed and diverticular disease and peptic ulcer disease. 2. Coronary artery disease. History of GA. History of coronary bypass graft surgery. No anginal symptoms. Continue beta-blockers, and nitrates. No evidence of ischemia on the EKG, and negative troponin today. 3. Hypertension: Blood pressure is. Continue his current blood pressure medications. 4. Hyperlipidemia: Continue statin. 5. Past history of GI bleed, with history of diverticulosis and history of peptic ulcers found on upper and lower GI endoscopies. At present no evidence of active bleeding. Hemoglobin is stable. 6. History of IVC filter placed. This filter was placed in view of the fact that the patient has prior history of PE and DVT, and with the patient's GI bleed and with a diverticular disease and peptic ulcer disease which are all contraindications for continuing chronic anticoagulation., To prevent any catastrophic B. 7. Past history of pulmonary embolism and DVT. No recurrence. 8. Chronic kidney disease stage III: Stable 9. Recent cholelithiasis/acute cholecystitis. Patient status post surgery. Stable. MEDICATIONS reviewed. Management plan discussed with other caregiving providers on the case. Medical decision making is now of moderate complexity. 40 minutes spent on this patient with more than 50% of time spent in direct patient care. We will follow.
--- NOTE | 2019-01-28 16:31 | EKG REPORT ---
SEVERITY:- ABNORMAL ECG - ATRIAL FIBRILLATION NONSPECIFIC INTRAVENTRICULAR CONDUCTION DELAY INFERIOR INFARCT, AGE INDETERMINATE : Confirmed by: Linh Winter 28-Jan-2019 16:31:15
[2019-01-28] MEDS: SIMVASTATIN 40 MG TABLET PO SCH (21:50)
[2019-01-28] MEDS: MIRTAZAPINE 15 MG TABLET PO SCH (21:51)
[2019-01-28] MEDS: TRAMADOL HCL 50 MG TABLET PO PRN (21:52)
[2019-01-29] MEDS: KETOROLAC TROMETHAMINE INJ/PF 30 MG/1 ML SDV IV SCH ×3 (03:18→17:08)
[2019-01-29] MEDS: NORMAL SALINE 1000 ML 1,000 ML IV PRN (05:02)
[2019-01-29] MEDS: LANSOPRAZOLE 30 MG TAB.RAP.DR PO SCH (05:02)
[2019-01-29] MEDS: PIPERACILLIN SODIUM/TAZOBACTAM 2.25 GM in NORMAL SALINE 50 ML IV SCH ×2 (05:02→12:16)
[2019-01-29 07:11] LABS: ABSOLUTE LYMPHOCYTES (AUTO) 1.1 10^3/uL (0.5-4.7); ABSOLUTE MONOCYTES (AUTO) 0.7 10^3/uL (0.1-1.4); ABSOLUTE NEUT (AUTO) 7.2 10^3/uL (1.7-8.2); BASOPHILS % (AUTO) 0.2 % (0-2); EOSINOPHILS % (AUTO) 0.1 % (0-6); HEMATOCRIT 27.6 % (36.0-47.0); HEMOGLOBIN 9.4 g/dL (12.0-15.5); MEAN CORPUSCULAR HEMOGLOBIN 28.4 pg (27.0-33.4); MEAN CORPUSCULAR HGB CONC 33.9 g/dL (32.0-36.0); MEAN CORPUSCULAR VOLUME 84 fl (80-97); MONOCYTES % (AUTO) 7.4 % (3-13); PLATELET COUNT 358 10^3/uL (150-450); RED CELL DISTRIBUTION WIDTH 19.9 % (11.5-14.0); SEGMENTED NEUTROPHILS % (AUTO) 80.3 % (42-78); TOTAL CELLS COUNTED % (AUTO) 100 %
[2019-01-29 07:37] LABS: ALANINE AMINOTRANSFERASE 17 U/L (9-52); ALBUMIN 2.4 g/dL (3.5-5.0); ALKALINE PHOSPHATASE 121 U/L (38-126); ANION GAP 9 (5-19); ASPARTATE AMINO TRANSFERASE 28 U/L (14-36); BILIRUBIN,DIRECT 0.4 mg/dL (0.0-0.4); BILIRUBIN,TOTAL 0.5 mg/dL (0.2-1.3); BLOOD UREA NITROGEN 39 mg/dL (7-20); CALCIUM 8.2 mg/dL (8.4-10.2); CARBON DIOXIDE 22 mmol/L (22-30); CHLORIDE 110 mmol/L (98-107); GLUCOSE 109 mg/dL (75-110); POTASSIUM 4.2 mmol/L (3.6-5.0); SODIUM 140.6 mmol/L (137-145); TOTAL PROTEIN 4.8 g/dL (6.3-8.2)
[2019-01-29] MEDS: AMLODIPINE BESYLATE 2.5 MG TABLET PO SCH (09:43)
[2019-01-29] MEDS: ISOSORBIDE MONONITRATE 30 MG TAB.ER.24H PO SCH (09:43)
[2019-01-29] MEDS: METOPROLOL TARTRATE 50 MG TABLET PO SCH (09:43)
[2019-01-29] MEDS: HYDROCHLOROTHIAZIDE 25 MG TABLET PO SCH (09:43)
--- NOTE | 2019-01-29 14:34 | DRAGON STRESS TEST REPORT ---
Intravenous Lexiscan Cardiolite stress test using single photon emmision computerized tomography. Date of procedure: 01/27/2019. Ordering Provider: Dr. Alpa Gallagher. Patient's status: In Patient. Indication: Coronary artery disease, history of old MA for preoperative cardiac risk assessment.. Coronary risk factors: Age, hypertension, and hyperlipidemia. Resting EKG: Sinus Rhythm. Nonspecific IVCD. Old inferior wall MA. Stress EKG: No changes of ischemia. The patient had no chest pain or discomfort, and there were no arrhythmias seen. Reason for termination: Protocol. Conclusions: Normal EKG and hemodynamic response to IV Lexiscan. Nuclear data: At rest the patient was given 11.99 millicuries of technetium 99m sestamibi injected intravenously. As per protocol rest non gated SPECT images were obtained. Subsequently the patient was given intravenous Lexiscan at a dose of 0.4 mg in 5 mL intravenously, followed by flush with normal saline. Subsequently the stress dose of 34.2 millicuries of technetium 99m sestamibi was injected intravenously. As per protocol stress gated images were obtained. Nuclear interpretation: Review of images showed that there was a perfusion defect involving the inferior wall in both the rest and stress images, which remained the same in both the rest and stress images. This area had decreased motion contraction and thickening by gated study. There is also a soft tissue attenuation artifact of a small area of the apical interventricular septum. This area of apical interventricular septum and the rest of the myocardial segments have normal motion contraction and thickening by gated study. The rest of the all segments of the myocardium had normal perfusion at rest, and normal perfusion post stress with IV Lexiscan. T. I D. ratio was normal at 1.09. There is no transient ischemic dilatation of the left ventricle. Computer read rest, and stress left ventricular ejection fraction were 43 %, and 55 %, respectively. Visually both the stress and rest ejection fractions were normal, and greater than 55%. Conclusion: 1. There is no scintigraphic evidence of Lexiscan induced myocardial ischemia. 2. There is scintigraphic evidence of myocardial infarction/scar involving the inferior wall. 3. There is soft tissue attenuation artifact of a small area of the apical interventricular septum. Recommendations: 1. Correlate clinically. 2.Aggressive risk factor modification, and treating the underlying co- morbidities. MTDD
--- NOTE | 2019-01-29 15:00 | PDOC PROGRESS REPORT ---
Subjective Progress Note for:: 01/29/19 Subjective:: Patient seen resting in bed. She is awake, alert, oriented x3. She denies any chest pain, shortness of breath or dyspnea at rest. She is presently not on any oxygen. She denies any nausea, vomiting or abdominal pain at the present time. She is tolerating full liquid diet. She has been cleared for by surgery and cardiology. She denies any significant arthralgias or myalgias. Remaining review of systems are negative. Reason For Visit: CHOLECYSTITIS Physical Exam Vital Signs: Temp Pulse Resp BP Pulse Ox 98.4 F 60 18 141/60 H 100 01/29/19 08:00 01/29/19 08:00 01/29/19 08:00 01/29/19 08:00 01/29/19 08:00 Intake & Output 01/28/19 01/29/19 01/30/19 06:59 06:59 06:59 Intake Total 4380 3280 Output Total 2355 130 Balance 2024 3150 Weight 75.2 kg 75.7 kg General appearance: PRESENT: no acute distress, obese, well-developed, well- nourished Head exam: PRESENT: atraumatic, normocephalic Eye exam: PRESENT: conjunctiva pink, EOMI, PERRLA. ABSENT: scleral icterus Ear exam: PRESENT: normal external ear exam Mouth exam: PRESENT: moist, tongue midline Respiratory exam: PRESENT: symmetrical, unlabored Cardiovascular exam: PRESENT: RRR. ABSENT: diastolic murmur, rubs, systolic murmur Pulses: PRESENT: normal dorsalis pedis pul GI/Abdominal exam: PRESENT: normal bowel sounds, soft, tenderness Rectal exam: PRESENT: deferred - Along incisions. Extremities exam: PRESENT: full ROM. ABSENT: calf tenderness, clubbing, pedal edema Musculoskeletal exam: PRESENT: full ROM, normal inspection Neurological exam: PRESENT: alert, awake, oriented to person, oriented to place, oriented to time, oriented to situation, CN II-XII grossly intact. ABSENT: motor sensory deficit Psychiatric exam: PRESENT: appropriate affect, normal mood. ABSENT: homicidal ideation, suicidal ideation Results Laboratory Results: 01/29/19 06:08 01/29/19 06:08 01/29/19 01/29/19 06:08 06:08 WBC 9.0 RBC 3.30 L Hgb 9.4 L Hct 27.6 L MCV 84 MCH 28.4 MCHC 33.9 RDW 19.9 H Plt Count 358 Seg Neutrophils % 80.3 H Lymphocytes % 12.0 L Monocytes % 7.4 Eosinophils % 0.1 Basophils % 0.2 Absolute Neutrophils 7.2 Absolute Lymphocytes 1.1 Absolute Monocytes 0.7 Absolute Eosinophils 0.0 Absolute Basophils 0.0 Sodium 140.6 Potassium 4.2 Chloride 110 H Carbon Dioxide 22 Anion Gap 9 BUN 39 H Creatinine 1.70 H Est GFR ( Amer) 35 L Est GFR (Non-Af Amer) 29 L Glucose 109 Calcium 8.2 L Magnesium 1.5 L Total Bilirubin 0.5 AST 28 ALT 17 Alkaline Phosphatase 121 Total Protein 4.8 L Albumin 2.4 L 01/26/19 12:05 Catheterized Urine Urine Culture - Final Escherichia Coli 01/28/19 01/29/19 05:25 08:56 Troponin I < 0.012 0.015 Impressions: Abdomen Ultrasound 01/26/19 11:39 IMPRESSION: Acute cholecystitis. Assessment & Plan - Diagnosis (1) Calculus of gallbladder with acute cholecystitis and obstruction Is this a current diagnosis for this admission?: Yes Plan: Postop day #2 lap cholclaudia, doing well. Minmal pain and feeling better. SHe has been cleared for discharge by surgery and cardiology. She resides at [facility] facility she will back tomorrow morning (2) Atrial fibrillation Qualifiers: Atrial fibrillation type: paroxysmal Qualified Code(s): I48.0 - Paroxysmal atrial fibrillation Is this a current diagnosis for this admission?: Yes Plan: No prior history. Rate controlled (3) Coronary artery disease Is this a current diagnosis for this admission?: Yes Plan: Continue aspirin, beta kenny and statin (4) Elevated liver chemistry Is this a current diagnosis for this admission?: Yes Plan: Resolving (5) Urinary tract infection Qualifiers: Urinary tract infection type: site unspecified Hematuria presence: without hematuria Qualified Code(s): N39.0 - Urinary tract infection, site not specified Is this a current diagnosis for this admission?: Yes Plan: Patient no longer needs IV Zosyn for cholecystitis. We will therefore transition to oral Ceftin 250 twice daily for the next 4 days for her UTI. (6) Hyperlipidemia Is this a current diagnosis for this admission?: Yes Plan: Continue statin (7) Hypertension Is this a current diagnosis for this admission?: Yes Plan: Normotensive - Time Time Spent with patient: 25-34 minutes Total Critical Time (Minutes): 20 Medications reviewed and adjusted accordingly: Yes Anticipated discharge: SNF Within: within 24 hours - She is a resident [facility] she can return there tomorrow - Inpatient Certification Based on my medical assessment, after consideration of the patient's comorbidities, presenting symptoms, or acuity I expect that the services needed warrant INPATIENT care.: Yes I certify that my determination is in accordance with my understanding of Medicare's requirements for reasonable and necessary INPATIENT services [42 CFR 412.3e].: Yes Medical Necessity: Need for IV Antibiotics, Need for Surgery, Risk of Compli cation if Not Cared For in Hospital
--- NOTE | 2019-01-29 15:41 | PDOC TRANSFER SUMMARY ---
General - Admit/Disc Date/PCP Admission Date/Primary Care Provider: 01/26/19 15:33 Discharge Date: 01/29/19 - Discharge Diagnosis (1) Calculus of gallbladder with acute cholecystitis and obstruction Is this a current diagnosis for this admission?: Yes (2) Atrial fibrillation Is this a current diagnosis for this admission?: Yes (3) Coronary artery disease Is this a current diagnosis for this admission?: Yes (4) Elevated liver chemistry Is this a current diagnosis for this admission?: Yes (5) Urinary tract infection Is this a current diagnosis for this admission?: Yes (6) Hyperlipidemia Is this a current diagnosis for this admission?: Yes (7) Hypertension Is this a current diagnosis for this admission?: Yes - Additional Information Resuscitation Status: Full Code Discharge Diet: Cardiac Discharge Activity: Activity As Tolerated Prescriptions: Cefuroxime Axetil [Ceftin 250 mg Tablet] 250 mg PO Q12A #8 tablet Home Medications: Cholecalciferol (Vitamin D3) [Vitamin D3 1000 Unit Tablet] 1,000 unit PO DAILY 08/10/17 Isosorbide Mononitrate [Isosorbide Mononitrate ER] 30 mg PO DAILY 08/10/17 Metoprolol Tartrate [Lopressor 50 mg Tablet] 50 mg PO Q12 08/10/17 Mirtazapine 7.5 mg PO QHS 08/10/17 Simvastatin [Zocor 40 mg Tablet] 40 mg PO QHS 08/10/17 Acetaminophen [Tylenol 325 mg Tablet] 650 mg PO Q6HP PRN 01/26/19 Amlodipine Besylate [Norvasc 2.5 mg Tablet] 2.5 mg PO DAILY 01/26/19 Hydrochlorothiazide [Hydrodiuril 25 mg Tablet] 25 mg PO DAILY 01/26/19 Pantoprazole Sodium [Protonix] 40 mg PO DAILY 01/26/19 Tramadol HCl [Ultram 50 mg Tablet] 50 mg PO Q6HP PRN 01/26/19 Cefuroxime Axetil [Ceftin 250 mg Tablet] 250 mg PO Q12A #8 tablet 01/29/19 History of Present Illness Admission Date/PCP: 01/26/19 15:33 Patient complains of: Abdominal pain and nausea History of Present Illness: SARBJIT BECERRIL is a 78 year old female presenting with 3-day history of diminished appetite and nausea with abdominal discomfort. Unknown whether she has had any fever or jaundice. Patient is a residential patient and has multiple medical problems including coronary artery disease status post coronary artery bypass grafting a number of years ago. She had a gastric ulcer bleed several months ago that was treated medically and with stoppage of her anticoagulation, her bleeding stopped. Unfortunately at the time of her bleed according to the family she suffered a myocardial infarction but she did not undergo any cardiac catheterization at that time. Patient had been on anticoagulation for deep venous thrombosis and pulmonary embolism in the past. Patient recently had a vena cava filter performed since her anticoagulation has been stopped. She has no history of stroke. Her gallstone had been noted on previous CT scan. Current ultrasound study demonstrates evidence of possible cholecystitis with gallbladder wall 4 mm, gallstones, and small amount of pericholecystic fluid. Patient denies any history of prior abdominal surgeries. Patient was admitted to the medical surgical floor on telemetry. He was placed on IV Zosyn for cholecystitis. Hospitalist service was consulted for assistance in her management of her multiple medical problems. Cardiology was consulted because of her CAD history. Dr. Soto saw the consult. She underwent a Lexiscan stress test which was negative for ischemia. The patient was cleared for surgery by Dr. Gallagher. She did have periods of paroxysmal rate controlled atrial fibrillation. She was taken to the OR by Dr. Jerez for laparoscopic cholecystectomy. She had a drain placed for 24 hours. This was removed this morning. Her pain is been well controlled with oral Toradol. She was also found to have a urinary tract infection which was covered by the IV Zosyn. Today this was transitioned to Ceftin 250 mg twice daily for the next 4 days. She can return to [facility] where she resides. She has been tolerating full liquids to GI soft diet with no nausea. Physical Exam Vital Signs: Temp Pulse Resp BP Pulse Ox 98.1 F 57 L 18 128/51 H 99 01/29/19 12:00 01/29/19 12:00 01/29/19 12:00 01/29/19 12:00 01/29/19 12:00 Intake & Output 01/28/19 01/29/19 01/30/19 06:59 06:59 06:59 Intake Total 4380 3280 50 Output Total 2355 130 Balance 2024 3150 50 Weight 75.2 kg 75.7 kg General appearance: PRESENT: no acute distress, well-developed, well-nourished Head exam: PRESENT: atraumatic, normocephalic Eye exam: PRESENT: conjunctiva pink, EOMI, PERRLA. ABSENT: scleral icterus Ear exam: PRESENT: normal external ear exam Mouth exam: PRESENT: moist, tongue midline Neck exam: ABSENT: carotid bruit, JVD, lymphadenopathy, thyromegaly Respiratory exam: PRESENT: clear to auscultation paco. ABSENT: rales, rhonchi, wheezes Cardiovascular exam: PRESENT: RRR, systolic murmur - 2/6 left sternal border. ABSENT: diastolic murmur, rubs Pulses: PRESENT: normal dorsalis pedis pul Vascular exam: PRESENT: normal capillary refill GI/Abdominal exam: PRESENT: normal bowel sounds - along laparoscopic incision sites, soft, tenderness Rectal exam: PRESENT: deferred Extremities exam: PRESENT: full ROM. ABSENT: calf tenderness, clubbing, pedal edema Neurological exam: PRESENT: alert, awake, oriented to person, oriented to place, oriented to time, oriented to situation, CN II-XII grossly intact. ABSENT: motor sensory deficit Psychiatric exam: PRESENT: appropriate affect, normal mood. ABSENT: homicidal ideation, suicidal ideation Skin exam: PRESENT: dry, intact, warm. ABSENT: cyanosis, rash Results Laboratory Results: 01/29/19 06:08 01/29/19 06:08 01/29/19 01/29/19 06:08 06:08 WBC 9.0 RBC 3.30 L Hgb 9.4 L Hct 27.6 L MCV 84 MCH 28.4 MCHC 33.9 RDW 19.9 H Plt Count 358 Seg Neutrophils % 80.3 H Lymphocytes % 12.0 L Monocytes % 7.4 Eosinophils % 0.1 Basophils % 0.2 Absolute Neutrophils 7.2 Absolute Lymphocytes 1.1 Absolute Monocytes 0.7 Absolute Eosinophils 0.0 Absolute Basophils 0.0 Sodium 140.6 Potassium 4.2 Chloride 110 H Carbon Dioxide 22 Anion Gap 9 BUN 39 H Creatinine 1.70 H Est GFR ( Amer) 35 L Est GFR (Non-Af Amer) 29 L Glucose 109 Calcium 8.2 L Magnesium 1.5 L Total Bilirubin 0.5 AST 28 ALT 17 Alkaline Phosphatase 121 Total Protein 4.8 L Albumin 2.4 L 01/28/19 01/29/19 05:25 08:56 Troponin I < 0.012 0.015 Impressions: Abdomen Ultrasound 01/26/19 11:39 IMPRESSION: Acute cholecystitis. Transfer Plan - Disposition Transfer Plan: [facility] - Time Spent with Patient Time spent with patient: Less than 30 Minutes Qualifiers - * PATIENT BEING DISCHARGED WITH ANY OF THE FOLLOWING DIAGNOSIS: No
[2019-01-29 16:02] VITALS: BP 102/53
[2019-01-29] MEDS ORDERED: CEFUROXIME 250 MG TABLET PO SCH (18:00)
--- NOTE | 2019-01-29 20:59 | Progress Note ---
Provider Note Provider Note: CARDIOLOGY PROGRESS NOTE by Dr. Alpa Gallagher on 01/29/2019. OBJECTIVE: The patient is doing well postop. She had a drain removed from the operative site of cholecystectomy. She denies any chest pain or discomfort. There is no shortness of breath. There is no PND orthopnea. There is no leg edema. The patient is converted to sinus bradycardia. There is no TIA CVA symptoms. There is no pedal edema. There is no ventricular arrhythmia seen on the monitor. PHYSICAL EXAMINATION: The patient is well-built and well-nourished. In no acute distress. Selected Entries 01/29/19 12:00 Temperature 98.1 F Temperature Oral Source Pulse Rate 57 L Respiratory 18 Rate Blood Pressure 128/51 H [Right 1] Blood Pressure 76 Mean [Right 1] Blood Pressure Sitting Position [Right 1] O2 Sat by Pulse 99 Oximetry Oxygen Delivery Room Air Method ( includes room air) Head is atraumatic normocephalic. EYES: Pupils are equal round regular, reactive to light accommodation. External ocular movements are normal. There is no conjunctival pallor. There is no scleral icterus. NOSE: There is no deviated nasal septum. There is no inflammation of his mucous membrane. EARS: Tympanic memories are intact. External auditory canals are clear MOUTH: There is no ulcers in the mouth. There is no bleeding from the gums. Mucous membranes of mouth and tongue are moist. THROAT: There is no redness of the oropharynx. There is no exudates. SKIN: There is no skin lesions or skin rashes. There is no particular ecchymosis. NECK: Supple. There is no JVD. Carotids are equal there is no bruit. There is no lymphadenopathy. There is no goiter. LUNGS: Clear to auscultation percussion, without any rhonchi rales or wheezing. On palpation there is no chest wall tenderness. HEART: S1-S2 is heard. S1 is of variable intensity there is no S3 gallop. There is no S4 gall op. There is systolic murmur left sternal border and the apex without radiation. There is no rub. ABDOMEN: Soft there is minimal discomfort on palpating the right upper quadrant. There is no rebound guarding or rigidity. There is no hepatosplenomegaly. Bowel sounds are well heard. EXTREMITIES: Femorals are slightly diminished. There is no femoral bruits. Leg pulses slightly diminished. There is no pedal edema. There is no DVT or cellulitis. There is no calf tenderness. There is no cyanosis or clubbing. Capillary refill is normal. [employer]: The patient is conscious awake alert oriented x3 with no focal deficit. PSYCHIATRIC: The patient judgment insight are intact her affect is normal. 01/28/19 01/29/19 01/29/19 05:25 06:08 06:08 WBC 9.0 RBC 3.30 L Hgb 9.4 L Hct 27.6 L MCV 84 MCH 28.4 MCHC 33.9 RDW 19.9 H Plt Count 358 Seg Neutrophils % 80.3 H Lymphocytes % 12.0 L Monocytes % 7.4 Eosinophils % 0.1 Basophils % 0.2 Absolute Neutrophils 7.2 Absolute Lymphocytes 1.1 Absolute Monocytes 0.7 Absolute Eosinophils 0.0 Absolute Basophils 0.0 Sodium 140.6 Potassium 4.2 Chloride 110 H Carbon Dioxide 22 Anion Gap 9 BUN 39 H Creatinine 1.70 H Est GFR (Non-Af Amer) 29 L Glucose 109 Calcium 8.2 L Magnesium 1.5 L Total Bilirubin 0.5 Direct Bilirubin 0.4 Neonat Total Bilirubin Not Reportable Neonat Direct Bilirubin Not Reportable Neonat Indirect Bili Not Reportable AST 28 ALT 17 Alkaline Phosphatase 121 Troponin I < 0.012 Total Protein 4.8 L Albumin 2.4 L 01/29/19 08:56 WBC RBC Hgb Hct MCV MCH MCHC RDW Plt Count Seg Neutrophils % Lymphocytes % Monocytes % Eosinophils % Basophils % Absolute Neutrophils Absolute Lymphocytes Absolute Monocytes Absolute Eosinophils Absolute Basophils Sodium Potassium Chloride Carbon Dioxide Anion Gap BUN Creatinine Est GFR (Non-Af Amer) Glucose Calcium Magnesium Total Bilirubin Direct Bilirubin Neonat Total Bilirubin Neonat Direct Bilirubin Neonat Indirect Bili AST ALT Alkaline Phosphatase Troponin I 0.015 Total Protein Albumin EKG: Shows sinus bradycardia. Nonspecific IVCD. Old inferior wall [place]. IMPRESSION/RECOMMENDATION: 1. Paroxysmal atrial fibrillation. At present patient in sinus bradycardia.. Continue beta-blockers. Patient is on a candidate for chronic anticoagulation, in view of the prior history of significant anemia due to GI bleed and diverticular disease and peptic ulcer disease. 2. Coronary artery disease. History of [place]. History of coronary bypass graft surgery. No anginal symptoms. Continue beta-blockers, and nitrates. No evidence of ischemia on the EKG, and negative troponin today. 3. Hypertension: Blood pressure is. Continue his current blood pressure medications. 4. Hyperlipidemia: Continue statin. 5. Past history of GI bleed, with history of diverticulosis and history of peptic ulcers found on upper and lower GI endoscopies. At present no evidence of active bleeding. Hemoglobin is stable. 6. History of IVC filter placed. This filter was placed in view of the fact that the patient has prior history of PE and DVT, and with the patient's GI bleed and with a diverticular disease and peptic ulcer disease which are all contraindications for continuing chronic anticoagulation., To prevent any catastrophic B. 7. Past history of pulmonary embolism and DVT. No recurrence. 8. Chronic kidney disease stage III: Follow-up with nephrology as outpatient. 9. Recent cholelithiasis/acute cholecystitis. Patient status post surgery. Stable. MEDICATIONS reviewed. Management plan discussed with other caregiving providers on the case. Medical decision making is now of moderate complexity. 40 minutes spent on this patient with more than 50% of time spent in direct patient care. We will sign off. Patient being transferred to a rehab center. She will follow-up with me after she is discharged from the rehab center.
--- NOTE | 2019-01-29 22:49 | EKG REPORT ---
SEVERITY:- ABNORMAL ECG - SINUS RHYTHM NONSPECIFIC INTRAVENTRICULAR CONDUCTION DELAY BORDERLINE INFERIOR Q WAVES : Confirmed by: Linh Winter 29-Jan-2019 22:48:35
== END 2019-01-29 19:58 | DRG 418 ==
LOC: ER 11:25 → EH 15:33 → UNDOADMIN 15:33 → 4W 17:35
PROVIDERS: ADMIT Surgery; ATTEND Surgery
PROC: 0FT44ZZ Resection of Gallbladder, Percutaneous Endoscopic Approach (ICD-10-PCS; principal; 2019-01-27 20:15)
DX: K80.01 Calculus of gallbladder with acute cholecystitis with obstruction (principal); N39.0 Urinary tract infection, site not specified; N17.9 Acute kidney failure, unspecified; I25.10 Atherosclerotic heart disease of native coronary artery without angina pectoris; E78.5 Hyperlipidemia, unspecified; I10 Essential (primary) hypertension; I48.0 Paroxysmal atrial fibrillation; M06.9 Rheumatoid arthritis, unspecified; B96.20 Unspecified Escherichia coli [E. coli] as the cause of diseases classified elsewhere; Z79.899 Other long term (current) drug therapy; Z95.1 Presence of aortocoronary bypass graft; Z86.711 Personal history of pulmonary embolism; Z86.718 Personal history of other venous thrombosis and embolism; Z95.5 Presence of coronary angioplasty implant and graft; Z82.49 Family history of ischemic heart disease and other diseases of the circulatory system; Z87.11 Personal history of peptic ulcer disease
CPT/HCPCS: 36415; 51701; 76705; 78452; 790; 80048; 80053; 80061; 81001; 83735; 84484; 85025; 87040; 87070; 87075; 87077; 87086; 87088; 87186; 87205; 88304; 93005; 93010; 93017; 93306; 99284; A9500; J1100; J1885; J2250; J2405; J2543; J2704; J2785; J3010; J3490; J7030; Q9969

== ENCOUNTER → 2020-05-21 | Outpatient (CLI) | payer MEDICARE, MEDICAID ==
--- NOTE | 2020-05-21 14:45 | WOMENS IMAGING REPORT ---
EXAM DESCRIPTION: BONE DENSITY HIP/SPINE IMAGES COMPLETED DATE/TIME: 05/21/2020 2:10 pm REASON FOR STUDY: M81.0 AGE-RELATED OSTEOPOROSIS WITHOUT CURRENT PATHOLOGICAL FRACTURE M81.0 AGE-RE LATED OSTEOPOROSIS W/O CURRENT PATHOLOGICAL FRAC COMPARISON: None. TECHNIQUE: Dual-Energy X-ray Absorptiometry (DEXA) of the AP Spine and Hip. LIMITATIONS: None. FINDINGS: LUMBAR SPINE: The bone mineral density (BMD) measured from L1-L4 in the AP projection correlates with a T-score of -0.2, which is normal as defined by the World Health Organization. BMD Change vs Baseline: N/A HIP: The bone mineral density (BMD) measured in the left femoral neck correlates with a T-score of -5.7, w hich is osteoporosis as defined by the World Health Organization. BMD Change vs Baseline: N/A 10 year Fracture Risk Assessment: Major Osteoporotic Fracture: None reported because some of the T-scores are at or below -2.5. Hip Fracture: None reported because some of the T-scores are at or below -2.5. IMPRESSION: 1. LUMBAR SPINE WHO CLASSIFICATION: NORMAL. 2. HIP WHO CLASSIFICATION: OSTEOPOROSIS. OVERALL ASSESSMENT: WHO CLASSIFICATION: OSTEOPOROSIS. COMMENT: The World Health Organization defines low BMD as follows: T-score: Normal: At or above -1.0 Osteopenia: Between -1.0 and -2.5 Osteoporosis: At or below -2.5 without fractures Established osteoporosis: At or below -2.5 with fractures In general, you may wish to consider: Diagnosis Treatment Follow-up DEXA Normal BMD Prevention 2-3 years Osteopenia Prevention/Therapy 1-2 years Osteoporosis Therapy Yearly TECHNICAL DOCUMENTATION: JOB ID: [id number] 2010 [employer]- All Rights Reserved Reading location - IP/workstation name: [email or web address]
== END ==
LOC: WI 13:40
PROVIDERS: ATTEND Nurse Practitioner Family
DX: M81.0 Age-related osteoporosis without current pathological fracture (principal)
CPT/HCPCS: 77080